=== PATIENT | male | born 1980 | race Caucasian/White ===

== ENCOUNTER 2024-10-17 01:13 | Emergency (ER) | payer BC, SELFPAY ==
--- NOTE | ~2024-10-17 | CT_ITS ---
EXAMINATION: CT abdomen pelvis w con DATE: 10/17/2024 10:04 INDICATION: Abdominal pain TECHNIQUE: Computed tomography (CT) of the abdomen and pelvis was performed with 100 CC Omnipaque 350 intravenous contrast. Automated exposure control and iterative reconstruction technique were employe d. Exam dose: 1036.88 mGy-cm total exam DLP. COMPARISON: 08/01/2024 CT abdomen pelvis FINDINGS: The lung bases are clear. Normal heart size. No pericardial or pleural effusion. The liver, gallbladder, bile ducts, spleen, pancreas, pancreatic duct, adrenal glands and right kidne y are unremarkable. Absent left kidney. Normal caliber of the abdominal aorta. No intraperitoneal or retroperitoneal or pelvic mass lesion or adenopathy or ascites. Mild prostate calcification. There is diffuse thickening of the urinary bladder wall which may be due to under distention versus c ystitis or mild bladder outlet obstruction. Normal appendix. No bowel obstruction or intraperitoneal free air. Small fat-containing umbilical hernia. Moderately prominent degenerative disc disease at L3-4. Mild degenerative spurring of the thoracic and lumbar spine is noted otherwise. No suspicious osteolytic or osteoblastic lesions. IMPRESSION: Normal appendix No bowel obstruction or free air Absent left kidney Diffuse bladder wall thickening; this may be due to under distention versus cystitis or mild bladder outlet obstruction. Correlation with urinalysis is recommended Reviewed, dictated and finalized at [facility] Reviewed, dictated and finalized at [facility] SPECIALIST IMPRESSION: Normal appendix No bowel obstruction or free air Absent left kidney Diffuse bladder wall thickening; this may be due to under distention versus cys titis or mild bladder outlet obstruction. Correlation with urinalysis is recomm ended
[2024-10-17 01:23] VITALS: BP 134/90; PULSE 86; RESP 15; TEMP 36.8; O2SAT 100
[2024-10-17 06:34] VITALS: BP 135/81; PULSE 87; RESP 14; TEMP 36.3; O2SAT 100
[2024-10-17 09:26] LABS: Basophils Percent Auto 0.2 % (0.2-1.2); Eosinophils Absolute Auto 0.1 K/mm3 (0-0.3); Eosinophils Percent Auto 1.2 % (0-4.4); Hematocrit 44.3 % (42.0-52.0); Immature Granulocyte Absolute 0.04 K/mm3 (0.00-0.031); Immature Granulocyte Percent A 0.3 % (0-0.5); Lymphocytes Absolute Auto 1.79 K/mm3 (0.9-3.2); Lymphocytes Percent Auto 14.7 % (18.3-44.2); Mean Corpuscular HGB Conc 33.9 g/dl (32-36); Mean Corpuscular Hemoglobin 31.4 pg (26-34); Mean Corpuscular Volume 92.9 fl (80-100); Monocytes Absolute Auto 0.9 K/mm3 (0.1-0.6); Monocytes Percent Auto 7.4 % (2.6-8.5); Neutrophils Absolute Auto 9.3 K/mm3 (1.3-6.7); Neutrophils Percent Auto 76.2 % (45.5-73.1); Platelet Count Result 298 k/mm3 (150-375); Red Blood Count 4.77 M/mm3 (4.6-6.20); Red Cell Distribution Width 13.2 % (11.5-14.5); White Blood Count 12.2 K/mm3 (4.5-10.0)
[2024-10-17 09:40] LABS: Alanine Aminotransferase 23 U/L (6-50); Albumin Level 4.3 g/dL (3.5-5.1); Alkaline Phosphatase 70 U/L (38-126); Anion Gap 3 mmol/L (4-12); Aspartate Amino Transferase 23 U/L (17-59); Bilirubin,Total 0.9 mg/dL (0.2-1.3); Blood Urea Nitrogen 19 mg/dL (9-20); Calcium 9.8 mg/dL (8.4-10.2); Carbon Dioxide 32 mmol/L (22-30); Chloride 104 mmol/L (98-107); Estimated CRCL calculation 65 ml/min; Estimated Glomerular Filt Rate 51; Glucose 104 mg/dL (65-110); Lipase 77 U/L (23-300); Potassium 3.8 mmol/L (3.4-5.0); Sodium 139 mmol/L (137-145)
--- NOTE | 2024-10-17 09:44 | ED_ITS ---
HPI - Abdominal Pain General Chief Complaint: Abdominal Pain Stated Complaint: nausea, vomiting, abd pain Time Seen by Provider: 10/17/24 09:39 Source: patient Mode of arrival: ambulatory Limitations: no limitations History of Present Illness HPI narrative: 44 years old white male drove himself to the emergency room complaining of left abdominal pain associated with nausea vomiting up to 6 time, diarrhea up to 12 time since yesterday noon. History of IBS/diarrhea. He denies any fever or chills or respiratory symptoms or sick contact. Related Data Home Medications ?Medication ?Instructions ?Recorded ?Confirmed ?Last Taken ?Type albuterol 90 mcg-budesonide 80 2 inh inhalation DAILY PRN 10/17/24 10/17/24 Unknown History mcg/actuation HFA aerosol inhaler shortness of breath bupropion HCl 300 mg 24 hr tablet, 300 mg PO DAILY 10/17/24 10/17/24 10/16/24 History extended release (Wellbutrin XL) cetirizine 10 mg tablet (24Hour 10 mg PO Q12H PRN allergy symptoms 10/17/24 10/17/24 10/16/24 History Allergy) duloxetine 60 mg capsule,delayed 60 mg PO DAILY 10/17/24 10/17/24 10/16/24 History release (Cymbalta) pantoprazole 20 mg tablet,delayed 20 mg PO QAM 10/17/24 10/17/24 10/16/24 History release tadalafil 20 mg tablet (Cialis) 20 mg PO DAILY PRN sexual activity 10/17/24 10/17/24 10/10/24 History valacyclovir 500 mg tablet 500 mg PO DAILY 10/17/24 10/17/24 10/16/24 History (Valtrex) Allergies Allergy/AdvReac Type Severity Reaction Status Date / Time No Known Allergies Allergy Verified 10/17/24 09:08 Review of Systems 2 Review of Systems: All systems reviewed & are unremarkable except as noted in HPI and below Exam 2 Narrative: General appearance: Well-developed, well-nourished Skin: Normal color Head: Normocephalic, nontraumatic Eyes: Clear conjunctiva Neck: Supple, nontender Chest and respiratory: Airway patent, no respiratory distress, no accessory muscle use Heart: Regular rate/rhythm Abdomen: Soft, diffuse tenderness, no organomegaly, hyperactive bowel sounds Musculoskeletal: Normal range of motion, nontender back Neurologic: Alert and oriented ?3, PATIENT ACCESS ASSOCIATE is normal as tested, no gross motor deficit Course Vital Signs Vital signs: Vital Signs Temperature 36.8 C 10/17/24 01:23 Pulse Rate 86 10/17/24 01:23 Respiratory Rate 15 10/17/24 01:23 Blood Pressure 134/90 10/17/24 01:23 Pulse Oximetry 100 10/17/24 01:23 Oxygen Delivery Room Air 10/17/24 01:23 Temperature 36.3 C L 10/17/24 06:34 Pulse Rate 76 10/17/24 11:00 Respiratory Rate 17 10/17/24 11:00 Blood Pressure 118/67 10/17/24 11:00 Pulse Oximetry 96 10/17/24 11:00 Oxygen Delivery Room Air 10/17/24 01:23 MDM - Abdominal Pain MDM Narrative Medical decision making narrative: Patient came with abdominal pain, nausea vomiting and diarrhea for the last 24 hours Vital signs are stable Physical examination consistent with diffuse abdominal tenderness and hyperactive bowel sounds Differential diagnosis includes viral gastroenteritis, IBS flare, dehydration, electrolyte imbalance Blood workup today includes CBC, CMP, lipase showed WBC of 12.2, creatinine of 1.5, Urinalysis showed CT abdomen and pelvis with IV contrast showed Differential Diagnosis Differential diagnosis: Likely abdominal pain, acute appendicitis, diverticulitis, gastroenteritis and pancreatitis Medical Records Attestation: I reviewed the patient's medical records. Lab Data Attestation: I reviewed the patient's lab results. 10/17/24 09:18 10/17/24 09:18 Labs: Lab Results 10/17/24 10/17/24 Range/Units 09:18 10:18 WBC 12.2 H (4.5-10.0) K/mm3 RBC 4.77 (4.6-6.20) M/mm3 Hgb 15.0 (14.0-18.0) g/dL Hct 44.3 (42.0-52.0) % MCV 92.9 (80-100) fl MCH 31.4 (26-34) pg MCHC 33.9 (32-36) g/dl RDW 13.2 (11.5-14.5) % Plt Count 298 (150-375) k/mm3 MPV 9.0 (7.4-10.4) fl Immature Gran % (Auto) 0.3 (0-0.5) % Neut % (Auto) 76.2 H (45.5-73.1) % Lymph % (Auto) 14.7 L (18.3-44.2) % [place] % (Auto) 7.4 (2.6-8.5) % Eos % (Auto) 1.2 (0-4.4) % Baso % (Auto) 0.2 (0.2-1.2) % Lymph # (Auto) 1.79 (0.9-3.2) K/mm3 [place] # (Auto) 0.9 H (0.1-0.6) K/mm3 Eos # (Auto) 0.1 (0-0.3) K/mm3 Baso # (Auto) 0.0 (0.0-0.1) K/mm3 Abs Immat Gran (auto) 0.04 H (0.00-0.031) K/mm3 Absolute Neuts (auto) 9.3 H (1.3-6.7) K/mm3 Absolute Nucleated RBC 0.000 (0.0-0.012) K/mm3 Nucleated RBC % 0.0 (0.0-0.2) % Sodium 139 (137-145) mmol/L Potassium 3.8 (3.4-5.0) mmol/L Chloride 104 (98-107) mmol/L Carbon Dioxide 32 H (22-30) mmol/L Anion Gap 3 L (4-12) mmol/L BUN 19 (9-20) mg/dL Creatinine 1.50 H (0.7-1.3) mg/dL Estim Creat Clear Calc 65 ml/min Estimated GFR 51 L (59 - ) Glucose 104 (65-110) mg/dL Calcium 9.8 (8.4-10.2) mg/dL Total Bilirubin 0.9 (0.2-1.3) mg/dL AST 23 (17-59) U/L ALT 23 (6-50) U/L Alkaline Phosphatase 70 (38-126) U/L Total Protein 7.0 (6.3-8.2) g/dL Albumin 4.3 (3.5-5.1) g/dL Lipase 77 (23-300) U/L Urine Color Yellow (Yellow) Urine Appearance Clear (Clear) Urine pH 6.5 (5.0-9.0) Ur Specific [place] > 1.045 H (1.001-1.035) Urine Protein Trace (Negative) mg/dL Urine Glucose (UA) 2+ H (Negative) mg/dL Urine Ketones Trace H (Negative) mg/dL Ur Blood (Man) Negative (Negative) Urine Nitrate Negative (Negative) Urine Bilirubin Negative (Negative) Urine Urobilinogen 1.0 (<2.0) mg/dL Leukocyte Esterase Rfl Negative (Negative) CHRISTINE/UL Urine RBC 0-2 (0-2) /hpf Urine WBC 0-5 (0-3) /hpf Ur Squamous Epith Cells None seen (Few) /hpf Urine Bacteria None seen /hpf Urine Casts 0-2 Imaging Data Radiologist's impression: ITS Impressions Abdomen/Pelvis CT 10/17/24 10:43 IMPRESSION: Normal appendix No bowel obstruction or free air Absent left kidney Diffuse bladder wall thickening; this may be due to under distention versus cystitis or mild bladder outlet obstruction. Correlation with urinalysis is recommended Critical Care Time Critical Care Time Critical Care Time: No Discharge Plan Discharge Clinical Impression: Gastroenteritis, Dehydration Patient Disposition: Home, Self-Care Condition: Stable Instructions: Dehydration (DC), Gastroenteritis (ED) Additional Instructions: Return if symptoms are worsening , call your family physician for appointment, take Tylenol as as needed for aches and pain, continue home medications. Check blood workup for kidney function in 5 days, encourage fluid intake Patient Language: Telugu Prescriptions: New ondansetron 4 mg tablet,disintegrating 4 mg PO Q4H 0 Days Qty: 10 0RF Rx Instructions: give 1st dose 30min before emetogenic chemo No Action valacyclovir [Valtrex] 500 mg tablet 500 mg PO DAILY bupropion HCl [Wellbutrin XL] 300 mg tablet extended release 24 hr 300 mg PO DAILY pantoprazole 20 mg tablet,delayed release (DR/EC) 20 mg PO QAM duloxetine [Cymbalta] 60 mg capsule,delayed release(DR/EC) 60 mg PO DAILY albuterol-budesonide 90-80 mcg/actuation HFA aerosol inhaler 2 inh inhalation DAILY PRN (Reason: shortness of breath) tadalafil [Cialis] 20 mg tablet 20 mg PO DAILY PRN (Reason: sexual activity) Rx Instructions: administer approximately 30min before sexual activity; do not use more than 1 dose per 24hrs cetirizine [24Hour Allergy] 10 mg tablet 10 mg PO Q12H PRN (Reason: allergy symptoms) Follow-up/Referrals: UNKNOWN,DOCTOR [Non-Staff] -
[2024-10-17] MEDS: ONDANSETRON INJ 4 MG/2 ML VIAL IV PUSH (10:15)
[2024-10-17] MEDS: SODIUM CHLORIDE 0.9% IV 1,000 ML 999 ML IV CONT ×2 (10:15→10:58)
[2024-10-17] MEDS: fentaNYL CITRATE INJ (*CRX) 100 MCG/2 ML VIAL 50 MCG IV PUSH (10:15)
[2024-10-17 10:34] LABS: Add Urine Microscopic? YES; Appearance Urine Clear (Clear); Bacteria Urine None Seen /hpf; Bilirubin Urine Negative (Negative); Blood Urine Negative (Negative); Color Urine Yellow (Yellow); Glucose Urine UA 2+ mg/dL (Negative); Ketones Urine Trace mg/dL (Negative); Leukocyte Esterase Ur Negative LEU/UL (Negative); Nitrate Urine Negative (Negative); Non Pathogenic Casts 0-2; Protein Urine Trace mg/dL (Negative); RBC Urine 0-2 /hpf (0-2); Specific Grav Ur > 1.045 (1.001-1.035); Squamous Epithelial Cell Urine None Seen /hpf (Few); WBC Urine 0-5 /hpf (0-3); pH Urine 6.5 (5.0-9.0)
[2024-10-17 11:00] VITALS: BP 118/67; PULSE 76; RESP 17; O2SAT 96
[2024-10-17 11:26] VITALS: BP 112/59; PULSE 85; RESP 18; TEMP 36.6; O2SAT 98
--- OUTSIDE RECORDS SUMMARY | 2024-10-24 12:28 | XMS_ITS | Continuity of Care Document ---
Author Organization [place] - [facility], [facility] [place] Address [address] [place] [address] Care Team Providers Care Coffee Maker Servicer Name Role Phone ALTON SEO Primary Care Provider [phone] Assessment Encounter Date Assessment Date Assessment LastModified by Organization Details LastModified Time 10/01/2024 10/01/2024 The patient gave verbal consent using TelePhonic services and the consent is documented in the medical record prior to using the service. The patient has been informed of what a TeleMedicine visit is. Patient is located at home. Provider is located at office. Names and roles of persons in addition to the patient and provider participating in telemedicine services include staff, . The patient had a 11 minute TeleMedicine consultation via phone call to discuss the following: D/w pt about his findings and further plan of care. Explained about different options for her. Pt declined to go to ED. Meds as directed. Good liquid and fiber intake explained. Educated pt about alarming symptoms to monitor at home and call us back or get checked in ED. Pt verbalized understanding it. F/u as directed. [email or web address] Not available 10/01/2024 14:30:33 Plan of Treatment Reminders Order Date Submit Date Provider Last Modified By Organization Details Last Modified Time Details Appointments Follow Up 2024 09:30A Braden Seo MD Not available Not available Not available Any 15 2024 07:30A Braden Cardona MD Not available Not available Not available Lab None recorded. Referral rheumatol ogist referral - Please call patient to schedule an appointme nt. Thank you. 2023 024 [facility], [address], [place], [address], 10/18/2024 23:19:32 Procedures None recorded. Surgeries None recorded. Imaging None recorded. Medication Orders ondansetr on 4 mg disintegr ating tablet 2023 024 [id number], [address] [facility], [place], [place], [id number], 10/01/2024 14:26:50 Patient TargetsNo targets recorded. Patient Instructions Encounter Date Encounter Id Patient Instructions Last Modified By Organization Details Last Modified Time 10/01/2024 [id number] Due to the COVID-19 (Novel Coronavirus) pandemic, it is within this context (and with the understanding that this method of patient encounter is in the patient? s best interest as well as the health and safety of other patients and the public) that ? telehealth? is being provided for this patient encounter rather than a [id number] visit. This patient encounter is appropriate at this time. This patient has been advised of the potential risks and limitations of this mode of treatment (including, but not limited to, the absence of in-person examination) and has agreed to be treated in a remote fashion despite these risks. Any and all of the patient? s/patient? s family? s questions on this issue have been answered, and I have made no promises or guarantees to the patient. The patient has also been advised to contact this office for worsening conditions or problems, and seek emergency medical treatment and/or call 911 if the patient deems either necessary. HPI and/or vitals, if listed, were provided by the patient. 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 Raynaud's, chronic nausea (Has seen GI and got all work up done) Please call patient to schedule an appointment. Thank you. Referring Physician: Alton Seo, Family Medicine, Encounter Date: 10/01/2024 Results Created Date Observation Date Name Description Value Unit Range Abnormal Flag Note LastModifiedBy Organization Detail LastModifiedTime 10/16/19 25 10/16/2024 XR, shoul pavithra, 2 or more view No observ ation record ed. [address] [facility] [address], [place], [address], 10/20/2024 10:48:08 10/16/19 25 10/16/2024 XR, hand, 3 or more view No observ ation record ed. [address] [facility] [address], [place], [address], 10/20/2024 10:49:45 10/16/19 25 10/16/2024 XR, cervi cuca spine , 4 or 5 view No observ ation record ed. [address] [facility] [address], [place], [address], 10/20/2024 10:50:27 10/17/19 25 10/16/2024 XR, shoul pavithra, 2 or more view No observ ation record ed. [address] [facility] [address], [place], [address], 10/20/2024 10:53:53 10/17/19 25 10/17/2024 CT, abdom en + pelvi s, w/ contr ast No observ ation record ed. [place] [address], [place], [address], 10/20/2024 10:54:31 Result Notes None recorded. Problems Name Problem SNOMED Code Status Onset Date Resolution Date Notes Provider Name and Address Organization Details Recorded Time Lateral epicondylitis 774303704 Active Not Available [facility] 3 17:44:47 Mixed anxiety and depressive disorder 363357320 Active 2017 Not Available [facility] 3 17:44:47 Gastroesophag eal reflux disease 211625319 Active Not Available [facility] 3 17:44:47 Raynaud's phenomenon 340725983 Active Not Available [facility] 3 17:44:47 Vitamin D deficiency 58716636 Active 2017 Not Available [facility] 3 17:44:47 Seasonal allergic rhinitis 714211877 Active Not Available [facility] 3 17:44:47 Recurrent herpes simplex 92973583 Active 2017 Not Available [facility] 3 17:44:47 Obesity 018140350 Active 2017 Not Available [facility] 3 17:44:48 Hyperlipidemi a 35547394 Active 2017 Not Available [facility] 3 17:44:48 Carpal tunnel syndrome 06368522 Active Not Available [facility] 3 17:44:48 Verruca plantaris 97299788 Active 2019 Not Available [facility] 3 17:44:48 Bilateral hearing loss 70955837 Active 2022 Not Available [facility] 3 17:44:48 Erectile dysfunction 675891835 Active 2022 Alton Seo MD [address], [place], [address] , [facility] 3 14:46:49 Chronic kidney disease stage 3 437279278 Active 2023 Alton Seo MD [address], [place], [address] , [facility] 4 10:45:44 Hypertensive disorder 52761239 Active 2023 Alton Seo MD [address], [place], [address] , [facility] 4 10:51:54 Irritable bowel syndrome 24705078 Active 2023 Alton Soe MD [address], [place], [address] , [facility] 4 10:53:57 Polyarthropat hy 70232060 Active 2023 Alton Seo MD [address], [place], [address] , [facility] 4 10:54:48 Obstructive sleep apnea syndrome 76111623 Active 2023 Jeronimo Cardona MD [address], [place], [address] , [facility] 4 10:33:02 Male hypogonadism 36289526 Active 2023 Alton Seo MD [address], [place], [address] , [facility] 4 11:44:51 Gastroenterit is 96516062 Active 2023 Alton Seo MD [address], [place], [address] , [facility] 4 14:28:45 Irritable bowel syndrome with diarrhea 574476709 Active 2023 Jeny Sharma MD [address], [place], [address] , [facility] 4 12:02:46 Nausea 842442994 Active 2023 Alton Seo MD [address], [place], [address] , [facility] 4 14:20:36 Fatigue 29000465 Active 2023 Alton Seo MD [address], [place], [address] , [facility] 4 14:28:58 Viral gastritis 757957396 Active 2023 Alton Seo MD [address], [place], [address] , [facility] 4 14:29:10 Notes:Medical History: Depre ssion/Anxiety Left hearing loss Left tinnitus Rhinitis with postnasal drip Bruxism Obesity with mild OSAHS, AHI = 8, 06/03/24, on CPAP c/o IVRC Treatment-emergent central apneas Hypertension Hyperlipidemia T2DM [place] Cholelithiasis CKD ED Recurrent HSV infection Vit D deficiency Right CTS Procedure History: EGD 2015 Colonoscopy with polypectomies 2020 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 Procedures Surgical History Date Name Laterality Status Provider Name and Address Organization Details Recorded Time colonoscopy completed Ami Michael MA [facility] [employer] [facility] 06/09/2024 09:49:41 Endoscopy completed Ami Michael MA [facility] [employer] [facility] 06/09/2024 09:49:53 Imaging Results None recorded. Procedure Notes None recorded. Medical Equipment None Reported. Allergies No known drug allergies Medications Name Sig Start Date Stop Date Status Note LastModified by Organization Details LastModified Time cyclobenzap rine 10 mg tablet TAKE 1 TABLET BY MOUTH THREE TIMES DAILY FOR 10 DAYS 05/11 completed Not Available Not Available Not Available buspirone 5 mg tablet TAKE 1 TABLET BY MOUTH TWICE DAILY 09/02 completed Not Available Not Available Not Available sildenafil 50 mg tablet TAKE 1 TABLET BY MOUTH DAILY 30 MINUTES BEFORE SEXUAL ACTIVITY NEEDED 04/27 completed Not Available Not Available Not Available triamcinolo ne acetonide 0.5 % topical cream APPLY A THIN LAYER TO THE AFFECTED AREA(S) BY TOPICAL ROUTE 2 TIMES PER DAY as needed active Not Available Not Available No t Available azithromyci n 250 mg tablet TAKE 2 TABLETS (500 MG) BY ORAL ROUTE ONCE DAILY FOR 1 DAY THEN 1 TABLET (250 MG) BY ORAL ROUTE ONCE DAILY FOR 4 DAYS 03/05 completed Not Available Not Available Not Available benzonatate 200 mg capsule Take 1 capsule 3 times a day by oral route as needed for 10 days. 03/13 completed Not Available Not Available Not Available prednisone 20 mg tablet TAKE 2 TABLETS BY MOUTH DAILY FOR 5 DAYS 03/05 completed Not Available Not Available Not Available sertraline 100 mg tablet TAKE 2 TABLETS BY MOUTH EVERY EVENING 04/24 completed Not Available Not Available Not Available metronidazo le 250 mg tablet TAKE 1 TABLET BY MOUTH THREE TIMES DAILY FOR 10 DAYS 04/24 completed Not Available Not Available Not Available metronidazo le 500 mg tablet Take 1 tablet twice a day by oral route as directed for 5 days. 09/02 completed Not Available Not Available Not Available valacyclovi r 500 mg tablet TAKE 1 TABLET BY MOUTH DAILY active Not Available Not Available No t Available ciprofloxac in 500 mg tablet Take 1 tablet twice a day by oral route as directed for 5 days. 07/01 completed Not Available Not Available Not Available sulfamethox azole 800 mg-trimetho prim 160 mg tablet TK ONE T PO Q 12 H TAT 03/13 completed Not Available Not Available Not Available pantoprazol e 20 mg tablet,wendy yed release TAKE 1 TABLET BY MOUTH EVERY MORNING BEFORE BREAKFAST active Not Available Not Available No t Available meloxicam 7.5 mg tablet 08/19 completed Not Available Not Available Not Available clindamycin 1 % topical gel APPLY TO THE AFFECTED AREAS OF SCALP TWICE DAILY NEEDED 03/05 completed Not Available Not Available Not Available benzonatate 100 mg capsule TAKE 1 CAPSULE BY MOUTH TWICE DAILY NEEDED FOR COUGH 03/05 completed Not Available Not Available Not Available pantoprazol e 40 mg tablet,wendy yed release TAKE 1 TABLET BY MOUTH DAILY 07/21 completed Not Available Not Available Not Available tacrolimus 0.1 % topical ointment MICHELLE TO GROIN AREA BID PRN 04/18 completed Not Available Not Available Not Available oseltamivir 75 mg capsule TK 1 C PO BID FOR 5 DAYS 04/18 completed Not Available Not Available Not Available triamcinolo ne acetonide 0.1 % topical ointment 03/05 completed Not Available Not Available Not Available ranitidine 150 mg tablet TAKE 1 TABLET BY MOUTH TWICE DAILY 04/18 completed Not Available Not Available Not Available clotrimazol e-betametha sone 1 %-0.05 % topical cream APPLY TO THE AFFECTED AND SURROUNDI NG AREAS OF SKIN BY TOPICAL ROUTE 2 TIMES PER DAY IN THE MORNING AND EVENING FOR 2 WEEKS active Not Available Not Available No t Available sertraline 25 mg tablet 04/18 completed Not Available Not Available Not Available diclofenac sodium 75 mg tablet,wendy yed release TAKE 1 TABLET BY MOUTH EVERY 12 HOURS WITH FOOD NEEDED 03/05 completed Not Available Not Available Not Available montelukast 10 mg tablet TAKE 1 TABLET BY MOUTH EVERY DAY AT BEDTIME 05/11 completed Not Available Not Available Not Available mupirocin 2 % topical ointment MICHELLE AA TOPICALLY TID FOR 7 DAYS 04/18 completed Not Available Not Available Not Available ergocalcife rol (vitamin D2) 1,250 mcg (50,000 unit) capsule TAKE 1 CAPSULE BY MOUTH ONCE WEEKLY 05/14 completed Not Available Not Available Not Available cefuroxime axetil 500 mg tablet active Not Available Not Available No t Available levofloxaci n 500 mg tablet active Not Available Not Available Not Available methylpredn isolone 4 mg tablets in a dose pack Take as directed; finish all medicatio n 04/18 completed Not Available Not Available Not Available albuterol sulfate HFA 90 mcg/actuati on aerosol inhaler INHALE 2 PUFFS BY MOUTH EVERY 4 TO 6 HOURS NEEDED FOR SHORTNESS OF BREATH OR WHEEZING active Not Available Not Available No t Available ondansetron 4 mg disintegrat ing tablet Place 1 tablet every 6-8 hours by transling ual route as needed for 7 days. active Not Available Not Available No t Available fluticasone propionate 50 mcg/actuati on nasal spray,suspe nsion SHAKE LIQUID AND USE 2 SPRAYS IN EACH NOSTRIL EVERY DAY active Not Available Not Available No t Available sertraline 50 mg tablet 04/18 completed Not Available Not Available Not Available dicyclomine 10 mg capsule active Not Available Not Available Not Available diazepam 5 mg tablet 04/18 completed Not Available Not Available Not Available amoxicillin 875 mg-potassiu m clavulanate 125 mg tablet TAKE 1 TABLET BY MOUTH EVERY 12 HOURS FOR 10 DAYS 03/05 completed Not Available Not Available Not Available clindamycin phosphate 1 % topical solution 08/19 completed Not Available Not Available Not Available rosuvastati n 10 mg tablet TAKE 1 TABLET BY MOUTH EVERY DAY AT BEDTIME active Not Available Not Available No t Available bupropion HCl XL 300 mg 24 hr tablet, extended release TAKE 1 TABLET BY MOUTH EVERY DAY active Not Available Not Available No t Available bupropion HCl XL 150 mg 24 hr tablet, extended release TAKE 1 TABLET BY MOUTH EVERY DAY 03/05 completed Not Available Not Available Not Available tadalafil 20 mg tablet TAKE 1 TABLET BY MOUTH EVERY DAY active Not Available Not Available No t Available Cialis 5 mg tablet TK 1 T PO QD OR 2 TO 4 TS PO 3 H PRIOR TO INTERCOUR SE PRN 08/19 completed Not Available Not Available Not Available duloxetine 60 mg capsule,del ayed release TAKE 1 CAPSULE BY MOUTH EVERY DAY active Not Available Not Available No t Available metronidazo le 500mg 04/27 completed Not Available Not Available Not Available mometasone 0.1 % topical solution APPLY TO SCALP IN 3 ROWS TWICE DAILY NEEDED. RUB IN. DO NOT RINSE. 03/05 completed Not Available Not Available Not Available Pylera 140 mg-125 mg-125 mg capsule TK 3 CS PO QID FOR 7 DAYS 06/20 completed Not Available Not Available Not Available Symbicort 160 mcg-4.5 mcg/actuati on HFA aerosol inhaler INHALE 2 PUFFS BY MOUTH TWICE DAILY 04/18 completed Not Available Not Available Not Available testosteron e 20.25 mg/1.25 gram per pump act.(1.62 %) transdermal gel Apply 2 pumps every day by transderm al route as directed for 30 days. 09/02 completed Not Available Not Available Not Available Farxiga 10 mg tablet TAKE 1 TABLET BY MOUTH EVERY DAY DIRECTED active Not Available Not Available No t Available Vitals None Recorded Social History Question Answer Notes LastModified by Organizat ion Details LastModified Time Tobacco Smoking Status Never Smoker Alton Seo MD [address], [address], [facility] [employer] 04/24/2023 14:52:09 Do You Have An Advance Directive? No [id number] Information not available 12/12/2022 What Is Your Level Of Alcohol Consumption? None [id number] Information not available 12/12/2022 Do You Wear A Helmet When Biking? No [email or web address] Information not available 04/24/2023 What Is Your Level Of Caffeine Consumption? Moderate [email or web address] Information not available 04/24/2023 In The 14 Days Before Symptom Onset, Have You Had Close Contact With A Laboratory-confi rmed COVID-19 While That Case Was Ill? No Information not available 04/24/2023 In The 14 Days Before Symptom Onset, Have You Had Close Contact With A Person Who Is Under Investigation For COVID-19 While That Person Was Ill? No Information not available 04/24/2023 What Type Of Diet Are You Following? GLUTENFREE [email or web address] Information not available 04/24/2023 What Is The Highest Grade Or Level Of School You Have Completed Or The Highest Degree You Have Received? [id number] Information not available 04/24/2023 Do You Have An Electrostatic Air Filter? 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 No [email or web address] Information not available 04/24/2023 What Is The Fluoride Status Of Your Home? Unknown [email or web address] Information not available 04/24/2023 Are There Any Guns Present In Your Home? No [email or web address] Information not available 04/24/2023 Do You Have A Humidifier? Yes Information not available 05/11/2024 Do You Use Insect Repellent Routinely? Yes [email or web address] Information not available 04/24/2023 Where Do You Live? SingleLevelHouse [email or web address] Information not available 04/24/2023 Do You Have A Medical Power Of Software Analyst? No [email or web address] Information not available 04/24/2023 Do You Have Moisture Problems In Your Home? No Information not available 05/11/2024 What Was The Date Of Your Most Recent Tobacco Screening? 06/09/2024 [email or web address] Information not available 06/09/2024 Do You Have Any Pets? No Information not available 04/24/2023 What Is Your Relationship Status? [id number] Information not available 12/12/2022 Do You Use Your Seat Belt Or Car Seat Routinely? Yes [email or web address] Information not available 04/24/2023 Do You Have Smoke And Carbon Monoxide Detectors In Your Home? Yes [email or web address] Information not available 04/24/2023 Are You Passively Exposed To Smoke? No [email or web address] Information not available 04/24/2023 Are There Any Smokers In Your House? No [email or web address] Information not available 04/24/2023 Do You Participate In Social Media? No [email or web address] Information not available 04/24/2023 Do You Feel Stressed (tense, Restless, Nervous, Or Anxious, Or Unable To Sleep At Night)? [id number] [email or web address] Information not available 04/24/2023 Do You Use Any Illicit Or Recreational Drugs? No Information not available 04/24/2023 Do You Use Sunscreen Routinely? Yes [email or web address] Information not available 04/24/2023 Has Tobacco Cessation Counseling Been Provided? No [email or web address] Information not available 04/24/2023 Have You Recently Traveled Abroad? No Information not available 04/24/2023 Are You Currently In School? No [email or web address] Information not available 04/24/2023 Do You Have Any Dietary Restrictions? No [email or web address] Information not available 04/24/2023 Do You Or Have You Ever Used Any Other Forms Of Tobacco Or Nicotine? No [email or web address] Information not available 04/24/2023 Sex: Male Functional Status Question Answer Note LastModified by Organizat ion Details LastModified Time What is your exercise level? Moderate [id number] Information not available 12/12/2022 Mental Status None recorded. Family History Relationship Description Onset Age of this Age Resolved Age Notes LastModified by Organization Details LastModified Time Brother Disorder of thyroid gland [email or web address] Not available 2023 18:25:40 Brother Malignant tumor of thyroid gland [email or web address] Not available 2023 11:35:35 Brother Hyperlipidem ia [email or web address] Not available 2023 11:35:36 Brother Myocardial infarction [email or web address] Not available 05/04 18:28:25 Mother Anxiety disorder [email or web address] Not available 2022 14:52:15 Mother Depressive disorder [email or web address] Not available 2022 14:52:15 Mother Alzheimer's disease [email or web address] Not available 2023 11:35:36 Maternal Grandmother Diabetes mellitus [email or web address] Not available 2022 14:52:15 Maternal Grandmother Malignant tumor of breast [email or web address] Not available 2023 11:35:36 Father Heart disease 43 Not available 2022 14:52:15 Father Substance abuse [email or web address] Not available 2022 14:52:15 Maternal Grandfather Cerebrovascu lar accident [email or web address] Not available 11:35:36 Sister Rheumatoid arthritis [email or web address] Not available 2023 11:35:36 Paternal Grandmother Rheumatoid arthritis [email or web address] Not available 2023 11:35:36 Paternal Grandmother Alzheimer's disease [email or web address] Not available 2023 11:35:36 Medical History Condition Response HEADACHES/MIGRAINES Y OTHER # 1 Y GI PROBLEMS Y ANXIETY DISORDER Y DEPRESSION (INCLUDING POST ) Y ERECTILE DYSFUNCTION Y HIGH CHOLESTEROL / HYPERLIPIDEMIA Y Immunizations Vaccine Type Date Status Note Provider Nam e and Address Organization Details Recorded Time Influenza, split virus, quadrivalent, PF 2 completed Not Available [facility] 12/12/2022 17:46:16 influenza, unspecified formulation 5 completed Not Available [facility] 12/12/2022 17:46:16 Tdap 2 completed Not Available [facility] 12/12/2022 17:46:16 Influenza, split virus, quadrivalent, PF 2 completed Not Available [facility] 12/12/2022 17:46:16 Past Encounters Encounter ID Performer Location Encounter Start Date Encounter Closed Date Diagnosis/Indication Diagnosis SNOMED-CT Code Diagnosis ICD10 Code Diagnosis Note [id number] Jeny Sharma MD [facility] General Surgery [address] [address] 09/02/2024 11:35:18 09/02/2024 12:43:01 Irritable bowel syndrome with diarrhea 960331908 K58.0 [id number] Alton Seo MD [address] [address] 09/21/2024 17:45:39 09/21/2024 18:02:28 Chronic kidney disease stage 3 409724373 N18.30 Gastroesop hageal reflux disease 958115162 K21.9 Hypertensive disorder 38 646442 I10 Hyperlipidemia 62009132 E78.5 Irritable bowel syndrome with diarrhea 384327461 K58.0 Recurrent herpes simplex 56397205 B00.9 [id number] Alton Seo MD [address] [address] 10/01/2024 12:30:33 10/01/2024 13:54:26 Nausea 560976794 R11.0 Polyarthropathy 32121228 M13.0 Fatigue 33374687 R53.83 Viral gastritis 98520062 7 K29.70 Health Concerns Section Related Observation LastModified by Organization Detai ls LastModified Time None Recorded Concern Status LastModified by Organization Details LastModified Time None Recorded Payers Encounter Date Sequence Insurance Name Policy Number Policy Gonzalez Covered Member ID Gonzalez Member ID Guarantor Name 10/01/2024 1 [facility] ([place] [id number] Zeke Sweet Zipfel [id number] Zeke Sweet Zipfel Notes Date Note Type Note Provider Name and Address Organization Details Recorded Time 10/01/2024 text/html Telephone visit.ACV. C/o nausea, feeling fatigued since he woke up today morning. No issues until yesterday night. Denies any unusual outside food intake/known sick contact. No fever/chills/cough /congestion/c/d/ur inary symptoms. Pt has chronic nausea and he is f/u with GI for it and they did lot of testing and it was all good. So his GI recommended him to see another specialist for any autoimmune conditions. Pt has chronic joints pain and ? Raynaud's. Never seen any specialist for it. Alton Seo MD [address] [place] [address], [place] [address], [place], [address], [place] [facility] 10/01/2024 14:30:51
--- OUTSIDE RECORDS SUMMARY | 2024-10-24 12:28 | XMS_ITS | Data Portability ---
Author Organization [place] - [facility], Main Office Address [address] [place] [address] Care Team Providers Care Svp Digital Sales Name Role Phone ALTON SEO Primary Care Provider Assessment Encounter Date Assessment Date Assessment LastModified by Organization Details LastModified Time 08/17/2024 08/17/2024 Assessment: Mild OSAHS, AHI = 8 Hypoventilation Plan: The following were reviewed and explained to the patient: [facility] home sleep study 04/30/24 AHI = 2, disproportionate O2 desaturation [facility] diagnostic sleep study 06/03/24 sleep onset = 20.5 minutes, REM onset = 121 minutes, AHI = 8, supine AHI = 9, REM AHI = 25, PLMI = 0.0 [facility] titration sleep study 06/17/24 sleep onset = 37 minutes, REM onset = 112.5 minutes, Alberto & Deena large Yanique nasal mask @ 9 cmH2O, PLMI = 0.0 PAP compliance downloaded and interpreted x 20 minutes. Data reviewed and explained to the patient. Average apnea/hypopnea index (AHI) is 0.3. Patient used PAP > 4 hours 80% of the time. PAP is set at 9 cmH2O. PAP will remain at 9 cmH2O. Ramp is set at 4 cmH2O x 15 minutes. Turn ramp off per patient request. Keep EPR +1 ramp only. Oxygen supplementation: none Keep humidifier level at 4. Keep tube temperature at 74 F. Patient is benefiting from PAP therapy. Encouraged patient to maintain PAP use more than 70% of the time. Statement of PAP use and benefits will be sent to the home care store. Educated the patient on problems and solutions associated with positive airway pressure (PAP) use. Difficulty tolerating pressure, mask leaks, intolerance of interface, nasal congestion, claustrophobic response, dry mouth, and unintentional mask removal during sleep were covered. Provided the patient with a list of local home care stores where positive airway pressure (PAP) units, accoutrement, and services are available. Home care store selection is based on patient's insurance carrier. Patient will setup an appointment with [facility] for supplies and pressure adjustments. A major predictor of success with use of PAP is follow-up with both the respiratory supplier and the treating physician. The respiratory supplier optimally will follow-up within two weeks after starting use while the treating physician optimally will follow-up within 90 days after starting therapy to assess adherence and effectiveness of treatment. The download results can show the treating physician information about adherence to treatment, residual AHI while on treatment and presence of large mask leakage. This information is especially helpful if the patient has residual sleepiness despite treatment. General information on sleep disordered breathing, evaluation of sleep disordered breathing, treatment with PAP therapy, and living with PAP therapy were covered. We discussed with the patient the impact of weight on: Sleep disordered breathing Hypertension Hyperlipidemia DM [place] We discussed with the patient the benefit of PAP therapy on: Sleep disordered breathing Depression/Anxiety Rhinitis Hypertension DM [place] ED Educated the patient on sleep hygiene measures. Relaxing rituals to rest easy, understanding foods with positive and negative impact on sleep, creating a peaceful sleep environment, timing of exercise, using herbal sleep aids, and practicing sleep-friendly meditation were covered. To determine how much sleep is needed, the patient will assess where he falls on the spectrum, examine what lifestyle factors such as work schedules and stress are affecting the quality and quantity of sleep. In general, adults need 7-9 hours of sleep. Educated the patient regarding foods that promote sleep. These include but are not limited to cherries, bananas, toast, oatmeal, and warm milk. Educated the patient regarding foods and drinks to avoid before bedtime. These include but are not limited to aged cheese, chocolate, spicy foods, tomato-based sauces, soy, ginseng tea and processed meat. Advocated influenza vaccination annually and pneumonia vaccination STAN. Advocated weight loss through diet and exercise. Patient's ideal body weight according to height and gender is up to 175 lbs. Encouraged patient to adjust caloric intake to maintain/achieve ideal body weight, emphasizing on fruits, vegetables, whole grains, and fat-free or low-fat products. These include lean meats, poultry, fish, beans, eggs, and nuts and foods that are low in saturated fats, trans-fats, cholesterol, salt (sodium), and glycemic index. Stressed the importance of regular exercise up to the patient's capacity limits. In this case, we recommend 20 min daily walking, 2 days a week of resistance training. Patient to monitor BP daily and bring records to PCP for further management. Follow-up: 1 year, August 2025 [email or web address] Not available 08/17/2024 09:13:43 09/21/2024 09/21/2024 D/w pt about his findings, recent labs and further plan of care. Answered all questions for pt. Pt doesn't have any DM in the past. Pt is on Farxiga for his CKD. Cont f/u with specialist as per schedule. F/u as directed. [email or web address] Not available 09/21/2024 18:04:22 10/01/2024 10/01/2024 The patient gave verbal consent [...] Pt verbalized understanding it. F/u as directed. [email or web address] Not available 10/01/2024 14:30:33 Plan of Treatment Reminders Order Date Submit Date Provider Last Modified By Organization Details Last Modified Time Details Appointments Follow Up 15 2024 09:30A Braden Seo MD Not available Not available Not available Any 15 2024 07:30A Braden Cardona MD Not available Not available Not available Lab H pylori Ag, stool 2023 024 [facility] (Lab), [address] [place], [address], 10/21/2024 13:35:03 Referral rheumatol ogist referral - Please call patient to schedule an appointme nt. Thank you. 2023 [facility], [address], [place], [address], 10/18/2024 23:19:32 Procedures None recorded. Surgeries None recorded. Imaging None recorded. Medication Orders dicyclomi ne 10 mg capsule [email or web address] [place] [address] [id number], [address] , [place], [place], [id number], 09/02/2024 11:40:40 valacyclo vir 500 mg tablet 2023 024 [id number], [address] [facility], [place], [place], [id number], 09/21/2024 18:00:11 pantopraz ole 20 mg tablet,de layed release 2023 024 [facility][id number], [address] [facility], [place], [place], [id number], 09/21/2024 18:00:09 rosuvasta tin 10 mg tablet 2023 024 [facility] #86553, [address] [facility], [place], [place], [id number], 09/21/2024 18:00:10 ondansetr on 4 mg disintegr ating tablet 2023 024 [facility] #39145, [address] [facility], [place], [place], [id number], 10/01/2024 14:26:50 Patient TargetsNo targets recorded. Patient Instructions Encounter Date Encounter Id Patient Instructions Last Modified By Organization Details Last Modified Time 07/08/2024 [id number] PT WITH IBS-D. T RY DICYCLOMINE 10 MG TID NEEDED . F/U IN 3 MTHS . [email or web address] Not available 07/08/2024 12:04:01 09/02/2024 [id number] PT WITH IBS-D . TRY DICYCLOMINE . WILL STOOL AG FOR H. PYLORI . F/U IN 2 WEEKS . [email or web address] Not available 09/02/2024 12:52:00 10/01/2024 [id number] Due to the COVID-19 (Novel Coronavirus) pandemic, it is within this context (and with the understanding that this method of patient encounter is in the patient? s best interest as well as the health and safety of other patients and the public) that ? telehealth? is being provided for this patient encounter rather than a cijr-vd-[id number] visit. This patient encounter is appropriate at [...] if listed, were provided by the patient. [email or web address] Not available 10/01/2024 12:55:43 Reason for Referral Engineering Specialist Referral for Polyarthropathy Chronic joints pain, ? Raynaud's, chronic nausea (Has seen GI and got all work up done) Please call patient to schedule an appointment. Thank you. Referring Physician: Alton Seo, Family Medicine, Encounter Date: 10/01/2024 Results Created Date Observation Date Name Description Value Unit Range Abnormal Flag Note LastModifiedBy Organization Detail LastModifiedTime 10/01/20 24 10/02/2024 CBC (INCL UDES DIFF/ PLT) white blood cell count 6.6 thous and/u L 3.8-10 .8 normal Not Available [employer] [facility] [address] [place], [address], 10/02/2024 03:31:54 10/01/20 24 10/02/2024 CBC (INCL UDES DIFF/ PLT) red blood cell count 4.64 erik on/uL 4.20-5 .80 normal Not Available [address], [address], 10/02/2024 03:31:54 10/01/20 24 10/02/2024 CBC (INCL UDES DIFF/ PLT) hemoglobin 14.4 g/dL 13.2-1 7.1 normal Not Available [address], [address], 10/02/2024 03:31:54 10/01/20 24 10/02/2024 CBC (INCL UDES DIFF/ PLT) hematocrit 44.5 % 38.5-5 0.0 normal Not Available [address], [address], 10/02/2024 03:31:54 10/01/20 24 10/02/2024 CBC (INCL UDES DIFF/ PLT) MCV 95.9 fL 80.0-1 00.0 normal Not Available [address], [address], 10/02/2024 03:31:54 10/01/20 24 10/02/2024 CBC (INCL UDES DIFF/ PLT) MCH 31.0 pg 27.0-3 3.0 normal Not Available [address], [address], 10/02/2024 03:31:54 10/01/20 24 10/02/2024 CBC (INCL UDES DIFF/ PLT) MCHC 32.4 g/dL 32.0-3 6.0 normal For adult s, a sligh t decre ase in the calcu lated MCHC value (in the range of 30 to 32 g/dL) is most likel y not clini gautam signi keon t; elsie er, it shoul d be inter prete d with cauti on in corre latio n with other red cell suki eters and the patie nt's clini cuca condi tion. Not Available [address], [address], 10/02/2024 03:31:54 10/01/20 24 10/02/2024 CBC (INCL UDES DIFF/ PLT) RDW 12.9 % 11.0-1 5.0 normal Not Available [address], [address], 10/02/2024 03:31:54 10/01/20 24 10/02/2024 CBC (INCL UDES DIFF/ PLT) platelet count 320 thous and/u L 140-40 0 normal Not Available [address], [address], 10/02/2024 03:31:54 10/01/20 24 10/02/2024 CBC (INCL UDES DIFF/ PLT) MPV 9.6 fL 7.5-12 .5 normal Not Available [address], [address], 10/02/2024 03:31:54 10/01/20 24 10/02/2024 CBC (INCL UDES DIFF/ PLT) absolute neutrophils 3333 cells /uL 1500-7 800 normal Not Available [address], [address], 10/02/2024 03:31:54 10/01/20 24 10/02/2024 CBC (INCL UDES DIFF/ PLT) absolute lymphocytes 2600 cells /uL 850-39 00 normal Not Available [facility] [address], [address], 10/02/2024 03:31:54 10/01/20 24 10/02/2024 CBC (INCL UDES DIFF/ PLT) absolute monocytes 475 cells /uL 200-95 0 normal Not Available [address], [address], 10/02/2024 03:31:54 10/01/20 24 10/02/2024 CBC (INCL UDES DIFF/ PLT) absolute eosinophils 158 cells /uL 15-500 normal Not Available [facility] [address], [address], 10/02/2024 03:31:54 10/01/20 24 10/02/2024 CBC (INCL UDES DIFF/ PLT) absolute basophils 33 cells /uL 0-200 normal Not Available [facility] [address], [address], 10/02/2024 03:31:54 10/01/20 24 10/02/2024 CBC (INCL UDES DIFF/ PLT) neutrophils 50.5 % normal Not Available [facility] [address], [address], 10/02/2024 03:31:54 10/01/20 24 10/02/2024 CBC (INCL UDES DIFF/ PLT) lymphocytes 39.4 % normal Not Available [facility] [address], [address], 10/02/2024 03:31:54 10/01/20 24 10/02/2024 CBC (INCL UDES DIFF/ PLT) monocytes 7.2 % normal Not Available [facility] [address], [address], 10/02/2024 03:31:54 10/01/20 24 10/02/2024 CBC (INCL UDES DIFF/ PLT) eosinophils 2.4 % normal Not Available [facility] [address], [address], 10/02/2024 03:31:54 10/01/20 24 10/02/2024 CBC (INCL UDES DIFF/ PLT) basophils 0.5 % normal Not Available [facility] [address], [address], 10/02/2024 03:31:54 10/01/20 24 10/02/2024 PSA, TOTAL PSA, total 0.25 NG/mL < or = 4.00 normal The total PSA value from this assay syste m is stand ardiz ed again st the WHO stand camille. The test resul t will be appro ximat dinesh 20% lower when damian red to the equim olar- stand ardiz ed total PSA ([place] man Coult er). Damian rison of seria l PSA resul ts shoul d be inter prete d with this fact in mind. This test was perfo rmed using the [employer] chemi lumin escen t metho d. Value s obtai simran from diffe rent assay metho ds canno t be used inter cedeno eably . PSA level s, regar dless of value , shoul d not be inter prete d as absol oscar evide nce of the prese nce or absen ce of disea se. Not Available [employer] [place] [address] [place], [address], 10/02/2024 03:31:55 10/13/20 24 10/16/2024 TESTO STERO NE, FREE, BIOAV AILAB LE AND TOTAL , MS albumin 4.2 g/dL 3.6-5. 1 Not Available [employer] [address] [place], [address], 10/16/2024 08:39:45 10/13/20 24 10/16/2024 TESTO STERO NE, FREE, BIOAV AILAB LE AND TOTAL , MS sex hormone binding globulin 16.3 nmol/ L 10-50 Not Available [employer] [address] [place], [address], 10/16/2024 08:39:45 10/13/20 24 10/16/2024 TESTO STERO NE, FREE, BIOAV AILAB LE AND TOTAL , MS testosterone , free 33.9 pg/mL 46.0-2 24.0 low Not Available [employer] [address] [place], [address], 10/16/2024 08:39:45 10/13/20 24 10/16/2024 TESTO STERO NE, FREE, BIOAV AILAB LE AND TOTAL , MS testosterone ,bioavailabl e 65.2 NG/dL 110.0- 575.0 low Not Available [facility] [address], [place], [address], 10/16/2024 08:39:45 10/13/20 24 10/16/2024 TESTO STERO NE, FREE, BIOAV AILAB LE AND TOTAL , MS testosterone , total, MS 164 NG/dL 250-11 00 low Men with clini gautam signi fican t hypog onada l sympt oms and testo stero ne value s repea tedly in the range of the 200-3 00 ng/dL or less, may benef it from testo stero ne treat ment after adequ ate risk and benef its couns eling . For addit ional infor sheila jacome e refer to https ://ed ucati on.qu estdi [employer]s. com/f aq/FA Q165 (This link is being provi ded for infor crow nal/e ducat ional purpo ses only. ) (Note ) This test was devel oped and its jesica tical perfo rmanc e issac cteri stics have been deter mined by [employer]. It has not been clear ed or appro joel by the FDA. This assay has been valid ated pursu ant to the CLIA regul ation s and is used for clini cuca purpo ses. MDF med fusio n [address] [facility] [address] [facility] [address] [phone] Pretty Perez MD, PhD Not Available [facility] [address], [place], [address], 10/16/2024 08:39:45 06/08/20 24 06/03/2024 polys omnog suraj, diagn ostic , 6 yrs or older No observ ation record ed. [email or web address] [facility] [place] [address] [place], [address], 06/22/2024 14:27:02 06/09/20 24 06/03/2024 home sleep study No observ ation record ed. [address] [place], [address], 06/22/2024 14:27:02 06/19/20 24 06/17/2024 home sleep study No observ ation record ed. [address] [place], [address], 06/22/2024 14:27:02 06/19/20 24 06/17/2024 polys omnog suraj, titra tion study No observ ation record ed. [address] [place], [address], 06/22/2024 14:27:01 07/29/20 24 07/29/2024 US, doppl er echoc ardio gram No observ ation record ed. [address], [place], [address], 09/21/2024 17:54:41 08/02/20 24 08/01/2024 CT, abdom en + pelvi s, w/ contr ast No observ ation record ed. [email or web address] [place] [address] [address], [place], [address], 09/21/2024 17:54:41 10/16/19 25 10/16/2024 XR, shoul pavithra, 2 or more view No observ ation record ed. [email or web address] [place] [address] Imaging [address], [place], [address], 10/20/2024 10:48:08 10/16/19 25 10/16/2024 XR, hand, 3 or more view No observ ation record ed. [email or web address] [place] [address] [address], [place], [address], 10/20/2024 10:49:45 10/16/19 25 10/16/2024 XR, cervi cuca spine , 4 or 5 view No observ ation record ed. [address] [facility] [address], [place], [address], 10/20/2024 10:50:27 10/17/19 25 10/16/2024 XR, shoul pavithra, 2 or more view No observ ation record ed. [address] [facility] [address], [place], [address], 10/20/2024 10:53:53 10/17/19 25 10/17/2024 CT, abdom en + pelvi s, w/ contr ast No observ ation record ed. [place] [address], [place], [address], 10/20/2024 10:54:31 Result Notes None recorded. Problems Name Problem SNOMED Code Status Onset Date Resolution Date Notes Provider Name and Address Organization Details Recorded Time Lateral epicondylitis 258404644 Active Not Available [facility] 3 17:44:47 Mixed anxiety and depressive disorder 571464628 Active 2017 Not Available [facility] 3 17:44:47 Gastroesophag eal reflux disease 811911618 Active Not Available [facility] 3 17:44:47 Raynaud's phenomenon 554017795 Active Not Available [facility] 3 17:44:47 Vitamin D deficiency 70454148 Active 2017 Not Available [facility] 3 17:44:47 Seasonal allergic rhinitis 618218041 Active Not Available [facility] 3 17:44:47 Recurrent herpes simplex 68229846 Active 2017 Not Available [facility] 3 17:44:47 Obesity 897910045 Active 2017 Not Available [facility] 3 17:44:48 Hyperlipidemi a 72503289 Active 2017 Not Available [facility] 3 17:44:48 Carpal tunnel syndrome 22880433 Active Not Available [facility] 3 17:44:48 Verruca plantaris 08246807 Active 2019 Not Available [facility] 3 17:44:48 Bilateral hearing loss 17590936 Active 2022 Not Available [facility] 3 17:44:48 Erectile dysfunction 340804792 Active 2022 Alton Seo MD [address], [place], [address] , [facility] 3 14:46:49 Chronic kidney disease stage 3 205972624 Active 2023 Alton Seo MD [address], [place], [address] , [facility] 4 10:45:44 Hypertensive disorder 72794403 Active 2023 Alton Seo MD [address], [place], [address] , [employer] [facility] 4 10:51:54 Irritable bowel syndrome 29157065 Active 2023 Alton Seo MD [address], [place], [address] , [facility] [facility] 4 10:53:57 Polyarthropat hy 01002496 Active 2023 Alton Seo MD [address], [place], [address] , [facility] [facility] 4 10:54:48 Obstructive sleep apnea syndrome 19289206 Active 2023 Jeronimo Cardona MD [address], [place], [address] , [facility] 4 10:33:02 Male hypogonadism 62166425 Active 2023 Alton Seo MD [address], [place], [address] , [facility] 4 11:44:51 Gastroenterit is 13421833 Active 2023 Alton Seo MD [address], [place], [address] , [facility] 4 14:28:45 Irritable bowel syndrome with diarrhea 214491525 Active 2023 Jeny Sharma MD [address], [place], [address] , [facility] - [facility] 4 12:02:46 Nausea 986780166 Active 2023 Alton Seo MD [address], [place], [address] , [facility] 4 14:20:36 Fatigue 18139709 Active 2023 Alton Seo MD [address], [place], [address] , [facility] - [facility] 4 14:28:58 Viral gastritis 542693323 Active 2023 Alton Seo MD [address], [place], [address] , [facility] 4 14:29:10 Notes:Medical History: Depre ssion/Anxiety Left hearing loss Left tinnitus Rhinitis with postnasal drip Bruxism Obesity with mild OSAHS, AHI = 8, 06/03/24, on CPAP c/o IVRC Treatment-emergent central apneas Hypertension Hyperlipidemia T2DM [place] Cholelithiasis CKD ED Recurrent HSV infection Vit D deficiency Right CTS Procedure History: EGD 2015 Colonoscopy with polypectomies 2020 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 Procedures Surgical History Date Name Laterality Status Provider Name and Address Organization Details Recorded Time colonoscopy completed Ami Michael MA [place] [facility] [facility] [employer] 06/09/2024 09:49:41 Endoscopy completed [facility] 06/09/2024 09:49:53 Imaging Results Imaging Date Name Status LastModified by Organization Details LastModified Time 06/03/2024 polysomnogram, diagnostic, 6 yrs or older completed [email or web address] [facility] [place] [address] [place], [address], 06/22/2024 14:27:02 06/03/2024 home sleep study completed [email or web address] [place], [address], 06/22/2024 14:27:02 06/17/2024 home sleep study completed [email or web address] [place], [address], 06/22/2024 14:27:02 06/17/2024 polysomnogram, titration study completed [email or web address] [place], [address], 06/22/2024 14:27:01 07/29/2024 US, doppler echocardiogram completed [address] [facility] [address], [place], [address], 09/21/2024 17:54:41 08/01/2024 CT, abdomen + pelvis, w/ contrast completed [email or web address], [place], [address], 09/21/2024 17:54:41 10/16/2024 XR, shoulder, 2 or more view completed [facility] [address], [place], [address], 10/20/2024 10:48:08 10/16/2024 XR, hand, 3 or more view completed [email or web address] [facility] [address], [place], [address], 10/20/2024 10:49:45 10/16/2024 XR, cervical spine, 4 or [address] view completed [address] [facility] [address], [place], [address], 10/20/2024 10:50:27 10/16/2024 XR, shoulder, 2 or more view completed [address] [facility] [address], [place], [address], 10/20/2024 10:53:53 10/17/2024 CT, abdomen + pelvis, w/ contrast completed [address], [place], [address], 10/20/2024 10:54:31 Procedure Notes None recorded. Medical Equipment None [...] Available Not Available No t Available Vitals Date Recorded Body height Body mass index (BMI) Body weight Heart rate Oxygen saturation Oxygen saturation in Arterial blood by Pulse oximetry Systolic blood pressure Diastolic blood pressure Provider Name and Address Organization Details Last Updated DateTime 4 175.26 cm 32.2 kg/m2 28379.1 4 g 80 /min 98 % 98 % 122 mm[Hg] 76 mm[Hg] WARD [facility] 4 11:05:37 Date Recorded Body height Body mass index (BMI) Body weight Body temperature Heart rate Oxygen saturation Oxygen saturation in Arterial blood by Pulse oximetry Systolic blood pressure Diastolic blood pressure Provider Name and Address Organization Details Last Updated DateTime 4 175.26 cm 33.2 kg/m2 805515. 28 g 98.4 [degF] 80 /min 95 % 95 % 120 mm[Hg] 74 mm[Hg] Colin Mccollum CMA [facility] 4 08:53:18 Date Recorded Heart rate Respiratory rate Provider N jaylan and Address Organization Details Last Updated DateTime 08/17/2024 80 /min 15 /min Jeronimo Cardona MD [address], [facility] [address], [place], [address], [facility] 08/17/2024 09:01:10 Date Recorded Body height Heart rate Oxygen saturation Oxygen saturation in Arterial blood by Pulse oximetry Body mass index (BMI) Body weight Systolic blood pressure Diastolic blood pressure Provider Name and Address Organization Details Last Updated DateTime 4 175.26 cm 63 /min 94 % 94 % 32 kg/m2 23380.5 4 g 110 mm[Hg] 74 mm[Hg] Beronica Strong Coretta [facility] 4 11:39:21 Date Recorded Body height Body mass index (BMI) Body weight Body temperature Oxygen saturation Oxygen saturation in Arterial blood by Pulse oximetry Heart rate Systolic blood pressure Diastolic blood pressure Provider Name and Address Organization Details Last Updated DateTime 175.26 cm 33.4 kg/m2 840614. 63 g 97.3 [degF] 95 % 95 % 89 /min 134 mm[Hg] 86 mm[Hg] Maira Garcia RN [facility] Ku 17:53:30 Social History Question Answer Notes LastModified by Organizat ion Details LastModified Time Tobacco Smoking Status Never Smoker Alton Seo MD [address] [address], [place], [address], [facility] 04/24/2023 14:52:09 Do You Have An Advance Directive? No [id number] Information not available 12/12/2022 What Is Your Level Of Alcohol Consumption? None [id number] Information not available 12/12/2022 Do You Wear A Helmet When Biking? No [email or web address] Information not available 04/24/2023 What Is Your Level Of Caffeine Consumption? Moderate [email or web address] Information not available 04/24/2023 In The 14 Days Before Symptom Onset, Have You Had Close Contact With A Laboratory-confi rmed COVID-19 While That Case Was Ill? No Information not available 04/24/2023 In The 14 Days Before Symptom Onset, Have You Had Close Contact With A Person Who Is Under Investigation For COVID-19 While That Person Was Ill? No [email or web address] Information not available 04/24/2023 What Type Of Diet Are You Following? GLUTENFREE [email or web address] Information not available 04/24/2023 What Is The Highest Grade Or Level Of School You Have Completed Or The Highest Degree You Have Received? [id number] Information not available 04/24/2023 Do You Have An Electrostatic Air Filter? 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 No [email or web address] Information not available 04/24/2023 What Is The Fluoride Status Of Your Home? Unknown [email or web address] Information not available 04/24/2023 Are There Any Guns Present In Your Home? No [email or web address] Information not available 04/24/2023 Do You Have A Humidifier? Yes Information not available 05/11/2024 Do You Use Insect Repellent Routinely? Yes [email or web address] Information not available 04/24/2023 Where Do You Live? 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 No Information not available 05/11/2024 What Was The Date Of Your Most Recent Tobacco Screening? 06/09/2024 [email or web address] Information not available 06/09/2024 Do You Have Any Pets? No [email or web address] Information not available 04/24/2023 What Is Your Relationship Status? [id number] Information not available 12/12/2022 Do You Use Your Seat Belt Or Car Seat Routinely? Yes [email or web address] Information not available 04/24/2023 Do You Have Smoke And Carbon Monoxide Detectors In Your Home? Yes Information not available 04/24/2023 Are You Passively Exposed To Smoke? No [email or web address] Information not available 04/24/2023 Are There Any Smokers In Your House? No [email or web address] Information not available 04/24/2023 Do You Participate In Social Media? No Information not available 04/24/2023 Do You Feel Stressed (tense, Restless, Nervous, Or Anxious, Or Unable To Sleep At Night)? [id number] [email or web address] Information not available 04/24/2023 Do You Use Any Illicit Or Recreational Drugs? No [email or web address] Information not available 04/24/2023 Do You Use Sunscreen Routinely? Yes [email or web address] Information not available 04/24/2023 Has Tobacco Cessation Counseling Been Provided? No [email or web address] Information not available 04/24/2023 Have You Recently Traveled Abroad? No [email or web address] Information not available 04/24/2023 Are You Currently In School? No [email or web address] Information not available 04/24/2023 Do You Have Any Dietary Restrictions? No [email or web address] Information not available 04/24/2023 Do You Or Have You Ever Used Any Other Forms Of Tobacco Or Nicotine? No [email or web address] Information not available 04/24/2023 Sex: Male Functional Status Question Answer Note LastModified by [email or web address] ion Details LastModified Time What is your exercise level? Moderate [id number] Information not available 12/12/2022 Mental Status [...] Not available 05/04 18:28:25 Mother Anxiety disorder [email or web address] Not available 2022 14:52:15 Mother Depressive disorder [email or web address] Not available 2022 14:52:15 Mother Alzheimer's disease [email or web address] Not available 2023 11:35:36 Maternal Grandmother Diabetes mellitus [email or web address] Not available 2022 14:52:15 Maternal Grandmother Malignant tumor of breast [email or web address] Not available 2023 11:35:36 Father Heart disease 43 [email or web address] Not available 2022 14:52:15 Father Substance abuse [email or web address] Not available 2022 14:52:15 Maternal Grandfather Cerebrovascu lar accident [email or web address] Not available 11:35:36 Sister Rheumatoid arthritis [email or web address] Not available 2023 11:35:36 Paternal Grandmother Rheumatoid arthritis [email or web address] Not available 2023 11:35:36 Paternal Grandmother Alzheimer's disease [email or web address] Not available 2023 11:35:36 Medical History Condition Response HEADACHES/MIGRAINES Y ANXIETY DISORDER Y GI PROBLEMS Y OTHER # 1 Y DEPRESSION (INCLUDING POST ) Y ERECTILE DYSFUNCTION Y HIGH CHOLESTEROL / HYPERLIPIDEMIA Y Immunizations Vaccine Type Date Status Note Provider Nam e and Address Organization Details Recorded Time Influenza, split virus, quadrivalent, PF 2 completed Not Available [facility] 12/12/2022 17:46:16 influenza, unspecified formulation 5 completed Not Available [facility] 12/12/2022 17:46:16 Tdap 2 completed Not Available [facility] 12/12/2022 17:46:16 Influenza, split virus, quadrivalent, PF 2 completed Not Available [facility] 12/12/2022 17:46:16 Past Encounters Encounter ID Performer Location Encounter Start Date Encounter Closed Date Diagnosis/Indication Diagnosis SNOMED-CT Code Diagnosis ICD10 Code Diagnosis Note [id number] [facility] [address] [place] [id number] 1 04/18/2022 00:00:00 04/18/2022 16:04:34 [id number] [facility] [address] [place] [address]220 1 05/09/2022 00:00:00 05/09/2022 12:31:30 [id number] [facility] [address] [place] [address] 1 09/20/2022 00:00:00 09/20/2022 17:37:[id number] [address] 1 11/22/2022 00:00:00 11/22/2022 17:10:24 [id number] Alton Seo MD [address] [address] 04/24/2023 14:27:25 04/24/2023 14:56:09 Adult health examination 576132104 Z00.00 Bilateral wrist pain 512 4208923 4326955 M25.531 Vitamin D deficiency 347 62761 E55.9 Obesity 854921755 E66.9 Pain of left wrist 34481 75852 23555 M25.532 Seasonal a llergic rhinitis 310904934 J30.2 Erectile dysfunction 860 506716 F52.21 [id number] Alton Seo MD [address] [address] 1 05/14/2023 12:30:35 05/14/2023 12:48:45 Vitamin D deficiency 47606268 E55.9 Improved Obesity 450337307 E66.9 Pain of left wrist 57039 90854 30155 M25.532 Improved Seasonal a llergic rhinitis 673265184 J30.2 Erectile dysfunction 860 656969 F52.21 Serum crea tinine above reference range 211871614 R79.89 Hyperlipidemia 67227557 E78.5 [id number] MARKELL Barreto [address] [address] 1 03/05/2024 16:28:34 03/05/2024 17:09:46 Serum creatinine above reference range 650234481 R79.89 Will consider Farxiga if microalbum in is elevated. 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.0 [id number] Jeronimo Cardona MD [address] [address] 05/11/2024 10:03:41 05/13/2024 16:41:39 Obstructive sleep apnea syndrome 21902856 G47.33 G47.36 G47.61 [id number] Alton Seo MD [address] [address] 1 05/18/2024 11:35:47 05/18/2024 12:13:16 Vitamin D deficiency 04965601 E55.9 Improved Obesity 990799288 E66.9 Seasonal a llergic rhinitis 390911520 J30.2 Erectile dysfunction 860 589674 F52.21 Hyperlipidemia 50868024 E78.5 Chronic ki dney disease stage 3 435060356 N18.30 Fatigue 12012564 R53.83 Sleep apnea 88680516 G47 .30 Hypertensive disorder 38 188755 I10 Irritable bowel syndrome 55891752 K58.9 Polyarthropathy 37419245 M13.0 Male hypogonadism 258631 06 E29.1 [id number] Jeronimo Cardona MD [address] [address] 06/09/2024 09:34:00 06/09/2024 16:10:59 Obstructive sleep apnea syndrome 23342756 G47.33 G47.36 G47.30 [id number] Alton Seo MD [address] [address] 1 06/22/2024 14:00:09 06/22/2024 14:42:05 Diarrhea 54255675 R19.7 Nausea 709136912 R11.0 Gastroenteritis 02687261 K52.9 [id number] Jeronimo Cardona MD [address] [address] 0 07/01/2024 08:48:44 07/01/2024 10:41:47 Obstructive sleep apnea syndrome 00402467 G47.33 [id number] Jeny Sharma MD [facility] [address] [place] [address] 1 07/08/2024 11:01:35 07/08/2024 11:42:45 Irritable bowel syndrome with diarrhea 333827857 K58.0 [id number] Jeronimo Cardona MD [address] [address] 0 08/17/2024 08:44:34 10/06/2024 14:12:03 Obstructive sleep apnea syndrome 25025883 G47.33 [id number] Jeny Sharma MD [address] [address] 1 09/02/2024 11:35:18 09/02/2024 12:43:01 Irritable bowel syndrome with diarrhea 492249867 K58.0 [id number] Alton Seo MD [address] [address] 1 09/21/2024 17:45:39 09/21/2024 18:02:28 Chronic kidney disease stage 3 144813127 N18.30 Gastroesop hageal reflux disease 187172820 K21.9 Hypertensive disorder 38 274758 I10 Hyperlipidemia 21638436 E78.5 Irritable bowel syndrome with diarrhea 460567028 K58.0 Recurrent herpes simplex 91169011 B00.9 [id number] Alton Seo MD [address] [address] 1 10/01/2024 12:30:33 10/01/2024 13:54:26 Nausea 213206577 R11.0 Polyarthropathy 79773834 M13.0 Fatigue 88121695 R53.83 Viral gastritis 81651180 7 K29.70 Health Concerns Section Related Observation LastModified by Organization Detai ls LastModified Time None Recorded Concern Status LastModified by Organization Details LastModified Time None Recorded Advance Directives Directive N: Payers Encounter Date Sequence Insurance Name Policy Number Policy Gonzalez Covered Member ID Gonzalez Member ID Guarantor Name 07/08/2024 1 [place] [id number] Lizzeth D Zipfel [id number] Lizzeth D Zipfel 08/17/2024 1 [place] [id number] Lizzeth D Zipfel [id number] Lizzeth D Zipfel 09/02/2024 1 [place] [id number] Lizzeth D Zipfel [id number] Lizzeth D Zipfel 09/21/2024 1 [place] [id number] Lizzeth D Zipfel [id number] Lizzeth D Zipfel 10/01/2024 1 [place] [id number] Lizzeth D Zipfel [id number] Lizzeth D Zipfel Notes Date Note Type Note Provider Name and Address Organization Details Recorded Time 07/08/2024 text/html LIZZETH WAS SEEN I N THE OFFICE TODAY FOR EVALUATION . PT HAS IBS-D . PT REPORTS SPORADIC DIARRHEA GRADE 6/7 ON TE BSS. HE REPORTS CRAMPING . PT HAS DEPRESSION /ANXIETY FOR WHICH HE TAKES WELLBUTRIN /CELEXA . Jeny Sharma MD [address] [place] [address], [phone], [facility] [employer] 07/08/2024 12:04:29 08/17/2024 text/html Primary care/Ref erring provider: Alton Seo MD During the [facility] home sleep study on 04/30/24, AHI = 2. Oxygen however desaturated to <90% for 203.3 minutes. During the [facility] diagnostic sleep study on 06/03/24, sleep onset = 20.5 minutes, REM onset = 121 minutes, AHI = 8, supine AHI = 9, REM AHI = 25, PLMI = 0.0. During the [facility] titration sleep study on 06/17/24, sleep onset = 37 minutes, REM onset = 112.5 minutes, PLMI = 0.0. At home since 07/15/24, the patient uses a [employer] AirSense 11 autoset unit with heated humidification. The patient does not need the ramp to start low and go up slowly on the pressure. There is no xerostomia in a.m. There is no hose/mask condensation with water. The patient wears a [employer] large Yanique nasal mask without chin strap. There is no claustrophobia, no nostril/nose bridge irritation, no facial rash, no facial numbness, no nosebleeding. The patient feels more refreshed upon waking and daytime alertness is improved. Energy levels are sustained for the remainder of the day. At home, the patient sleeps from 12 am to 7 am and wakes up with an alarm. Snoring: heavy, since .Snorting: noChoking: yesCoughing: yesGasping: yesGagging: noSighing: yesWitnessed apnea: yesTwitching or jerking of leg(s), arm(s), body, head: yesTeeth grinding: yesTeeth clenching: yesSleeptalking: yesSleepwalking: noSleep crying: yesBedwetting: yesTongue/lip/gum/marianela k biting: yesSleeping with open mouth: yesSleep paralysis: noHypnagogic hallucinations: noHypnopompic hallucinations: noVivid dreams: yesDifficulty with sleep onset: noDifficulty with sleep maintenance: yesSleep interruptions: nocturia 5 nights per weekPatient wakes up with: fatigue, xerostomia, sore throat, hoarse voice, cognitive impairment, mobility impairment, dexterity impairmentDaytime cataplexy: noMorning hypersomnolence: yesAfternoon hypersomnolence: yesCaffeine sources in diet: coffee 1/2 cup per day, soda 36 oz per day, chocolate 1/3 candy bar per day Associated medical and psychiatric conditions:Congestive heart failure: noCoronary artery disease: noMyocardial infarction: noHypertension: yesStroke: noBronchial asthma: noChronic obstructive pulmonary disease: noDepression: yesBipolar disorder: noAnxiety: yesPanic disorder: noPosttraumatic stress disorder: noAttention deficit and hyperactivity disorder: noObsessive Compulsive disorder: noSchizophrenia: noSchizoaffective disorder: noPersonality disorder: noChronic analgesic use: noChronic sedative/hypnotic use: no EPWORTH SLEEPINESS SCALE (ESS) CHANCE OF DOZING SCORE0 = would never doze1 = slight chance of dozing2 = moderate chance of dozing3 = high chance of dozing SITUATION AND CHANCE OF DOZINGSitting and reading - 1Watching television - 1Sitting inactive in a public place (e.g. a theater or meeting) - 1As a passenger in a car for an hour without a break - 0Lying down to rest in the afternoon when circumstances permit - 3Sitting and talking to someone - 0Sitting quietly after lunch without alcohol - 1In a car, while stopped for a few minutes in the traffic - 0TOTAL SCORE 7Subjectively, patient has a slight chance of dozing. Jeronimo Cardona MD [address] [facility], [facility] [address], [place], [address], [facility] 08/17/2024 09:15:03 09/02/2024 text/html LIZZETH WAS SEEN I N THE OFFICE TODAY FOR A F/U. PT HAS IBS-D . DICYCLOMINE WAS RXED . PT HAS NOT TAKEN IT . PT REPORTS N/V/D IN AND RECENTLY. HE THINKS HE HAS THE STOMACH FLU. PT REQUESTED AN EGD /COLON FOR W/U. HE DENIES DM-2 EVEN THOUGH HIS CHART SAYS OTHERWISE . HE HAS OTHER ENDOCRINE ISSUES IN ADDITION TO CKD-3. Jeny Sharma MD [address] [facility], [address], [place], [address], [facility] Wanted 09/02/2024 12:52:25 09/21/2024 text/html ACV: Pt has some questions about his last labs. Pt has been f/u with GI and got more testing with her. He will be seeing another specialist at [facility] for more testing. Denies any problem with meds. Denies any other concern. Pt is f/u with Psych for his mood and is on meds by them. Doing well with it. Alton Seo MD [address], [facility] [address], [place], [address], [facility] 09/21/2024 18:04:41 10/01/2024 text/html Telephone visit. ACV. C/o nausea, feeling fatigued since he woke up today morning. No issues until yesterday night. Denies any unusual outside food intake/known sick contact. No fever/chills/cough/con gestion/c/d/urinary symptoms. Pt has chronic nausea and he is f/u with GI for it and they did lot of testing and it was all good. So his GI recommended him to see another specialist for any autoimmune conditions. Pt has chronic joints pain and ? Raynaud's. Never seen any specialist for it. Alton Seo MD [address], [place], [address], [facility] [employer] 10/01/2024 14:30:51
--- OUTSIDE RECORDS SUMMARY | 2024-10-24 12:28 | XMS_ITS | Continuity of Care Document ---
Author Organization ID - [facility], [facility] General Surgery Address [address] [facility] [place] [address] Care Team Providers Care Specimen Technician Name Role Phone ALTON SEO Primary Care Provider Assessment No assessment recorded. Plan of Treatment Reminders Order Date Submit Date Provider Last Modified By Organization Details Last Modified Time Details Appointments Follow Up 15 2024 09:30A M Alton Seo MD Not available Not available Not available Any 15 2024 07:30A M Jeronimo Cardona MD Not available Not available Not available Lab H pylori Ag, stool 2023 024 [facility] (Lab), [address] [place], [address], 10/21/2024 13:35:03 Referral None recorded . Procedures None recorded . Surgeries None recorded . Imaging None recorded . Medication Orders None recorded . Patient TargetsNo targets recorded. Patient Instructions Encounter Date Encounter Id Patient Instructions Last Modified By Organization Details Last Modified Time 09/02/2024 [id number] PT WITH IBS-D . TRY DICYCLOMINE . WILL STOOL AG FOR H. PYLORI . F/U IN 2 WEEKS . [email or web address] Not available 09/02/2024 12:52:00 Reason for Referral None Reported. Results Created Date Observation Date Name Description Value Unit Range Abnormal Flag Note LastModifiedBy Organization Detail LastModifiedTime 08/02/20 24 08/01/2024 CT, abdom en + pelvi s, w/ contr ast No observ ation record ed. [email or web address] [facility] [address], [place], [address], 09/21/2024 17:54:41 10/16/19 25 10/16/2024 XR, shoul pavithra, 2 or more view No observ ation record ed. [address], [place], [address], 10/20/2024 10:48:08 10/16/19 25 10/16/2024 XR, hand, 3 or more view No observ ation record ed. [address] [facility] [address], [place], [address], 10/20/2024 10:49:45 10/16/19 25 10/16/2024 XR, cervi cuca spine , 4 or 5 view No observ ation record ed. [address], [place], [address], 10/20/2024 10:50:27 10/17/19 25 10/16/2024 XR, shoul pavithra, 2 or more view No observ ation record ed. [address], [place], [address], 10/20/2024 10:53:53 10/17/19 25 10/17/2024 CT, abdom en + pelvi s, w/ contr ast No observ ation record ed. [address], [place], [address], 10/20/2024 10:54:31 Result Notes None recorded. Problems Name Problem SNOMED Code Status Onset Date Resolution Date Notes Provider Name and Address Organization Details Recorded Time Lateral epicondylitis 679214484 Active Not Available [facility] 3 17:44:47 Mixed anxiety and depressive disorder 475878440 Active 2017 Not Available [facility] 3 17:44:47 Gastroesophag eal reflux disease 013729720 Active Not Available [facility] 3 17:44:47 Raynaud's phenomenon 582132315 Active Not Available [facility] 3 17:44:47 Vitamin D deficiency 30385675 Active 2017 Not Available [facility] 3 17:44:47 Seasonal allergic rhinitis 620465115 Active Not Available [facility] 3 17:44:47 Recurrent herpes simplex 03765257 Active 2017 Not Available [facility] 3 17:44:47 Obesity 026908473 Active 2017 Not Available [facility] 3 17:44:48 Hyperlipidemi a 23972139 Active 2017 Not Available [facility] 3 17:44:48 Carpal tunnel syndrome 92062437 Active Not Available [facility] 3 17:44:48 Verruca plantaris 31571337 Active 2019 Not Available [facility] 3 17:44:48 Bilateral hearing loss 20245531 Active 2022 Not Available [facility] 3 17:44:48 Erectile dysfunction 165530044 Active 2022 Alton Seo MD [address] [facility], [place], [address] , [employer] [facility] [employer] 3 14:46:49 Chronic kidney disease stage 3 865723997 Active 2023 Alton Seo MD [address], [place], [address] , [employer] [facility] [employer] 4 10:45:44 Hypertensive disorder 31153677 Active 2023 Alton Seo MD [address], [place], [address] , [employer] [facility] [employer] 4 10:51:54 Irritable bowel syndrome 71762453 Active 2023 Alton Seo MD [address], [place], [address] , [employer] [facility] [employer] 4 10:53:57 Polyarthropat hy 83188177 Active 2023 Alton Seo MD [address], [place], [address] , [employer] [facility] 4 10:54:48 Obstructive sleep apnea syndrome 23503578 Active 2023 Jeronimo Cardona MD [address], [place], [address] , [employer] [facility] 4 10:33:02 Male hypogonadism 06475555 Active 2023 Alton Seo MD [address], [place], [address] , [employer] [facility] 4 11:44:51 Gastroenterit is 70349436 Active 2023 Alton Seo MD [address], [place], [address] , [employer] [facility] 4 14:28:45 Irritable bowel syndrome with diarrhea 581947094 Active 2023 Jeny Sharma MD [address], [place], [address] , [employer] [facility] 4 12:02:46 Nausea 943917131 Active 2023 Alton Seo MD [address], [place], [address] , [employer] [facility] 4 14:20:36 Fatigue 33300753 Active 2023 Alton Seo MD [address], [place], [address] , [employer] [facility] 4 14:28:58 Viral gastritis 076619015 Active 2023 Alton Seo MD [address], [place], [address] , [employer] [facility] 4 14:29:10 Notes:Medical History: Depre ssion/Anxiety Left hearing loss Left tinnitus Rhinitis with postnasal drip Bruxism Obesity with mild OSAHS, AHI = 8, 06/03/24, on CPAP c/o IVRC Treatment-emergent central apneas Hypertension Hyperlipidemia T2DM [place] Cholelithiasis CKD ED Recurrent HSV infection Vit D deficiency Right CTS Procedure History: EGD 2015 Colonoscopy with polypectomies 2020 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 Procedures Surgical History Date Name Laterality Status Provider Name and Address Organization Details Recorded Time colonoscopy completed Ami Michael MA [facility] 06/09/2024 09:49:41 Endoscopy completed Ami Michael MA [facility] [employer] [facility] 06/09/2024 09:49:53 Imaging Results None recorded. Procedure [...] t Available Vitals Date Recorded Body height Heart rate Oxygen saturation Oxygen saturation in Arterial blood by Pulse oximetry Body mass index (BMI) Body weight Systolic blood pressure Diastolic blood pressure Provider Name and Address Organization Details Last Updated DateTime 4 175.26 cm 63 /min 94 % 94 % 32 kg/m2 19138.5 4 g 110 mm[Hg] 74 mm[Hg] WARD [facility] [employer] 4 11:39:21 Social History Question Answer Notes LastModified by Organizat ion Details LastModified Time Tobacco Smoking Status Never Smoker Alton Seo MD [address] [address], [place], [address], [employer] 04/24/2023 14:52:09 Do You Have An Advance Directive? No [id number] Information not available 12/12/2022 What Is Your Level Of Alcohol Consumption? None [id number] Information not available 12/12/2022 Do You Wear A Helmet When Biking? No [email or web address] Information not available 04/24/2023 What Is Your Level Of Caffeine Consumption? Moderate [email or web address] Information not available 04/24/2023 In The 14 Days Before Symptom Onset, Have You Had Close Contact With A Laboratory-confi rmed COVID-19 While That Case Was Ill? No [email or web address] Information not available 04/24/2023 In The 14 Days Before Symptom Onset, Have You Had Close Contact With A Person Who Is Under Investigation For COVID-19 While That Person Was Ill? No [email or web address] Information not available 04/24/2023 What Type Of Diet Are You Following? GLUTENFREE [email or web address] Information not available 04/24/2023 What Is The Highest Grade Or Level Of School You Have Completed Or The Highest Degree You Have Received? OS16056-5 [email or web address] Information not available 04/24/2023 Do You Have An Electrostatic Air Filter? 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 No [email or web address] Information not available 04/24/2023 What Is The Fluoride Status Of Your Home? Unknown [email or web address] Information not available 04/24/2023 Are There Any Guns Present In Your Home? No [email or web address] Information not available 04/24/2023 Do You Have A Humidifier? Yes Information not available 05/11/2024 Do You Use Insect Repellent Routinely? Yes [email or web address] Information not available 04/24/2023 Where Do You Live? SingleLevelHouse Information not available 04/24/2023 Do You Have A Medical Power Of Customs Broker? No [email or web address] Information not available 04/24/2023 Do You Have Moisture Problems In Your Home? No Information not available 05/11/2024 What Was The Date Of Your Most Recent Tobacco Screening? 06/09/2024 [email or web address] Information not available 06/09/2024 Do You Have Any Pets? No [email or web address] Information not available 04/24/2023 What Is Your Relationship Status? [id number] Information not available 12/12/2022 Do You Use Your Seat Belt Or Car Seat Routinely? Yes Information not available 04/24/2023 Do You Have Smoke And Carbon Monoxide Detectors In Your Home? Yes [email or web address] Information not available 04/24/2023 Are You Passively Exposed To Smoke? No [email or web address] Information not available 04/24/2023 Are There Any Smokers In Your House? No [email or web address] Information not available 04/24/2023 Do You Participate In Social Media? No [email or web address] Information not available 04/24/2023 Do You Feel Stressed (tense, Restless, Nervous, Or Anxious, Or Unable To Sleep At Night)? [id number] Information not available 04/24/2023 Do You Use Any Illicit Or Recreational Drugs? No Information not available 04/24/2023 Do You Use Sunscreen Routinely? Yes [email or web address] Information not available 04/24/2023 Has Tobacco Cessation Counseling Been Provided? No [email or web address] Information not available 04/24/2023 Have You Recently Traveled Abroad? No [email or web address] Information not available 04/24/2023 Are You Currently In School? No [email or web address] Information not available 04/24/2023 Do You Have Any Dietary Restrictions? No [email or web address] Information not available 04/24/2023 Do You Or Have You Ever Used Any Other Forms Of Tobacco Or Nicotine? No Information not available 04/24/2023 Sex: Male Functional Status Question Answer Note LastModified by Organizat ion Details LastModified Time What is your exercise level? Moderate [id number] Information not available 12/12/2022 Mental Status [...] Not available 05/04 18:28:25 Mother Anxiety disorder [email or web address] Not available 2022 14:52:15 Mother Depressive disorder Not available 2022 14:52:15 Mother Alzheimer's disease [email or web address] Not available 2023 11:35:36 Maternal Grandmother Diabetes mellitus [email or web address] Not available 2022 14:52:15 Maternal Grandmother Malignant tumor of breast [email or web address] Not available 2023 11:35:36 Father Heart disease 43 [email or web address] Not available 2022 14:52:15 Father Substance abuse [email or web address] Not available 2022 14:52:15 Maternal Grandfather Cerebrovascu [...] virus, quadrivalent, PF 2 completed Not Available [facility] 12/12/2022 17:46:16 influenza, unspecified formulation 5 completed Not Available [facility] 12/12/2022 17:46:16 Tdap 2 completed Not Available [facility] 12/12/2022 17:46:16 Influenza, split virus, quadrivalent, PF 2 completed Not Available [facility] 12/12/2022 17:46:16 Past Encounters Encounter ID Performer Location Encounter Start Date Encounter Closed Date Diagnosis/Indication Diagnosis SNOMED-CT Code Diagnosis ICD10 Code Diagnosis Note [id number] Jeronimo Cardona MD [facility] [facility] [place] [address] [place] [address] 0 08/17/2024 08:44:34 10/06/2024 14:12:03 Obstructive sleep apnea syndrome 38272981 G47.33 [id number] Jeny Sharma MD [facility] [address] [place] [address] 1 09/02/2024 11:35:18 09/02/2024 12:43:01 Irritable bowel syndrome with diarrhea 851118995 K58.0 Health Concerns Section Related Observation LastModified by Organization Detai ls LastModified Time None Recorded Concern Status LastModified by Organization Details LastModified Time None Recorded Payers Encounter Date Sequence Insurance Name Policy Number Policy Gonzalez Covered Member ID Gonzalez Member ID Guarantor Name 09/02/2024 1 [facility]-ID: (PPO) [id number] Zeke Sweet Zipfel [id number] Zeke Sweet Zipfel Notes Date Note Type Note Provider Name and Address Organization Details Recorded Time 09/02/2024 text/html ZEKE WAS SEEN I N THE OFFICE TODAY [...] ADDITION TO CKD-3. Jeny Sharma MD [address] [facility] [facility] [address], [place], [address], [place] [facility] [employer] [facility] 09/02/2024 12:52:25
--- OUTSIDE RECORDS SUMMARY | 2024-10-24 12:28 | XMS_ITS | Continuity of Care Document ---
Author Organization ID - [facility], [facility] Marcelo Address [address] [place] [address] Care Team Providers Care Tire Adjuster Name Role Phone ALTON SEO Primary Care Provider [phone] Assessment Encounter Date Assessment Date Assessment LastModified by Organization Details LastModified Time 09/21/2024 09/21/2024 D/w pt about his findings, recent labs and further plan of care. Answered all questions for pt. Pt doesn't have any DM in the past. Pt is on Farxiga for his CKD. Cont f/u with specialist as per schedule. F/u as directed. [email or web address] Not available 09/21/2024 18:04:22 Plan of Treatment Reminders Order Date Submit Date Provider Last Modified By Organization Details Last Modified Time Details Appointments Follow Up 15 2024 09:30A Braden Seo MD Not available Not available Not available Any 15 2024 07:30A M Jeronimo Cardona MD Not available Not available Not available Lab None recorded. Referral None recorded. Procedures None recorded. Surgeries None recorded. Imaging None recorded. Medication Orders valacyclo vir 500 mg tablet 2023 024 [id number], [address] [facility], [place], [place], [id number], 09/21/2024 18:00:11 pantopraz ole 20 mg tablet,de layed release 2023 024 [id number], [address] , [place], [place], [id number], 09/21/2024 18:00:09 rosuvasta tin 10 mg tablet 2023 024 [facility], [address], [place], [place], [id number], 09/21/2024 18:00:10 Patient TargetsNo targets recorded. Patient InstructionsNo instructions recorded. Reason for Referral None Reported. Results Created Date Observation Date Name Description Value Unit Range Abnormal Flag Note LastModifiedBy Organization Detail LastModifiedTime 10/16/19 25 10/16/2024 XR, shoul pavithra, 2 or more view No observ ation record ed. [address], [place], [address], 10/20/2024 10:48:08 10/16/19 25 10/16/2024 XR, hand, 3 or more view No observ ation record ed. [address], [place], [address], 10/20/2024 10:49:45 10/16/19 25 10/16/2024 XR, cervi cuca spine , 4 or 5 view No observ ation record ed. [address] [facility] [address], [place], [address], 10/20/2024 10:50:27 10/17/19 25 10/16/2024 XR, shoul pavithra, 2 or more view No observ ation record ed. [address] [facility] [address], [place], [address], 10/20/2024 10:53:53 10/17/19 25 10/17/2024 CT, abdom en + pelvi s, w/ contr ast No observ ation record ed. [place] [id number], [place], [address], 10/20/2024 10:54:31 Result Notes None recorded. Problems Name Problem SNOMED Code Status Onset Date Resolution Date Notes Provider Name and Address Organization Details Recorded Time Lateral epicondylitis 482402224 Active Not Available [facility] 3 17:44:47 Mixed anxiety and depressive disorder 687083428 Active 2017 Not Available [facility] 3 17:44:47 Gastroesophag eal reflux disease 032760246 Active Not Available [facility] 3 17:44:47 Raynaud's phenomenon 519960027 Active Not Available [facility] 3 17:44:47 Vitamin D deficiency 25015508 Active 2017 Not Available [facility] 3 17:44:47 Seasonal allergic rhinitis 682220316 Active Not Available [facility] 3 17:44:47 Recurrent herpes simplex 74743609 Active 2017 Not Available [facility] 3 17:44:47 Obesity 486722552 Active 2017 Not Available [facility] 3 17:44:48 Hyperlipidemi a 68839868 Active 2017 Not Available [facility] 3 17:44:48 Carpal tunnel syndrome 99198737 Active Not Available [facility] 3 17:44:48 Verruca plantaris 66736518 Active 2019 Not Available [facility] 3 17:44:48 Bilateral hearing loss 93691481 Active 2022 Not Available [facility] 3 17:44:48 Erectile dysfunction 302060402 Active 2022 Alton Seo MD [address], [place], [address] , [employer] 3 14:46:49 Chronic kidney disease stage 3 870941020 Active 2023 Alton Seo MD [address], [place], [address] , [employer] [facility] 4 10:45:44 Hypertensive disorder 43548995 Active 2023 Alton Seo MD [address], [place], [address] , [place] [facility] 4 10:51:54 Irritable bowel syndrome 37168065 Active 2023 Alton Seo MD [address], [place], [address] , [place] [facility] 4 10:53:57 Polyarthropat hy 43970852 Active 2023 Alton Seo MD [address], [place], [address] , [place] [facility] 4 10:54:48 Obstructive sleep apnea syndrome 34037380 Active 2023 Jeornimo Cardona MD [address], [place], [address] , [place] [facility] 4 10:33:02 Male hypogonadism 15637283 Active 2023 Alton Seo MD [address], [place], [address] , [place] [facility] 4 11:44:51 Gastroenterit is 20910534 Active 2023 Alton Seo MD [address], [place], [address] , [place] [facility] 4 14:28:45 Irritable bowel syndrome with diarrhea 655696307 Active 2023 Jeny Sharma MD [address], [place], [address] , [place] [facility] 4 12:02:46 Nausea 930117549 Active 2023 Alton Seo MD [address], [place], [address] , [place] [facility] 4 14:20:36 Fatigue 57966710 Active 2023 Alton Seo MD [address], [place], [address] , [facility] [employer] [facility] 14:28:58 Viral gastritis 664408813 Active 2023 Alton Seo MD [address], [place], [address] , 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 Procedures Surgical History Date Name Laterality Status Provider Name and Address Organization Details Recorded Time colonoscopy completed Ami Michael MA [facility] [employer] [facility] 06/09/2024 09:49:41 Endoscopy completed Ami Michael MA [facility] [employer] [facility] 06/09/2024 09:49:53 Imaging Results None recorded. Procedure [...] Details Last Updated DateTime 4 175.26 cm 33.4 kg/m2 415528. 63 g 97.3 [degF] 95 % 95 % 89 /min 134 mm[Hg] 86 mm[Hg] Maira GarciaRN [place] [facility] 4 17:53:30 Social History Question Answer Notes LastModified by Organizat ion Details LastModified Time Tobacco Smoking Status Never Smoker Alton Seo MD [address], [place], [address], [facility] [email or web address] [facility] 04/24/2023 14:52:09 Do You Have An Advance Directive? No [id number] Information not available 12/12/2022 What Is Your Level Of Alcohol Consumption? None [id number] Information not available 12/12/2022 Do You Wear A Helmet When Biking? No [email or web address] Information not available 04/24/2023 What Is Your Level Of Caffeine Consumption? Moderate [email or web address] Information not available 04/24/2023 In The 14 Days Before Symptom Onset, Have You Had Close Contact With A Laboratory-confi rmed COVID-19 While That Case Was Ill? No [email or web address] Information not available 04/24/2023 In The 14 Days Before Symptom Onset, Have You Had Close Contact With A Person Who Is Under Investigation For COVID-19 While That Person Was Ill? No Information not available 04/24/2023 What Type Of Diet Are You Following? GLUTENFREE [email or web address] Information not available 04/24/2023 What Is The Highest Grade Or Level Of School You Have Completed Or The Highest Degree You Have Received? [id number] Information not available 04/24/2023 Do You Have An Electrostatic Air Filter? 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 No [email or web address] Information not available 04/24/2023 What Is The Fluoride Status Of Your Home? Unknown Information not available 04/24/2023 Are There Any Guns Present In Your Home? No [email or web address] Information not available 04/24/2023 Do You Have A Humidifier? Yes Information not available 05/11/2024 Do You Use Insect Repellent Routinely? Yes [email or web address] Information not available 04/24/2023 Where Do You Live? SingleLevelHouse [email or web address] Information not available 04/24/2023 Do You Have A Medical Power Of Interior Horticulturist? No [email or web address] Information not available 04/24/2023 Do You Have Moisture Problems In Your Home? No Information not available 05/11/2024 What Was The Date Of Your Most Recent Tobacco Screening? 06/09/2024 [email or web address] Information not available 06/09/2024 Do You Have Any Pets? No [email or web address] Information not available 04/24/2023 What Is Your Relationship Status? [id number] Information not available 12/12/2022 Do You Use Your Seat Belt Or Car Seat Routinely? Yes [email or web address] Information not available 04/24/2023 Do You Have Smoke And Carbon Monoxide Detectors In Your Home? Yes Information not available 04/24/2023 Are You Passively Exposed To Smoke? No [email or web address] Information not available 04/24/2023 Are There Any Smokers In Your House? No [email or web address] Information not available 04/24/2023 Do You Participate In Social [employer]? No [email or web address] Information not available 04/24/2023 Do You Feel Stressed (tense, Restless, Nervous, Or Anxious, Or Unable To Sleep At Night)? [id number] [email or web address] Information not available 04/24/2023 Do You Use Any Illicit Or Recreational Drugs? No [email or web address] Information not available 04/24/2023 Do You Use Sunscreen Routinely? Yes [email or web address] Information not available 04/24/2023 Has Tobacco Cessation Counseling Been Provided? No [email or web address] Information not available 04/24/2023 Have You Recently Traveled Abroad? No Information not available 04/24/2023 Are You Currently In School? No [email or web address] Information not available 04/24/2023 Do You Have Any Dietary Restrictions? No Information not available 04/24/2023 Do You Or Have You Ever Used Any Other Forms Of Tobacco Or Nicotine? No Information not available 04/24/2023 Sex: Male Functional Status Question Answer Note LastModified by Organizat ion Details LastModified Time What is your exercise level? Moderate [id number] Information not available 12/12/2022 Mental Status [...] Not available 05/04 18:28:25 Mother Anxiety disorder [email or web address] Not available 2022 14:52:15 Mother Depressive disorder Not available 2022 14:52:15 Mother Alzheimer's disease [email or web address] Not available 2023 11:35:36 Maternal Grandmother Diabetes mellitus [email or web address] Not available 2022 14:52:15 Maternal Grandmother Malignant tumor of breast [email or web address] Not available 2023 11:35:36 Father Heart disease 43 [email or web address] Not available 2022 14:52:15 Father Substance abuse Not available 2022 14:52:15 Maternal Grandfather Cerebrovascu [...] virus, quadrivalent, PF 2 completed Not Available Replaced by [facility] 12/12/2022 17:46:16 influenza, unspecified formulation 5 completed Not Available [facility] 12/12/2022 17:46:16 Tdap 2 completed Not Available Replaced by [facility] 12/12/2022 17:46:16 Influenza, split virus, quadrivalent, PF 2 completed Not Available Replaced by [facility] 12/12/2022 17:46:16 Past Encounters Encounter ID Performer Location Encounter Start Date Encounter Closed Date Diagnosis/Indication Diagnosis SNOMED-CT Code Diagnosis ICD10 Code Diagnosis Note [id number] Jeny Sharma MD [facility] General Surgery [address] [place] [address] 09/02/2024 11:35:18 09/02/2024 12:43:01 Irritable bowel syndrome with diarrhea 641351459 K58.0 [id number] Alton Seo MD [facility] [address] [place] [address] 09/21/2024 17:45:39 09/21/2024 18:02:28 Chronic kidney disease stage 3 836837164 N18.30 Gastroesop hageal reflux disease 994705431 K21.9 Hypertensive disorder 38 268683 I10 Hyperlipidemia 27969376 E78.5 Irritable bowel syndrome with diarrhea 643664676 K58.0 Recurrent herpes simplex 58304596 B00.9 Health Concerns Section Related Observation LastModified by Organization Detai ls LastModified Time None Recorded Concern Status LastModified by Organization Details LastModified Time None Recorded Payers Encounter Date Sequence Insurance Name Policy Number Policy Gonzalez Covered Member ID Gonzalez Member ID Guarantor Name 09/21/2024 1 [facility]: (PPO) [id number] Zeke Sandoval [id number] Zeke Sandoval Notes Date Note Type Note Provider Name and Address Organization Details Recorded Time 09/21/2024 text/html ACV: Pt has some questions about his last labs. Pt has been f/u with GI and got more testing with her. He will be seeing another specialist at [facility] for more testing. Denies any problem with meds. Denies any other concern. Pt is f/u with Psych for his mood and is on meds by them. Doing well with it. Alton Seo MD [address] [facility], [place], [address], [facility] [employer] 09/21/2024 18:04:41
--- OUTSIDE RECORDS SUMMARY | 2024-10-24 12:29 | XMS_ITS | Encounter Summary ---
Author Organization [facility] Address [address] [facility] [place] [address] Care Team Providers Care Financial Services Education Consultant Name Role Phone Alton Seo MD Primary Care Provider [phone] Reason for Visit * Reason Comments Establish Care Pt in to establish c are Encounter Details Date Type Department Care Team (Late st Contact Info) Description 10/15/2024 10:00 AM BACK END DEVELOPER Office Visit [facility] - Rheumatology [address] [facility] [address], [address] [place] [address] Johnson Jhaveri MD [address] [facility] [address] [place] [address] Polyarthralgia (Primary Dx); Raynaud's syndrome without gangrene; Cervicalgia; Encounter for long-term (current) use of high-risk medication; Renal insufficiency Social History Tobacco Use Types Packs/Day Years Used Date Smoking Tobacco: Never Smokeless Tobacco: Never Tobacco Cessation:Counseling Given: Not Answered Sex and Gender Information Value Date Recorded Sex Assigned at Not on file Gender Identity Not on file Sexual Orientation Not on file documented as of this encounter Last Filed Vital Signs Vital Sign Reading Time Taken Comments Blood Pressure 128/78 10/15/2024 10:12 AM BACK END DEVELOPER Pulse 75 10/15/2024 10:12 AM BACK END DEVELOPER Temperature 36.5 ??C (97.7 ??F) 10/15/2024 1 0:12 AM BACK END DEVELOPER Respiratory Rate 16 10/15/2024 10:1 2 AM BACK END DEVELOPER Oxygen Saturation 93% 10/15/2024 10: 12 AM BACK END DEVELOPER Inhaled Oxygen Concentration - - Weight 101.1 kg (222 lb 12.8 oz) 2024 10:12 AM BACK END DEVELOPER Height - - Body Mass Index - - documented in this encounter Patient Instructions * Patient Instructions* Johnson Jhaveri MD - 10/15/2024 10:58 AM BACK END DEVELOPER X-rays today Labs at [facility] Please read information on osteoarthritis, rheumatoid arthritis, lupus, hydroxychloroquine, azathioprine, leflunomide Please do daily stretching and try to keep ideal body weight. END DEVELOPER documented in this encounter Progress Notes * Johnson Jhaveri MD - 10/15/2024 10:32 AM CST Follow-up Rheumatology Office Note Date of Visit: October 15, 2024 Patient's Primary Care Physician: Alton Seo MD Referring physician: PCP Chief Complaint/History of Present Illness Subjective Zeke Sandoval is a 44 year old male here sent by PCP regarding joint pains. He has joint pains for 20 years. Mainly in the knees shoulders neck feet, history of plantar fasciitis. He takes Tylenol as needed. He has to take nonsteroidals for a long time bed few years ago he was diagnosed as chronic renal insufficiency and has not taken any nonsteroidals. He has some swelling of the lower extremity, discoloration the left ankle for 5 years. He was recently told he has only 1 kidney. Denies any redness or warmth of any joints, morning stiffness for 30 minutes Family history is positive for a great aunt with lupus and sister with some kind of autoimmune disease. 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 No cigarettes or alcohol No history of DVT pulmonary embolism or stroke History of bilateral tennis elbow worse with activity for which he has had physical therapy stretching. He takes Tylenol for it He has had steroid injection in the left knee and left shoulder in the past for pain. Previous Report(s) Reviewed: I reviewed patient's past medical history, past surgical history,family history,allergies, social history, OBGYN history in females in [facility]. They are noted as follows. Past Medical History: Diagnosis Date Acid reflux Anxiety disorder Arthritis in the joints Depression IBS (irritable bowel syndrome) Past Surgical History: Procedure Laterality Date COLONOSCOPY 10/2019 over 4-5 years ago ENDOSCOPY, UPPER over 10 years ago Family History Problem Relation Name Age of Onset Arthritis - Osteo Mother Arthritis - Rheumatoid Maternal Grandmother Arthritis - Rheumatoid half-sister Lupus Maternal Aunt No Known Allergies Social History Socioeconomic History Marital status: Spouse name: Not on file Number of children: Not on file Years of education: Not on file Highest education level: Not on file Occupational History Not on file Tobacco Use Smoking status: Never Smokeless tobacco: Never Vaping Use Vaping status: Never Used Substance and Sexual Activity Alcohol use: Not on file Drug use: Not Currently Sexual activity: Yes Partners: Female Other Topics Concern Not on file Social History Narrative Not on file Social Determinants of Health Financial Resource Strain: Not on file Food Insecurity: Not on file Transportation Needs: Not on file Stress: Not on file Housing Stability: Not on file Review of Systems Positive for joint pain swelling Raynaud's phenomena. Negative for fever over 101 loss of vision deafness fatigue dry eyes dry mouth multiple mucosal ulcers, malar rash seizures stroke anxiety depression, blood in the urine blood in the stool dysphagia,diabetes thyroid parathyroid problems shortness of breath hemoptysis, neck pain low back pain muscle weakness Objective Objective: BP 128/78 Pulse 75 Temp 97.7 ??F (36.5 ??C) Resp 16 Wt 101.1 kg (222 lb 12.8 oz) SpO2 93% GENERAL: no distress, overweight HEENT: No obvious abnormality or lesion SKIN: No rash or vasculitic lesion visible NEURO: nonfocal examination PSYCH: alert and oriented into 3 EXTREMITIES: no edema clubbing or cyanosis MUSCULOSKELETAL: Mild tenderness of the small joints of the hands and ankles and the feet without any synovitis. Slight tenderness of the spine without point tenderness Lab Review No results for input(s): WBC , HEMOGLOBIN , HEMATOCRIT , PLATELET , NEUTROPHILS , BANDS , LYMPH , MYELOCYTES , EOSINOPHILS in the last 15725 hours. No results for input(s): WBC , HEMOGLOBIN , HGB , HEMATOCRIT , HCT , PLATELET , PLTCOUNT inthe last 04307 hours. No results found for: NEUTROPHILAB No results for input(s): SODIUM , POTASSIUM , CHLORIDE , CO2 , BUN , CREATININE , CALCIUM , ALBUMIN , PROTEIN , [id number] , IKE4ZAOP , ALT , AST , GFR , GLUCOSE , [id number] in the last 76344 hours. No results for input(s): SODIUM , POTASSIUM , CHLORIDE , CO2 , BUN , CREATININE , EGFR , EGFRAFRIC , GLUCOSE , CALCIUM in the last 99834 hours. Previous workup: Creatinine mildly elevated CBC rheumatoid factor RONALD were negative/normal Assessment Assessment: Polyarthralgia - Plan: ANGIOTENSIN CONVERTING ENZYME BLOOD, CK BLOOD, C-REACTIVE PROTEIN, CYCLIC CITRULLINATED PEPTIDE(CCP) AB IGG, ERYTHROCYTE SEDIMENTATION RATE, HLA TYPING B27, SS-A (SJOGREN'S) ANTIBODY, SS-B (SJOGREN'S) ANTIBODY, URIC ACID BLOOD, FERRITIN, THIOPURINE METHYLTRANSFERASE, ANCA SCREEN W MPO+PR3 W REFEX ANCA TITER, XR Cervical Spine 2 or 3Vw, XR Hand Bilat 2Vw, XR Shoulder Bilat 2Vw or More, CANCELED: XR Cervical Spine 2 or 3Vw, CANCELED: XR Hand Bilat 2Vw, CANCELED: XR ShoulderBilat 2Vw or More Raynaud's syndrome without gangrene - Plan: ANGIOTENSIN CONVERTING ENZYME BLOOD, CK BLOOD, C-REACTIVE PROTEIN, CYCLIC CITRULLINATED PEPTIDE(CCP) AB IGG, ERYTHROCYTE SEDIMENTATION RATE, HLA TYPING B27, SS-A (SJOGREN'S) ANTIBODY, SS-B (SJOGREN'S) ANTIBODY, URIC ACID BLOOD, FERRITIN, THIOPURINE METHYLTRANSFERASE, ANCA SCREEN W MPO+PR3 W REFEX ANCA TITER, CANCELED: XR Cervical Spine 2 or 3Vw, CANCELED: XR Hand Bilat 2Vw, CANCELED: XR Shoulder Bilat 2Vw or More Cervicalgia - Plan: ANGIOTENSIN CONVERTING ENZYME BLOOD, CK BLOOD, C-REACTIVE PROTEIN, CYCLIC CITRULLINATED PEPTIDE(CCP) AB IGG, ERYTHROCYTE SEDIMENTATION RATE, HLA TYPING B27, SS-A (SJOGREN'S) ANTIBODY, SS-B (SJOGREN'S) ANTIBODY, URIC ACID BLOOD, FERRITIN, THIOPURINE METHYLTRANSFERASE, ANCA SCREENW MPO+PR3 W REFEX ANCA TITER, CANCELED: XR Cervical Spine 2 or 3Vw, CANCELED: XR Hand Bilat 2Vw, CANCELED: XR Shoulder Bilat 2Vw or More Encounter for long-term (current) use of high-risk medication - Plan: ANGIOTENSIN CONVERTING ENZYMEBLOOD, CK BLOOD, C-REACTIVE PROTEIN, CYCLIC CITRULLINATED PEPTIDE(CCP) AB IGG, ERYTHROCYTE SEDIMENTATION RATE, HLA TYPING B27, SS-A (SJOGREN'S) ANTIBODY, SS-B (SJOGREN'S) ANTIBODY, URIC ACID BLOOD, FE RRITIN, THIOPURINE METHYLTRANSFERASE, ANCA SCREEN W MPO+PR3 W REFEX ANCA TITER, CANCELED: XR Cervical Spine 2 or 3Vw, CANCELED: XR Hand Bilat 2Vw, CANCELED: XR Shoulder Bilat 2Vw or More Renal insufficiency Patient with chronic aches and pains, mild chronic renal insufficiency, 1 kidney. Differential diagnoses include noninflammatory pain like osteoarthritis versus inflammatory arthritis and connective tissue disease like lupus rheumatoid arthritis vasculitis, crystal arthritic ease and paraneoplastic syndrome. I have advised routine medical care and cancer screening appropriate for age and risk factors through PCP. We discussed doing work-up to rule out autoimmune diseases the patient agrees. Most of the pain seems noninflammatory. He can not take nonsteroidals due to chronic renal insufficiency Patient agrees to do workup to rule out autoimmune diseases and inflammatory arthritis. I will make further plan at next visit after going over the workup ordered today. Thank you for referral, I hope that I will be off benefit in care for this pleasant patient. Pleasefeel free to call for any questions. Plan Plan: There are no discontinued medications. Current Outpatient Medications Medication Sig Dispense Refill albuterol HFA (Proventil; Ventolin; Proair) 108 (90 Base) MCG/ACT inhaler Inhale 1 (one) puff by mouth as directed buPROPion XL 24hr (Wellbutrin-XL) 300 MG tablet Take 1 (one) tablet by mouth every morning dapagliflozin propanediol (Farxiga) 10 MG tablet Take 1 (one) tablet by mouth every morning DULoxetine (Cymbalta) 60 MG capsule Take 1 (one) capsule by mouth once daily pantoprazole EC (Protonix) 20 MG tablet Take 1 (one) tablet by mouth once daily rosuvastatin (Crestor) 10 MG tablet Take 1 (one) tablet by mouth once daily valACYclovir (Valtrex) 500 MG tablet Take by mouth 2 times daily No current facility-administered medications for this visit. Orders Placed This Encounter XR Cervical Spine 2 or 3Vw Standing Status: Future Standing Expiration Date: 10/15/2025 Order Specific Question: Release to patient Answer: Immediate Order Specific Question: Which views are required? Answer: Radiologist Protocol Views XR Hand Bilat 2Vw Standing Status: Future Standing Expiration Date: 10/15/2025 Order Specific Question: Release to patient Answer: Immediate XR Shoulder Bilat 2Vw or More Standing Status: Future Standing Expiration Date: 10/15/2025 Order Specific Question: Release to patient Answer: Immediate Order Specific Question: Which views are required? Answer: Radiologist Protocol Views ANGIOTENSIN CONVERTING ENZYME BLOOD Order Specific Question: Release to patient Answer: Immediate CK BLOOD Order Specific Question: Release to patient Answer: Immediate C-REACTIVE PROTEIN Order Specific Question: Release to patient Answer: Immediate CYCLIC CITRULLINATED PEPTIDE(CCP) AB IGG Order Specific Question: Release to patient Answer: Immediate ERYTHROCYTE SEDIMENTATION RATE Order Specific Question: Release to patient Answer: Immediate HLA TYPING B27 Order Specific Question: Release to patient Answer: Immediate SS-A (SJOGREN'S) ANTIBODY Order Specific Question: Release to patient Answer: Immediate SS-B (SJOGREN'S) ANTIBODY Order Specific Question: Release to patient Answer: Immediate URIC ACID BLOOD Order Specific Question: Release to patient Answer: Immediate FERRITIN Order Specific Question: Release to patient Answer: Immediate THIOPURINE METHYLTRANSFERASE Order Specific Question: Release to patient Answer: Immediate ANCA SCREEN W MPO+PR3 W REFEX ANCA TITER Order Specific Question: Release to patient Answer: Immediate We will discuss results of workup ordered today at next visit,unless they need to be taken care of urgently. Call sooner for any problems. Return in about 4 weeks (around 11/12/2024). Cc: PCP This note was generated using the [employer] speech recognition system. Grammatical errors, random word insertions, substitutions, deletions, pronoun errors, and incomplete sentences are an occasional consequence of this technology due to software limitations. Prior to signing the note, I reviewed it for misspellings or errors related to dictation to a reasonable extent, although it is possible that not all errors were caught or corrected. If there are questions or concerns about the content of this note or information contained within the body of this dictation, they should be addresseddirectly with the author for clarification. Thank you. END DEVELOPER documented in this encounter Plan of Treatment Upcoming Encounters Date Type Department Care Team (Late st Contact Info) Description 11/17/2024 9:00 AM BACK END DEVELOPER Office Visit [facility] - Rheumatology [address] [place] [address], [address] [place] [address] Johnson Jhaveri MD [address] [place] [address] documented as of this encounter Procedures Procedure Name Priority Date/Time Associated Diagnosis Comments C-REACTIVE PROTEIN Routine 10/16/2024 2: 20 PM BACK END DEVELOPER Polyarthralgia Raynaud's syndrome without gangrene Cervicalgia Encounter for long-term (current) use of high-risk medication ANGIOTENSIN CONVERTING ENZYME BLOOD Routine 10/16/2024 2:20 PM BACK END DEVELOPER Polyarthralgia Raynaud's syndrome without gangrene Cervicalgia Encounter for long-term (current) use of high-risk medication CYCLIC CITRULLINATED PEPTIDE(CCP) AB IGG Routine 10/16/2024 2:20 PM BACK END DEVELOPER Polyarthralgia Raynaud's syndrome without gangrene Cervicalgia Encounter for long-term (current) use of high-risk medication ERYTHROCYTE SEDIMENTATION RATE Routine 10/16/2024 2:20 PM BACK END DEVELOPER Polyarthralgia Raynaud's syndrome without gangrene Cervicalgia Encounter for long-term (current) use of high-risk medication CK BLOOD Routine 10/16/2024 2:20 PM BACK END DEVELOPER Polyarthralgia Raynaud's syndrome without gangrene Cervicalgia Encounter for long-term (current) use of high-risk medication SS-A (SJOGREN'S) ANTIBODY Routine 2024 2:17 PM BACK END DEVELOPER Polyarthralgia Raynaud's syndrome without gangrene Cervicalgia Encounter for long-term (current) use of high-risk medication FERRITIN Routine 10/16/2024 2:17 PM BACK END DEVELOPER Polyarthralgia Raynaud's syndrome without gangrene Cervicalgia Encounter for long-term (current) use of high-risk medication ANCA SCREEN W MPO+PR3 W REFEX ANCA TITER Routine 10/16/2024 2:16 PM BACK END DEVELOPER Polyarthralgia Raynaud's syndrome without gangrene Cervicalgia Encounter for long-term (current) use of high-risk medication URIC ACID BLOOD Routine 10/16/2024 2:16 PM BACK END DEVELOPER Polyarthralgia Raynaud's syndrome without gangrene Cervicalgia Encounter for long-term (current) use of high-risk medication HLA TYPING B27 Routine 10/16/2024 2:16 PM BACK END DEVELOPER Polyarthralgia Raynaud's syndrome without gangrene Cervicalgia Encounter for long-term (current) use of high-risk medication SS-B (SJOGREN'S) ANTIBODY Routine 2024 2:16 PM BACK END DEVELOPER Polyarthralgia Raynaud's syndrome without gangrene Cervicalgia Encounter for long-term (current) use of high-risk medication THIOPURINE METHYLTRANSFERASE Routine 10/16/2024 2:16 PM BACK END DEVELOPER Polyarthralgia Raynaud's syndrome without gangrene Cervicalgia Encounter for long-term (current) use of high-risk medication documented in this encounter Results * (ABNORMAL) ERYTHROCYTE SEDIMENTATION RATE (10/16/2024 2:20 PM BACK END DEVELOPER) Erythrocyte Sedimentation Rate Westergren 17(H) < OR = 15 mm/h [facility] Comment: Test Performed at: [facility] [address] ??[id number] FRANKLIN MCGEE MD Blood BLOOD SPECIMEN / Unknown 10/16/2024 2:20 PM BACK END DEVELOPER 10/16/2024 2:20 PM BACK END DEVELOPER Johnson Jhaveri MD LAB - HEMATOLOGY ORD ERABLES [facility] [address] [place] [address] * CYCLIC CITRULLINATED PEPTIDE(CCP) AB IGG (10/16/2024 2:20 PM BACK END DEVELOPER) Cyclic Citrullinated Peptide Antibody IgG <16 UNITS [facility] Comment: Reference Range Negative: ?<20 Weak Positive: ? 20-39 Moderate Positive: ?? 40-59 Strong Positive: ? >59 Test Performed at: [facility] [address] ??[phone] FRANKLIN MCGEE MD Blood BLOOD SPECIMEN / Unknown 10/16/2024 2:20 PM BACK END DEVELOPER 10/16/2024 2:20 PM BACK END DEVELOPER Johnson Jhaveri MD LAB - CHEMISTRY MANPREET FOSTER Performing Organization Address [facility] de Phone Number [facility] [phone] [place] [address] * C-REACTIVE PROTEIN (10/16/2024 2:20 PM BACK END DEVELOPER) C-Reactive Protein 7.7 <8.0 mg/L [facility] Comment: Test Performed at: [facility] [address] ??[phone] FRANKLIN MCGEE MD Blood BLOOD SPECIMEN / Unknown 10/16/2024 2:20 PM BACK END DEVELOPER 10/16/2024 2:20 PM BACK END DEVELOPER Johnson Jhaveri MD LAB - CHEMISTRY MANPREET FOSTER Performing Organization Address [facility] de Phone Number [facility] [id number] [place] [phone] * CK BLOOD (10/16/2024 2:20 PM BACK END DEVELOPER) CK 80 44 - 196 U/L [facility] Comment: Test Performed at: [facility] [address] ??[phone] FRANKLIN MCGEE MD Blood BLOOD SPECIMEN / Unknown 10/16/2024 2:20 PM BACK END DEVELOPER 10/16/2024 2:20 PM BACK END DEVELOPER Johnson Jhaveri MD LAB - CHEMISTRY MANPREET FOSTER Performing Organization Address [facility]/ZIP Co de Phone Number [address] [address] * ANGIOTENSIN CONVERTING ENZYME BLOOD (10/16/2024 2:20 PM BACK END DEVELOPER) Angiotensin-Conv erting Enzyme 40 9 - 67 U/L [facility] Comment: Test Performed at: [facility] [address] [place] [address] ??[phone] FRANKLIN MCGEE MD Blood BLOOD SPECIMEN / Unknown 10/16/2024 2:20 PM BACK END DEVELOPER 10/16/2024 2:20 PM BACK END DEVELOPER Johnson Jhaveri MD LAB - CHEMISTRY MANPREET FOSTER Performing Organization Address [facility] [place] [address] * (ABNORMAL) FERRITIN (10/16/2024 2:17 PM BACK END DEVELOPER) Ferritin 23(L) 38 - 380 ng/mL [facility] Comment: Test Performed at: [facility] [address] [place] [address] ??[phone] FRANKLIN MCGEE MD Blood BLOOD SPECIMEN / Unknown 10/16/2024 2:17 PM BACK END DEVELOPER 10/16/2024 2:19 PM BACK END DEVELOPER Johnson Jhaveri MD LAB - CHEMISTRY MANPREET FOSTER Performing Organization Address [facility] Co de Phone Number [address] [address] * SS-A (SJOGREN'S) ANTIBODY (10/16/2024 2:17 PM BACK END DEVELOPER) Sjogren's Antibodies (SSA) <1.0 NEG <1.0 NEG AI [facility] Comment: Test Performed at: [facility] [place] ??[phone] FRANKLIN MCGEE MD Blood BLOOD SPECIMEN / Unknown 10/16/2024 2:17 PM BACK END DEVELOPER 10/16/2024 2:19 PM BACK END DEVELOPER Johnson Jhaveri MD LAB - CHEMISTRY MANPREET FOSTER [facility] [address] [place] [address] * ANCA SCREEN W MPO+PR3 W REFEX ANCA TITER (10/16/2024 2:16 PM BACK END DEVELOPER) ANCA Screen Negative Negative [facility] Comment: ANCA screen uses indirect immunofluorescence to detect antibodies to neutrophil cytoplasmic antigens. A positive screen reflexes to titer and pattern. Patterns include cytoplasmic (c-ANCA) and perinuclear (p-ANCA) both of which are associated with vasculitis, and atypical p-ANCA which is associated with inflammatory bowel disease and other disorders. ? Myeloperoxidase Antibody <1.0 <1.0 AI [facility] Comment: ? Value ?? Interpretation ?<1.0 AI: No Antibody Detected ? >or=1.0 AI: Antibody Detected Autoantibodies to myeloperoxidase (MPO) are commonly associated with the following small-vessel vasculitides: microscopic polyangiitis, polyarteritis nodosa, Churg-Juan Carlos syndrome, necrotizing and crescentic glomerulonephritis and occasionally granulomatosis with polyangiitis (GPA, Quan's). The perinuclear IFA pattern, (p-ANCA) is based largely on autoantibody to myeloperoxidase which serves as the primary antigen. These autoantibodies are present in active disease. Proteinase 3 Antibody <1.0 <1.0 AI [facility] Comment: ?Value ?Interpretation ?<1.0 AI: No Antibody Detected ? >or=1.0 AI: Antibody Detected Autoantibodies to proteinase-3 (AR-3) are accepted as characteristic for granulomatosis with polyangiitis (GPA, Quan's), and are detectable in 95% of the histologically proven cases. The cytoplasmic IFA pattern, (c-ANCA), is based largely on autoantibody to AR-3 which serves as the primary antigen. These autoantibodies are present in active disease. Test Performed at: [facility] [address] [place], [place] ?? ELIEZER DELGADO MD,PHD Blood BLOOD SPECIMEN / Unknown 10/16/2024 2:16 PM BACK END DEVELOPER 10/16/2024 2:16 PM BACK END DEVELOPER Johnson Jhaveri MD LAB - CHEMISTRY MANPREET FOSTER Performing Organization Address [facility] Co de Phone Number [facility] [address] [place] [address] * THIOPURINE METHYLTRANSFERASE (10/16/2024 2:16 PM BACK END DEVELOPER) TPMT Activity 17 nmol/hr/mL RBC [facility] Comment: Reference Range for TPMT Activity: ?? >12 ? Normal ??4-12 ? Heterozygote or low metabolizer ?<4 ? Homozygote Deficient Range This test was developed and its analytical performance characteristics have been determined by [employer]. It has not been cleared or approved by FDA. This assay has been validated pursuant to the CLIA regulations and is used for clinical purposes. Test Performed at: [facility] [address] [place], [place] ??[phone] JOSHUA WILLAMS MD,PHD,BOB Blood BLOOD SPECIMEN / Unknown 10/16/2024 2:16 PM BACK END DEVELOPER 10/16/2024 2:16 PM BACK END DEVELOPER Johnson Jhaveri MD LAB - CHEMISTRY MANPREET FOSTER Performing Organization Address [facility] Co de Phone Number [facility] [address] [place] [address] * URIC ACID BLOOD (10/16/2024 2:16 PM BACK END DEVELOPER) Pathologist [facility] Uric Acid 6.0 4.0 - 8.0 mg/dL [facility] Comment: Therapeutic target for gout patients: <6.0 mg/dL ?? Test Performed at: [facility] [place] [address] [place] ??[phone] FRANKLIN MCGEE MD Blood BLOOD SPECIMEN / Unknown 10/16/2024 2:16 PM BACK END DEVELOPER 10/16/2024 2:16 PM BACK END DEVELOPER Johnson Jhaveri MD LAB - CHEMISTRY MANPREET FOSTER Performing Organization Address [facility]/ZIP Co de Phone Number [facility] [address] [place] [address] * SS-B (SJOGREN'S) ANTIBODY (10/16/2024 2:16 PM BACK END DEVELOPER) Sjogren's Antibodies (SSB) <1.0 NEG <1.0 NEG AI [facility] Comment: Test Performed at: [facility] [address] ??[phone] FRANKLIN MCGEE MD Blood BLOOD SPECIMEN / Unknown 10/16/2024 2:16 PM BACK END DEVELOPER 10/16/2024 2:16 PM BACK END DEVELOPER Johnson Jhaveri MD LAB - CHEMISTRY MANPREET FOSTER Performing Organization Address [facility] Co de Phone Number [facility] [address] [place] [address] * HLA TYPING B27 (10/16/2024 2:16 PM BACK END DEVELOPER) HLA-B27 Antigen NEGATIVE NEGATIVE [facility] Comment: Test Performed at: [facility] [address] ??[phone] DYLLAN HURLEY Blood BLOOD SPECIMEN / Unknown 10/16/2024 2:16 PM BACK END DEVELOPER 10/16/2024 2:16 PM BACK END DEVELOPER Johnson Jhaveri MD LAB - CHEMISTRY MANPREET FOSTER Performing Organization Address [facility]/ZIP Co de Phone Number [facility] [address] [place] [address] * XR Shoulder Bilat 2Vw or More (10/16/2024) Anatomical Region Laterality Modality Upper Extremity Other Johnson Jhaveri MD DIAGNOSTIC IMAGING O RDERABLES * XR Hand Bilat 2Vw (10/16/2024) Anatomical Region Laterality Modality Wrist / Hand, Upper Extremity Ot her Johnson Jhaveri MD DIAGNOSTIC IMAGING O RDERABLES * XR Cervical Spine 2 or 3Vw (10/16/2024) Anatomical Region Laterality Modality Spine Other Johnson Jhaveri MD DIAGNOSTIC IMAGING O RDERABLES documented in this encounter Visit Diagnoses Diagnosis Polyarthralgia- Primary Pain in joint, multiple sites Raynaud's syndrome without gangrene Raynaud's syndrome Cervicalgia Encounter for long-term (current) use of high-risk medication Encounter for long-term (current) use of other medications Renal insufficiency Unspecified disorder of kidney and ureter documented in this encounter Care Teams Financial Services Education Consultant Relationship Specialty Start Date End Date Alton Seo MD [address] [place] [phone] PCP - General Family Medicine 10/02/24 documented as of this encounter
--- OUTSIDE RECORDS SUMMARY | 2024-10-24 12:29 | XMS_ITS ---
Author Organization [facility] Address [address] [place] [address] Care Team Providers Care Press Machine Operator Name Role Phone Alton Seo Primary Care Provider Unavailabl Madison Henson Unavailable [phone] ZZ-Migration, Provider Unavailable Unavailab le REASON FOR VISIT [facility] To [facility] Conversion Encounter Medications Medication SIG (Take, Route, Frequency, Duration) Notes Start Date End Date Status ZyrTEC Allergy 10 MG 1 tab(s) orally once a day Active Protonix 20 MG 1 tab(s) orally once a day Active PROAIR HFA 90 MCG/INH 2 PUFF(S) INHALED EVERY 6 HOURS *Please review for potential replacement for e-prescription and drug interaction check* Active Sildenafil Citrate 50 MG 1 tab(s) orally Qday, PRN Active Valtrex 500 MG 1 tab(s) orally once a day Active Zoloft 100 MG 1 tab(s) orally once a day Active Wellbutrin XL 300 MG 1.5 tab(s) orally every 24 hours Active Encounters Encounter Location Date Provider Diagnosis [address] [phone] 03/28/2024 Provider ZZ-Migration Allergic rhinitis due to pollen J30.1 and Gastro-esophageal reflux disease without esophagitis K21.9 Assessments Encounter Date Diagnosis (ICD Code) Assessment Notes Treatment Notes Treatment Clinical Notes Section Notes 03/28/2024 Allergic rhinitis due to pollen (ICD-10 - J30.1) 03/28/2024 Gastro-esophagea l reflux disease without esophagitis (ICD-10 - K21.9) Plan Of Treatment Medication Medication Name Sig Start Date Stop Date Notes ZyrTEC Allergy 10 MG 1 tab(s) orally once a day Protonix 20 MG 1 tab(s) orally once a day PROAIR HFA 90 MCG/INH 2 PUFF(S) INHALED EVERY 6 HOURS *Please review for potential replacement for e-prescription and drug interaction check* Sildenafil Citrate 50 MG 1 tab(s) orally Qday, PRN Valtrex 500 MG 1 tab(s) orally once a day Zoloft 100 MG 1 tab(s) orally once a day Wellbutrin XL 300 MG 1.5 tab(s) orally every 24 hours Progress Notes * Zeke BUSHDOB:1980 (44 yo M)Acc No.[id number]:03/28/2024 Patient:?Zeke BUSH Provider:?Provider Migration :1980???Age:43 Y???Sex:Male Owen e:03/28/2024 Address:[address] [place], [place] [phone] Pcp:Alton Seo Subjective: * Chief Complaints: * ???1. [facility] To [facility] Con version Encounter. * Medical History:? Objective: * Vitals:? Assessment: * Assessment: 1.?Allergic rhinitis due to pollen - J30.1 (Primary)???2.?Gastro-esophageal reflux disease without esophagitis - K21.9??? Plan: * Treatment: 2.?Gastro-esophageal reflux disease without esophagitis? Continue Protonix Tablet Delayed Release, 20 MG, 1 tab(s), orally, once a day.?? 3.?Others? Continue PROAIR HFA AEROSOL, 90 MCG/INH, 2 PUFF(S), INHALED, EVERY 6 HOURS, Notes to Pharmacist: *Please review for potential replacement for e-prescription and drug interaction check*;?Continue Sildenafil Citrate Tablet, 50 MG, 1 tab(s), orally, Qday, PRN;?Continue Valtrex Tablet, 500 MG, 1 tab(s), orally, once a day;?Continue Zoloft Tablet, 100 MG, 1 tab(s), orally, once a day; Continue Wellbutrin XL Tablet Extended Release 24 Hour, 300 MG, 1.5 tab(s), orally, every 24 hours.?? * Billing Information: * Visit Code:? * Procedure Codes:? * Electronic signature of Yoandy GANT-Migration on 10/24/2024 at 12:29 PM BEAD PICKER Sign off status: Pending * Provider:?Provider Migration Date:?03/28 Generated for Zoraida manuel/Jeronimo/Reynaldoitting on:?10/24/2024 12:29 PM BEAD PICKER
--- OUTSIDE RECORDS SUMMARY | 2024-10-24 12:29 | XMS_ITS | Encounter Summary ---
Author Organization [facility] Address [address] [place] [address] Care Team Providers Care Park Warden Name Role Phone Alton Seo MD Primary Care Provider [phone] Reason for Visit * Reason Onset Date Comments Referral 10/02/2024 Encounter Details Date Type Department Care Team (Late st Contact Info) Description 10/02/2024 Telephone [facility] - Rheumatology [address] [place] [phone] Group, [facility] Medical Referral Social History Tobacco Use Types Packs/Day Years Used Date Smoking Tobacco: Never Assessed Sex and Gender Information Value Date Recorded Sex Assigned at Not on file Gender Identity Not on file Sexual Orientation Not on file documented as of this encounter Miscellaneous Notes * Telephone Encounter - Que Bryan RN - 10/05/2024 2:31 PM CST Patient called and scheduled for ACOUSTICAL CARPENTER appointment with Dr. Jhaveri on 10/15/2024. HOUSE CONSULTANT * Telephone Encounter - Que Bryan RN - 10/02/2024 1:57 PM CST Received a referral from Dr. Seo requesting patient be evaluated by rheumatology for polyarthropathy. Patient called, no answer, LMOR for patient to contact the office back in order to schedule a ACOUSTICAL CARPENTER appointment with either Dr. Ferraro, Dr. Jhaveri or Dr. Keller. Called referral x1. HOUSE CONSULTANT documented in this encounter Plan of Treatment Upcoming Encounters Date Type Department Care Team (Late st Contact Info) Description 11/17/2024 9:00 AM WAREHOUSE CONSULTANT Office Visit [facility] - Rheumatology [address], [address] [place] [address] Johnson Jhaveri MD [address] [place] [address] documented as of this encounter Visit Diagnoses Not on filedocumented in this encounter Care Teams Park Warden Relationship Specialty Start Date End Date Alton Seo MD [address] [place] [phone] PCP - General Family Medicine 10/02/24 documented as of this encounter
--- OUTSIDE RECORDS SUMMARY | 2024-10-24 12:29 | XMS_ITS | Clinical Summary ---
Author Organization [facility] Address [address] [place] [address]. [place], [place] [address] [place] [address] Care Team Providers Care Desk Officer Name Role Phone Alton Seo MD Primary Care Provider [phone] Social History Tobacco Use Types Packs/Day Years Used Date Smoking Tobacco: Never Assessed Sex and Gender Information Value Date Recorded Sex Assigned at Not on file Legal Sex Male 8:35 PM CDT Gender Identity Not on file Sexual Orientation Not on file Plan of Treatment Health Maintenance Due Date Last Done Comments Colorectal Cancer Screening Colonoscopy (10 Years) 1979 Annual Physical 1982 DTaP, Tdap and Td Vaccines ( 2 - Tdap) 03/23/1994 03/22/1994 Hepatitis C 1997 Hepatitis B Vaccines (1 of 3 - 19+ 3-dose series) 1998 COVID-19 Vaccine (2023-2 5 season) 2024 09/04/2021, 11/18/2020, 10/28/2020 Influenza Adult (#1) 2024 10/18/2021 HPV Vaccines Aged Out No longer eligi ble based on patient's age to complete this topic Meningococcal Vaccine Aged Out No aliya armando eligible based on patient's age to complete this topic Pneumococcal Vaccine: Pediatrics (0 to 5 Years) and At-Risk Patients (6 to 64 Years) Aged Out No longer eligible b ased on patient's age to complete this topic RSV Immunizations Under 20 Months Aged Out No longer eligible b ased on patient's age to complete this topic Insurance [facility] Care Teams Desk Officer Relationship Specialty Start Date End Date Alton Seo MD PCP - General HOSPITALIST 06/04/22
--- OUTSIDE RECORDS SUMMARY | 2024-10-24 12:29 | XMS_ITS | Referral Summary ---
Author Organization [facility] Address [address] [place] [address] Care Team Providers Care Travel Clerk Name Role Phone Alton Seo MD Primary Care Provider [phone] Source Comments [facility],non-Community Health and Associated Physician Practices is amultiple site organization consisting of ambulatory clinics and hospital sitesin [place], [place], [place] and [place]. This disclosure is being madepursuant to the Care Everywhere program and may not contain all information available regarding this patient. Last updated 18.[facility] Encounters Date Type Department Care Team Description 10/19/2024 Orders Only [facility] - Rheumatology [address] [place] [address], [address] [place] [phone] Johnson Jhaveri MD Polyarthralgia 10/15/2024 10:00 AM TECHNOLOGY TRAINING ASSOCIATE Office Visit [facility] Rheumatology [address] [place] [address], [address] [place] [address] Johnson Jhaveri MD Polyarthralgia (Primary Dx); Raynaud's syndrome without gangrene; Cervicalgia; Encounter for long-term (current) use of high-risk medication; Renal insufficiency 10/02/2024 Telephone [facility] - Rheumatology [address] [place] [address], [address] [place] [phone] [facility] Allergies No known active allergies Medications * Be aware that medications may not be up to date on this document. Alwaysverify current medications with the patient. Medication Sig Dispensed Refills Start Date End Date Status buPROPion XL 24hr (Wellbutrin-XL) 300 MG tablet Take 1 (one) tablet by mouth every morning Active DULoxetine (Cymbalta) 60 MG capsule Take 1 (one) capsule by mouth once daily Active valACYclovir (Valtrex) 500 MG tablet Take by mouth 2 times daily Active pantoprazole EC (Protonix) 20 MG tablet Take 1 (one) tablet by mouth once daily Active rosuvastatin (Crestor) 10 MG tablet Take 1 (one) tablet by mouth once daily Active dapagliflozin propanediol (Farxiga) 10 MG tablet Take 1 (one) tablet by mouth every morning Active albuterol HFA (Proventil; Ventolin; Proair) 108 (90 Base) MCG/ACT inhaler Inhale 1 (one) puff by mouth as directed 10/24/2023 Active Active Problems No known active problems Social History Tobacco Use Types Packs/Day Years Used Date Smoking Tobacco: Never Smokeless Tobacco: Never Tobacco Cessation:Counseling Given: Not Answered Sex and Gender Information Value Date Recorded Sex Assigned at Not on file Gender Identity Not on file Sexual Orientation Not on file Last Filed Vital Signs Vital Sign Reading Time Taken Comments Blood Pressure 128/78 10/15/2024 10:12 AM TECHNOLOGY TRAINING ASSOCIATE Pulse 75 10/15/2024 10:12 AM TECHNOLOGY TRAINING ASSOCIATE Temperature 36.5 ??C (97.7 ??F) 10/15/2024 1 0:12 AM TECHNOLOGY TRAINING ASSOCIATE Respiratory Rate 16 10/15/2024 10:1 2 AM TECHNOLOGY TRAINING ASSOCIATE Oxygen Saturation 93% 10/15/2024 10: 12 AM TECHNOLOGY TRAINING ASSOCIATE Inhaled Oxygen Concentration - - Weight 101.1 kg (222 lb 12.8 oz) 2024 10:12 AM TECHNOLOGY TRAINING ASSOCIATE Height - - Body Mass Index - - Plan of Treatment Upcoming Encounters Date Type Department Care Team (Late st Contact Info) Description 11/17/2024 9:00 AM TECHNOLOGY TRAINING ASSOCIATE Office Visit [facility] - Rheumatology [address] [facility] [address] [facility], [address] [place] [address] Johnson Jhaveri MD [address] [place] [address] Procedures Procedure Name Priority Date/Time Associated Diagnosis Comments ERYTHROCYTE SEDIMENTATION RATE Routine 10/16/2024 2:20 PM TECHNOLOGY TRAINING ASSOCIATE Polyarthralgia Raynaud's syndrome without gangrene Cervicalgia Encounter for long-term (current) use of high-risk medication CYCLIC CITRULLINATED PEPTIDE(CCP) AB IGG Routine 10/16/2024 2:20 PM TECHNOLOGY TRAINING ASSOCIATE Polyarthralgia Raynaud's syndrome without gangrene Cervicalgia Encounter for long-term (current) use of high-risk medication C-REACTIVE PROTEIN Routine 10/16/2024 2: 20 PM TECHNOLOGY TRAINING ASSOCIATE Polyarthralgia Raynaud's syndrome without gangrene Cervicalgia Encounter for long-term (current) use of high-risk medication CK BLOOD Routine 10/16/2024 2:20 PM TECHNOLOGY TRAINING ASSOCIATE Polyarthralgia Raynaud's syndrome without gangrene Cervicalgia Encounter for long-term (current) use of high-risk medication ANGIOTENSIN CONVERTING ENZYME BLOOD Routine 10/16/2024 2:20 PM TECHNOLOGY TRAINING ASSOCIATE Polyarthralgia Raynaud's syndrome without gangrene Cervicalgia Encounter for long-term (current) use of high-risk medication FERRITIN Routine 10/16/2024 2:17 PM TECHNOLOGY TRAINING ASSOCIATE Polyarthralgia Raynaud's syndrome without gangrene Cervicalgia Encounter for long-term (current) use of high-risk medication SS-A (SJOGREN'S) ANTIBODY Routine 2024 2:17 PM TECHNOLOGY TRAINING ASSOCIATE Polyarthralgia Raynaud's syndrome without gangrene Cervicalgia Encounter for long-term (current) use of high-risk medication ANCA SCREEN W MPO+PR3 W REFEX ANCA TITER Routine 10/16/2024 2:16 PM TECHNOLOGY TRAINING ASSOCIATE Polyarthralgia Raynaud's syndrome without gangrene Cervicalgia Encounter for long-term (current) use of high-risk medication THIOPURINE METHYLTRANSFERASE Routine 10/16/2024 2:16 PM TECHNOLOGY TRAINING ASSOCIATE Polyarthralgia Raynaud's syndrome without gangrene Cervicalgia Encounter for long-term (current) use of high-risk medication URIC ACID BLOOD Routine 10/16/2024 2:16 PM TECHNOLOGY TRAINING ASSOCIATE Polyarthralgia Raynaud's syndrome without gangrene Cervicalgia Encounter for long-term (current) use of high-risk medication SS-B (SJOGREN'S) ANTIBODY Routine 2024 2:16 PM TECHNOLOGY TRAINING ASSOCIATE Polyarthralgia Raynaud's syndrome without gangrene Cervicalgia Encounter for long-term (current) use of high-risk medication HLA TYPING B27 Routine 10/16/2024 2:16 PM TECHNOLOGY TRAINING ASSOCIATE Polyarthralgia Raynaud's syndrome without gangrene Cervicalgia Encounter for long-term (current) use of high-risk medication XR CERVICAL SPINE 2 OR 3VW Routine 10/16/2024 Polyarthralgia XR HAND BILAT 2VW Routine 10/16/2024 Polyarthralgia XR SHOULDER BILAT 2VW OR MORE Routine 10/16/2024 Polyarthralgia from Last 3 Months Results * C-REACTIVE PROTEIN (10/16/2024 2:20 PM TECHNOLOGY TRAINING ASSOCIATE) Pathologist [facility] C-Reactive Protein 7.7 <8.0 mg/L [facility] Comment: Test Performed at: [facility] [place], [place] ??[phone] FRANKLIN MCGEE MD Blood BLOOD SPECIMEN / Unknown 10/16/2024 2:20 PM TECHNOLOGY TRAINING ASSOCIATE 10/16/2024 2:20 PM TECHNOLOGY TRAINING ASSOCIATE Johnson Jhaveri MD LAB - CHEMISTRY MANPREET FOSTER [facility] Organization Address City/State/ZIP Co de Phone Number [facility] [address] [place] [address] * ANGIOTENSIN CONVERTING ENZYME BLOOD (10/16/2024 2:20 PM TECHNOLOGY TRAINING ASSOCIATE) Angiotensin-Conv erting Enzyme 40 9 - 67 U/L [facility] Comment: Test Performed at: [facility] [place], [place] ??[address] FRANKLIN MCGEE MD Blood BLOOD SPECIMEN / Unknown 10/16/2024 2:20 PM TECHNOLOGY TRAINING ASSOCIATE 10/16/2024 2:20 PM TECHNOLOGY TRAINING ASSOCIATE Johnson Jhaveri MD LAB - CHEMISTRY MANPREET FOSTER Performing Organization Address [facility] Co de Phone Number [facility] [phone] [place] [address] * CYCLIC CITRULLINATED PEPTIDE(CCP) AB IGG (10/16/2024 2:20 PM TECHNOLOGY TRAINING ASSOCIATE) Cyclic Citrullinated Peptide Antibody IgG <16 UNITS [facility] Comment: Reference Range Negative: ?<20 Weak Positive: ? 20-39 Moderate Positive: ?? 40-59 Strong Positive: ? >59 Test Performed at: [facility] [address] [place], [place] ??[phone] FRANKLIN MCGEE MD Blood BLOOD SPECIMEN / Unknown 10/16/2024 2:20 PM TECHNOLOGY TRAINING ASSOCIATE 10/16/2024 2:20 PM TECHNOLOGY TRAINING ASSOCIATE Johnson Jhaveri MD LAB - CHEMISTRY MANPREET FOSTER Performing Organization Address [facility] Co de Phone Number [facility] [phone] [place] [phone] * (ABNORMAL) ERYTHROCYTE SEDIMENTATION RATE (10/16/2024 2:20 PM TECHNOLOGY TRAINING ASSOCIATE) Pathologist [facility] Erythrocyte Sedimentation Rate Westergren 17(H) < OR = 15 mm/h [facility] Comment: Test Performed at: [facility] [place], [place] ??[phone] FRANKLIN MCGEE MD Blood BLOOD SPECIMEN / Unknown 10/16/2024 2:20 PM TECHNOLOGY TRAINING ASSOCIATE 10/16/2024 2:20 PM TECHNOLOGY TRAINING ASSOCIATE Johnson Jhaveri MD LAB - HEMATOLOGY ORD ERAJAY Performing Organization Address [facility] Co de Phone Number [facility] [phone] [place] [address] * CK BLOOD (10/16/2024 2:20 PM TECHNOLOGY TRAINING ASSOCIATE) Pathologist [facility] CK 80 44 - 196 U/L [facility] Comment: Test Performed at: [facility] [address] [place] [address] ??[phone] FRANKLIN MCGEE MD Blood BLOOD SPECIMEN / Unknown 10/16/2024 2:20 PM TECHNOLOGY TRAINING ASSOCIATE 10/16/2024 2:20 PM TECHNOLOGY TRAINING ASSOCIATE Johnson Jhaveri MD LAB - CHEMISTRY MANPREET FOSTER [facility] [address] [place] [address] * SS-A (SJOGREN'S) ANTIBODY (10/16/2024 2:17 PM TECHNOLOGY TRAINING ASSOCIATE) [facility] Sjogren's Antibodies (SSA) <1.0 NEG <1.0 NEG AI [facility] Comment: Test Performed at: [facility] ??[phone] FRANKLIN MCGEE MD Blood BLOOD SPECIMEN / Unknown 10/16/2024 2:17 PM TECHNOLOGY TRAINING ASSOCIATE 10/16/2024 2:19 PM TECHNOLOGY TRAINING ASSOCIATE Johnson Jhaveri MD LAB - CHEMISTRY MANPREET FOSTER Performing Organization Address [facility] Co de Phone Number [facility] [phone] [place] [address] * (ABNORMAL) FERRITIN (10/16/2024 2:17 PM TECHNOLOGY TRAINING ASSOCIATE) [facility] Ferritin 23(L) 38 - 380 ng/mL [facility] Comment: Test Performed at: [facility] [address] [place] [address] ??[phone] FRANKLIN MCGEE MD Blood BLOOD SPECIMEN / Unknown 10/16/2024 2:17 PM TECHNOLOGY TRAINING ASSOCIATE 10/16/2024 2:19 PM TECHNOLOGY TRAINING ASSOCIATE Johnson Jhaveri MD LAB - CHEMISTRY MANPREET FOSTER Performing Organization Address [facility]/ZIP Co de Phone Number [facility] [phone] [place] [address] * ANCA SCREEN W MPO+PR3 W REFEX ANCA TITER (10/16/2024 2:16 PM TECHNOLOGY TRAINING ASSOCIATE) ANCA Screen Negative Negative [facility] Comment: ANCA [...] >or=1.0 AI: Antibody Detected Autoantibodies to proteinase-3 (SC-3) are accepted as characteristic for granulomatosis with polyangiitis (GPA, Quan's), and are detectable in 95% of the histologically proven cases. The cytoplasmic IFA pattern, (c-ANCA), is based largely on autoantibody to SC-3 which serves as the primary antigen. These autoantibodies are present in active disease. Test Performed at: [facility] [address] [place], [place] ??[phone] ELIEZER DELGADO MD,PHD Blood BLOOD SPECIMEN / Unknown 10/16/2024 2:16 PM TECHNOLOGY TRAINING ASSOCIATE 10/16/2024 2:16 PM TECHNOLOGY TRAINING ASSOCIATE Johnson Jhaveri MD LAB - CHEMISTRY MANPREET FOSTER Performing Organization Address City/[facility]/ZIP Co de Phone Number [facility] [phone] [place] [address] * URIC ACID BLOOD (10/16/2024 2:16 PM TECHNOLOGY TRAINING ASSOCIATE) Pathologist [facility] Uric Acid 6.0 4.0 - 8.0 mg/dL [facility] Comment: Therapeutic target for gout patients: <6.0 mg/dL ?? Test Performed at: [facility] [address] [place] [address] ??[phone] FRANKLIN MCGEE MD Blood BLOOD SPECIMEN / Unknown 10/16/2024 2:16 PM TECHNOLOGY TRAINING ASSOCIATE 10/16/2024 2:16 PM TECHNOLOGY TRAINING ASSOCIATE Johnson Jhaveri MD LAB - CHEMISTRY MANPREET FOSTER Performing Organization Address City/[facility]/ZIP Co de Phone Number [facility] [phone] [place] [address] * HLA TYPING B27 (10/16/2024 2:16 PM TECHNOLOGY TRAINING ASSOCIATE) Pathologist [facility] HLA-B27 Antigen NEGATIVE NEGATIVE [facility] Comment: Test Performed at: [facility] [address] ??[phone] DYLLAN HURLEY Blood BLOOD SPECIMEN / Unknown 10/16/2024 2:16 PM TECHNOLOGY TRAINING ASSOCIATE 10/16/2024 2:16 PM TECHNOLOGY TRAINING ASSOCIATE Johnson Jhaveri MD LAB - CHEMISTRY MANPREET FOSTER Performing Organization Address City/[facility]/ZIP Co de Phone Number [facility] [address] [place] [address] * SS-B (SJOGREN'S) ANTIBODY (10/16/2024 2:16 PM TECHNOLOGY TRAINING ASSOCIATE) Pathologist [facility] Sjogren's Antibodies (SSB) <1.0 NEG <1.0 NEG AI [facility] Comment: Test Performed at: [facility] [address] [place], [place] ??[phone] FRANKLIN MCGEE MD Blood BLOOD SPECIMEN / Unknown 10/16/2024 2:16 PM TECHNOLOGY TRAINING ASSOCIATE 10/16/2024 2:16 PM TECHNOLOGY TRAINING ASSOCIATE Johnson Jhaveri MD LAB - CHEMISTRY MANPREET FOSTER Performing Organization Address [facility] Co de Phone Number [facility] [phone] [place] [address] * THIOPURINE METHYLTRANSFERASE (10/16/2024 2:16 PM TECHNOLOGY TRAINING ASSOCIATE) Pathologist [facility] TPMT Activity 17 nmol/hr/mL RBC [facility] Comment: Reference Range for TPMT Activity: ?? >12 ? Normal ??4-12 ? Heterozygote or low metabolizer ?<4 ? Homozygote Deficient Range This test was developed and its analytical performance characteristics have been determined by [employer]. It has not been cleared or approved by FDA. This assay has been validated pursuant to the CLIA regulations and is used for clinical purposes. Test Performed at: [facility] [address] [place], [place] ??[phone] JOSHUA WILLAMS MD,PHD,BOB Blood BLOOD SPECIMEN / Unknown 10/16/2024 2:16 PM TECHNOLOGY TRAINING ASSOCIATE 10/16/2024 2:16 PM TECHNOLOGY TRAINING ASSOCIATE Johnson Jhaveri MD LAB - CHEMISTRY MANPREET FOSTER Performing Organization Address [facility]/ZIP Co de Phone Number [facility] [phone] [place] [address] * XR Hand Bilat 2Vw (10/16/2024) Anatomical Region Laterality Modality Wrist / Hand, Upper Extremity Ot her Johnson Jhaveri MD DIAGNOSTIC IMAGING O RDERABLES * XR Shoulder Bilat 2Vw or More (10/16/2024) Anatomical Region Laterality Modality Upper Extremity Other Johnson Jhaveri MD DIAGNOSTIC IMAGING O RDERABLES * XR Cervical Spine 2 or 3Vw (10/16/2024) Anatomical Region Laterality Modality Spine Other Johnson Jhaveri MD DIAGNOSTIC IMAGING O RDERAJAY from Last 3 Months Care Teams Travel Clerk Relationship Specialty Start Date End Date Alton Seo MD [address] [place] [phone] PCP - General Family Medicine 10/02/24
--- OUTSIDE RECORDS SUMMARY | 2024-10-24 12:29 | XMS_ITS | Clinical Summary ---
Author Organization [facility] Address [address] [place] [address] Care Team Providers Care Marking Stitcher Name Role Phone Alton Seo MD Primary Care Provider [phone] Source Comments [facility],non-owned Affiliates and Associated Physician Practices is amultiple site organization consisting of ambulatory clinics and hospital sitesin [place], [place], [place] and [place]. This disclosure is being madepursuant to the Care Everywhere program and may not contain all information available regarding this patient. Last updated 18.[facility] Allergies No known active allergies Medications * [...] Active Active Problems No known active problems Encounters Date Type Department Care Team Description 10/19/2024 Orders Only [facility] - Rheumatology [address], [address] [place] [address] Johnson Jhaveri MD Polyarthralgia 10/15/2024 10:00 AM ARMATURE TESTER Office Visit [facility] - Rheumatology [address], [address] [place] [address] Johnson Jhaveri MD Polyarthralgia (Primary Dx); Raynaud's syndrome without gangrene; Cervicalgia; Encounter for long-term (current) use of high-risk medication; Renal insufficiency 10/02/2024 Telephone [facility] Rheumatology [address] [place] [address], [address] [place] [address] [facility] Referral from Last 3 Months Family History Medical History Relation Name Comments Lupus Maternal Aunt Arthritis - Rheumatoid Maternal Grandmother Arthritis - Osteo Mother Arthritis - Rheumatoid half-sister Relation Name Status Comments Maternal Aunt Alive Maternal Grandmother Mother half-sister Alive Social History Tobacco Use Types Packs/Day Years Used Date Smoking Tobacco: Never Smokeless Tobacco: Never Tobacco Cessation:Counseling Given: Not Answered Sex and Gender Information Value Date Recorded Sex Assigned at Not on file Gender Identity Not on file Sexual Orientation Not on file Last Filed Vital Signs Vital Sign Reading Time Taken Comments Blood Pressure 128/78 10/15/2024 10:12 AM ARMATURE TESTER Pulse 75 10/15/2024 10:12 AM ARMATURE TESTER Temperature 36.5 ??C (97.7 ??F) 10/15/2024 1 0:12 AM ARMATURE TESTER Respiratory Rate 16 10/15/2024 10:1 2 AM ARMATURE TESTER Oxygen Saturation 93% 10/15/2024 10: 12 AM ARMATURE TESTER Inhaled Oxygen Concentration - - Weight 101.1 kg (222 lb 12.8 oz) 2024 10:12 AM ARMATURE TESTER Height - - Body Mass Index - - Plan of Treatment Upcoming Encounters Date Type Department Care Team (Late st Contact Info) Description 11/17/2024 9:00 AM ARMATURE TESTER Office Visit [facility] - Rheumatology [address] [place] [address], [address] [place] [address] Johnson Jhaveri MD [address] [place] [address] [address] [place] [address] Health Maintenance Due Date Last Done Comments COLOGUARD (AGES 45-75) - COL ON CA SCREENING 1979 COLON MONITORING 1979 COLONOSCOPY - COLON CA SCREENING 1979 CT COLONOGRAPHY - COLON CA SCREENING 1979 Colorectal Cancer Screening 1979 FIT - COLON CA SCREENING 1979 FLEX SIG - COLON CA SCREENING 1979 HIV SCREENING 1994 HEPATITIS C SCREENING 08/14/1997 DTAP/TDAP/TD VACCINES (1 - Tdap) 1998 HEPATITIS B VACCINE (1 of 3 - 19+ 3-dose series) 1998 COVID-19 VACCINE (1 - 2023-2 5 season) 2024 INFLUENZA VACCINE (#1) 2024 2, 10/18/2021, 10/14/2014 DEPRESSION SCREENING 10/14/2024 ZOSTER VACCINE (1 of 2) 2029 HIB VACCINE Aged Out No longer eligi ble based on patient's age to complete this topic HPV VACCINE Aged Out No longer eligi ble based on patient's age to complete this topic MENINGOCOCCAL (Group B) VACCINE Aged Out No longer eligible b ased on patient's age to complete this topic MENINGOCOCCAL VACCINE Aged Out No aliya armando eligible based on patient's age to complete this topic PNEUMOCOCCAL VACCINE Aged Out No long er eligible based on patient's age to complete this topic Procedures Procedure Name Priority Date/Time Associated Diagnosis Comments ERYTHROCYTE SEDIMENTATION RATE Routine 10/16/2024 2:20 PM ARMATURE TESTER Polyarthralgia Raynaud's syndrome without gangrene Cervicalgia Encounter for long-term (current) use of high-risk medication CYCLIC CITRULLINATED PEPTIDE(CCP) AB IGG Routine 10/16/2024 2:20 PM ARMATURE TESTER Polyarthralgia Raynaud's syndrome without gangrene Cervicalgia Encounter for long-term (current) use of high-risk medication C-REACTIVE PROTEIN Routine 10/16/2024 2: 20 PM ARMATURE TESTER Polyarthralgia Raynaud's syndrome without gangrene Cervicalgia Encounter for long-term (current) use of high-risk medication CK BLOOD Routine 10/16/2024 2:20 PM ARMATURE TESTER Polyarthralgia Raynaud's syndrome without gangrene Cervicalgia Encounter for long-term (current) use of high-risk medication ANGIOTENSIN CONVERTING ENZYME BLOOD Routine 10/16/2024 2:20 PM ARMATURE TESTER Polyarthralgia Raynaud's syndrome without gangrene Cervicalgia Encounter for long-term (current) use of high-risk medication FERRITIN Routine 10/16/2024 2:17 PM ARMATURE TESTER Polyarthralgia Raynaud's syndrome without gangrene Cervicalgia Encounter for long-term (current) use of high-risk medication SS-A (SJOGREN'S) ANTIBODY Routine 2024 2:17 PM ARMATURE TESTER Polyarthralgia Raynaud's syndrome without gangrene Cervicalgia Encounter for long-term (current) use of high-risk medication ANCA SCREEN W MPO+PR3 W REFEX ANCA TITER Routine 10/16/2024 2:16 PM ARMATURE TESTER Polyarthralgia Raynaud's syndrome without gangrene Cervicalgia Encounter for long-term (current) use of high-risk medication THIOPURINE METHYLTRANSFERASE Routine 10/16/2024 2:16 PM ARMATURE TESTER Polyarthralgia Raynaud's syndrome without gangrene Cervicalgia Encounter for long-term (current) use of high-risk medication URIC ACID BLOOD Routine 10/16/2024 2:16 PM ARMATURE TESTER Polyarthralgia Raynaud's syndrome without gangrene Cervicalgia Encounter for long-term (current) use of high-risk medication SS-B (SJOGREN'S) ANTIBODY Routine 2024 2:16 PM ARMATURE TESTER Polyarthralgia Raynaud's syndrome without gangrene Cervicalgia Encounter for long-term (current) use of high-risk medication HLA TYPING B27 Routine 10/16/2024 2:16 PM ARMATURE TESTER Polyarthralgia Raynaud's syndrome without gangrene Cervicalgia Encounter for long-term (current) use of high-risk medication XR CERVICAL SPINE 2 OR 3VW Routine 10/16/2024 Polyarthralgia XR HAND BILAT 2VW Routine 10/16/2024 Polyarthralgia XR SHOULDER BILAT 2VW OR MORE Routine 10/16/2024 Polyarthralgia from Last 3 Months Results * C-REACTIVE PROTEIN (10/16/2024 2:20 PM ARMATURE TESTER) Pathologist [facility] C-Reactive Protein 7.7 <8.0 mg/L [facility] Comment: Test Performed at: [facility] [place], [place] ??[phone] FRANKLIN MCGEE MD Blood BLOOD SPECIMEN / Unknown 10/16/2024 2:20 PM ARMATURE TESTER 10/16/2024 2:20 PM ARMATURE TESTER Johnson Jhaveri MD LAB - CHEMISTRY MANPREET FOSTER Performing Organization Address [facility] Co de Phone Number [facility] [phone] [place] [address] * ANGIOTENSIN CONVERTING ENZYME BLOOD (10/16/2024 2:20 PM ARMATURE TESTER) Pathologist [facility] Angiotensin-Conv erting Enzyme 40 9 - 67 U/L [facility] Comment: Test Performed at: [facility] [place], [place] ??[phone] FRANKLIN MCGEE MD Blood BLOOD SPECIMEN / Unknown 10/16/2024 2:20 PM ARMATURE TESTER 10/16/2024 2:20 PM ARMATURE TESTER Johnson Jhaveri MD LAB - CHEMISTRY MANPREET FOSTER Performing Organization Address City/[facility]/ZIP Co de Phone Number [facility] [address] [place] [address] * CYCLIC CITRULLINATED PEPTIDE(CCP) AB IGG (10/16/2024 2:20 PM ARMATURE TESTER) Pathologist [facility] Cyclic Citrullinated Peptide Antibody IgG <16 UNITS [facility] Comment: Reference Range Negative: ?<20 Weak Positive: ? 20-39 Moderate Positive: ?? 40-59 Strong Positive: ? >59 Test Performed at: [facility] [address] [place], [place] ??[phone] FRANKLIN MCGEE MD Blood BLOOD SPECIMEN / Unknown 10/16/2024 2:20 PM ARMATURE TESTER 10/16/2024 2:20 PM ARMATURE TESTER Johnson Jhaveri MD LAB - CHEMISTRY ORDE CRISTIAN Performing Organization Address [facility] Co de Phone Number [facility] [phone] [place] [address] * (ABNORMAL) ERYTHROCYTE SEDIMENTATION RATE (10/16/2024 2:20 PM ARMATURE TESTER) Erythrocyte Sedimentation Rate Westergren 17(H) < OR = 15 mm/h [facility] Comment: Test Performed at: [facility] [place] [address] [place] [address] ??[phone] FRANKLIN MCGEE MD Blood BLOOD SPECIMEN / Unknown 10/16/2024 2:20 PM ARMATURE TESTER 10/16/2024 2:20 PM ARMATURE TESTER Johnson Jhaveri MD LAB - HEMATOLOGY ORD ERABLES Performing Organization Address [facility] Co de Phone Number [facility] [address] [place] [address] * CK BLOOD (10/16/2024 2:20 PM ARMATURE TESTER) CK 80 44 - 196 U/L [facility] Comment: Test Performed at: [facility] [address] [place], [place] ??[phone] FRANKLIN MCGEE MD Blood BLOOD SPECIMEN / Unknown 10/16/2024 2:20 PM ARMATURE TESTER 10/16/2024 2:20 PM ARMATURE TESTER Johnson Jhaveri MD LAB - CHEMISTRY ORDTim FOSTER Performing Organization Address [facility] Co de Phone Number [facility] [address] [place] [address] * SS-A (SJOGREN'S) ANTIBODY (10/16/2024 2:17 PM ARMATURE TESTER) [facility] Sjogren's Antibodies (SSA) <1.0 NEG <1.0 NEG AI [facility] Comment: Test Performed at: [facility] [address] [place], [place] ??[phone] FRANKLIN MCGEE MD Blood BLOOD SPECIMEN / Unknown 10/16/2024 2:17 PM ARMATURE TESTER 10/16/2024 2:19 PM ARMATURE TESTER Johnson Jhaveri MD LAB - CHEMISTRY MANPREET FOSTER Performing Organization Address [facility]/ZIP Co de Phone Number [facility] [address] [place] [address] * (ABNORMAL) FERRITIN (10/16/2024 2:17 PM ARMATURE TESTER) [facility] Ferritin 23(L) 38 - 380 ng/mL [facility] Comment: Test Performed at: [facility] [address] [place], [place] ??[phone] FRANKLIN MCGEE MD Blood BLOOD SPECIMEN / Unknown 10/16/2024 2:17 PM ARMATURE TESTER 10/16/2024 2:19 PM ARMATURE TESTER Johnson Jhaveri MD LAB - CHEMISTRY MANPREET FOSTER Performing Organization Address [facility]/ZIP Co de Phone Number [facility] [address] [place] [address] * ANCA SCREEN W MPO+PR3 W REFEX ANCA TITER (10/16/2024 2:16 PM ARMATURE TESTER) [facility] ANCA Screen Negative Negative [facility] Comment: ANCA [...] >or=1.0 AI: Antibody Detected Autoantibodies to proteinase-3 (VT-3) are accepted as characteristic for granulomatosis with polyangiitis (GPA, Quan's), and are detectable in 95% of the histologically proven cases. The cytoplasmic IFA pattern, (c-ANCA), is based largely on autoantibody to VT-3 which serves as the primary antigen. These autoantibodies are present in active disease. Test Performed at: [facility] [id number] [place] [address] ??[phone] ELIEZER DELGADO MD,PHD Blood BLOOD SPECIMEN / Unknown 10/16/2024 2:16 PM ARMATURE TESTER 10/16/2024 2:16 PM ARMATURE TESTER Johnson Jhaveri MD LAB - CHEMISTRY MANPREET FOSTER [facility] [address] [place] [address] * URIC ACID BLOOD (10/16/2024 2:16 PM ARMATURE TESTER) Uric Acid 6.0 4.0 - 8.0 mg/dL [facility] Comment: Therapeutic target for gout patients: <6.0 mg/dL ?? Test Performed at: [facility] [address] [place], [place] ??[phone] FRANKLIN MCGEE MD Blood BLOOD SPECIMEN / Unknown 10/16/2024 2:16 PM ARMATURE TESTER 10/16/2024 2:16 PM ARMATURE TESTER Johnson Jhaveri MD LAB - CHEMISTRY MANPREET FOSTER Performing Organization Address [facility]/ZIP Co de Phone Number [facility] [address] [place] [address] * HLA TYPING B27 (10/16/2024 2:16 PM ARMATURE TESTER) HLA-B27 Antigen NEGATIVE NEGATIVE [facility] Comment: Test Performed at: [facility] [address] ??[phone] DYLLAN HURLEY Blood BLOOD SPECIMEN / Unknown 10/16/2024 2:16 PM ARMATURE TESTER 10/16/2024 2:16 PM ARMATURE TESTER Johnson Jhaveri MD LAB - CHEMISTRY MANPREET FOSTER Performing Organization Address [facility] Co de Phone Number [facility] [address] [place] [address] * SS-B (SJOGREN'S) ANTIBODY (10/16/2024 2:16 PM ARMATURE TESTER) Sjogren's Antibodies (SSB) <1.0 NEG <1.0 NEG AI [facility] Comment: Test Performed at: [facility] [address] [place], [place] ??[phone] FRANKLIN MCGEE MD Blood BLOOD SPECIMEN / Unknown 10/16/2024 2:16 PM ARMATURE TESTER 10/16/2024 2:16 PM ARMATURE TESTER Johnson Jhaveri MD LAB - CHEMISTRY MANPREET FOSTER Performing Organization Address [facility]/ZIP Co de Phone Number [facility] [address] [place] [address] * THIOPURINE METHYLTRANSFERASE (10/16/2024 2:16 PM ARMATURE TESTER) TPMT Activity 17 nmol/hr/mL RBC [facility] Comment: Reference Range for TPMT Activity: ?? >12 ? Normal ??4-12 ? Heterozygote or low metabolizer ?<4 ? Homozygote Deficient Range This test was developed and its analytical performance characteristics have been determined by [employer]. It has not been cleared or approved by FDA. This assay has been validated pursuant to the CLIA regulations and is used for clinical purposes. Test Performed at: [facility] [address] [place], [place] ??[phone] JSOHUA WILLAMS MD,PHD,BOB Blood BLOOD SPECIMEN / Unknown 10/16/2024 2:16 PM ARMATURE TESTER 10/16/2024 2:16 PM ARMATURE TESTER Johnson Jhaveri MD LAB - CHEMISTRY MANPREET FOSTER [facility] Organization Address City/State/[facility] de Phone Number [facility] [address] [place] [address] * XR Hand Bilat 2Vw (10/16/2024) Anatomical [...] Johnson Jhaveri MD DIAGNOSTIC IMAGING O RDERABLES from Last 3 Months Care Teams Marking Stitcher Relationship Specialty Start Date End Date Alton Seo MD [address] [place] [phone] PCP - General Family Medicine 10/02/24
--- OUTSIDE RECORDS SUMMARY | 2024-10-24 12:29 | XMS_ITS | Encounter Summary ---
Author Organization [facility] Address [address] [place] [address]. [place], [place] [address] [place] [address] Care Team Providers Care Vice President For Philanthropy Name Role Phone Alton Seo MD Primary Care Provider [phone] Reason for Referral * Imaging (Routine) - Closed Specialty Diagnoses / Procedures Referred By Contac t Referred To Contact RADIOLOGY Diagnoses Screening for heart disease Procedures CT HEART DIAG CALCIUM SCORE Jairo Carpenter MD [address] [place] [address] Phone: tel: fax: Referral ID Status Reason Start Date Expiration Date Visits Re quested Visits Authorized [id number] Closed 06/04/2022 07/05/2023 1 1 Reason for Visit * Imaging (Routine) - Closed Specialty Diagnoses / Procedures Referred By Clive caballero Referred To Contact RADIOLOGY Diagnoses Screening for heart disease Procedures CT HEART DIAG CALCIUM SCORE Jairo Carpenter MD [address] [place] [address] Phone: tel: fax: Referral ID Status Reason Start Date Expiration Date Visits Re quested Visits Authorized [id number] Closed 06/04/2022 07/05/2023 1 1 Encounter Details Date Type Department Care Team (Late st Contact Info) Description 06/26/2022 4:00 PM CDT - 06/26/2022 11:59 PM CDT Hospital Encounter [facility] [place] [address] [place] [address] Jairo Carpenter MD [address] [place], [place] [id number] Discharge Disposition: Home or Self Care (Routine Discharge) Social History Tobacco Use Types Packs/Day Years Used Date Smoking Tobacco: Never Assessed Sex and Gender Information Value Date Recorded Sex Assigned at Not on file Legal Sex Male 8:35 PM CDT Gender Identity Not on file Sexual Orientation Not on file COVID-19 Exposure Response Date Recorded In the last 10 days, have yo u been in contact with someone who was confirmed or suspected to have Coronavirus/COVID-19? No / Unsure 06/26/2022 3:39 PM CDT documented as of this encounter Plan of Treatment Not on file documented as of this encounter Procedures Procedure Name Priority Date/Time Associated Diagnosis Comments CT HEART DIAG CALCIUM SCORE Routine 06/26/2022 5:10 PM CDT Screening for heart disease documented in this encounter Results * CT HEART DIAG CALCIUM SCORE (06/26/2022 5:10 PM CDT) Anatomical Region Laterality Modality Computed Tomogra phy 06/27/2022 12:4 1 AM CDT Impressions 06/27/2022 12:43 AM CDT IMPRESSION:===== 1. Total Score: 0 No plaque, very low risk, very unlikely for probability of significant CAD 2. ??Prominent main pulmonary arterial trunk and arteries compared to adjacent aorta raising suspicion for pulmonary artery hypertension. ??Clinical correlation recommended. 3. No abnormal pulmonary nodules in the visualized lungs. ??No acute thoracic abnormalities in the visualized chest. Referred By: JAIRO CARPENTER Interpreted By: Wild Ortiz MD, 06/27/2022 12:41 AM Narrative 06/27/2022 12:43 AM CDT EXAMINATION: Multislice Helical CT Coronary Calcium Scoring EXAM DATE/TIME: 06/26/2022 4:49 PM REASON FOR EXAM: Screening for ischemic heart disease COMPARISON: None TECHNIQUE: ??Multislice helical CT images of the proximal coronary arteries with a computer generated calcification score. Automated exposure control was utilized for dose reduction. Results: Left main: 0 ?LAD: 0 Circumflex: 0 ? Right coronary: 0 ?? Total Score: 0 ? Comments: No abnormal pulmonary nodules or masses in the visualized lung davis. ??Central airways are patent. ??Left aortic arch. ??Visualized thoracic aorta normal in caliber. ??Prominent main pulmonary arterial trunk raises suspicion for pulmonary hypertension. ??Mediastinal lymph nodes in [id number] and have normal appearance. ??No acute abnormalities in the visualized upper abdomen. ??No destructive osseous lesions in [id number]. Calcium score guidelines: Total Score* Calcium Plaque [place] ??*Risk ?*Probability of significant CAD 0 ?No Plaque ?Very Low ? Very unlikely 1-10 ?Minimal Plaque ? Low ?Unlikely 11-100 ?Mild Plaque ?Moderate ? Low likelihood of significant ? stenosis <50% ? 101-400 ? Moderate Plaque ?Moderately High ?Moderate likelihood of ? significant stenosis (>50%) Over 400 ?Extensive Plaque ? High ?High likelihood of ?significant stenosis (>50%) The amount of coronary artery calcification correlates with the severity of coronary atherosclerosis and the probability of future significant event. Calcification is not site specific for stenosis and does not identify non-calcified atherosclerotic plaque, but rather indicates the extent of atherosclerosis in the coronary arteries overall. The score may be used as an indicator for risk factor modification or additional cardiac testing. Significant change in calcium score over time may be indicative of subsequent disease development or useful as a benchmark to assess preventative programs. ===== Procedure Note Wild Ortiz MD - 06/27/2022 EXAMINATION: Multislice Helical CT Coronary Calcium Scoring EXAM DATE/TIME: 06/26/2022 4:49 PM REASON FOR EXAM: Screening for ischemic heart disease COMPARISON: None TECHNIQUE: Multislice helical CT images of the proximal coronary arterieswith a computer generated calcification score. Automated exposure controlwas utilized for dose reduction. Results: Left main: 0 LAD: 0 Circumflex: 0 Right coronary: 0 Total Score: 0 Comments: No abnormal pulmonary nodules or masses in the visualized lungfields. Central airways are patent. Left aortic arch. Visualizedthoracic aorta normal in caliber. Prominent main pulmonary arterial trunkraises suspicion for pulmonary hypertension. Mediastinal lymph nodes [id number] and have normal appearance. No acute abnormalities in thevisualized upper abdomen. No destructive osseous lesions [id number]. Calcium score guidelines: Total Score* Calcium Plaque [place] *Risk *Probability ofsignificant CAD 0 No Plaque Very LowVery unlikely 1-10 Minimal Plaque LowUnlikely 11-100 Mild Plaque ModerateLow likelihood of significant stenosis <50% 101-400 Moderate Plaque Moderately HighModerate likelihood of significant stenosis (>50%) Over 400 Extensive Plaque HighHigh likelihood of significant stenosis (>50%) The amount of coronary artery calcification correlates with the severityof coronary atherosclerosis and the probability of future significantevent. Calcification is not site specific for stenosis and does not identify non- calcifiedatherosclerotic plaque, but rather indicates the extent of atherosclerosisin the coronary arteries overall. The score may be used as an indicator for risk factor modification oradditional cardiac testing. Significant change in calcium score over timemay be indicative of subsequent disease development or useful as a benchmark to assess preventativeprograms. ===== IMPRESSION:===== 1. Total Score: 0 No plaque, very low risk, very unlikely for probabilityof significant CAD 2. Prominent main pulmonary arterial trunk and arteries compared toadjacent aorta raising suspicion for pulmonary artery hypertension.Clinical correlation recommended. 3. No abnormal pulmonary nodules in the visualized lungs. No acutethoracic abnormalities in the visualized chest. Referred By: JAIRO CAPRENTER Interpreted By: Wild Ortiz MD, 06/27/2022 12:41 AM us Jairo Carpenter MD CT Final Res ult documented in this encounter Visit Diagnoses Diagnosis Screening for heart disease Screening for other and unspecified cardiovascular conditions documented in this encounter Care Teams Vice President For Philanthropy Relationship Specialty Start Date End Date Alton Seo MD PCP - General HOSPITALIST 06/04/22 documented as of this encounter
--- OUTSIDE RECORDS SUMMARY | 2024-10-24 12:29 | XMS_ITS | Encounter Summary ---
Author Organization [facility] Address [address] [place] [address]. [place], [place] [address] [place] [address] Care Team Providers Care Paperboard Machine Operator Name Role Phone Unavailable Primary Care Provider Unavailabl e Encounter Details Date Type Department Care Team (Late st Contact Info) Description 02/26/[address] [facility] [place] [address] , Milagro Uribe MD Social History Tobacco Use Types Packs/Day Years Used Date Smoking Tobacco: Never Assessed Sex and Gender Information Value Date Recorded Sex Assigned at Not on file Legal Sex Male 8:35 PM CDT Gender Identity Not on file Sexual Orientation Not on file documented as of this encounter Plan of Treatment Not on file documented as of this encounter Visit Diagnoses Not on filedocumented in this encounter
--- OUTSIDE RECORDS SUMMARY | 2024-10-24 12:29 | XMS_ITS | Continuity of Care Document ---
Author Organization [place] - [facility] Pulmonology [place] Address [facility] [address] Care Team Providers Care Railroad Accountant Name Role Phone ALTON SEO Primary Care Provider Assessment Encounter Date Assessment Date Assessment LastModified by Organization Details LastModified Time 08/17/2024 08/17/2024 Assessment: Mild OSAHS, AHI = 8 Hypoventilation Plan: The following were reviewed and explained to the patient: [facility] home sleep study 04/30/24 AHI = 2, disproportionate O2 desaturation [facility] diagnostic sleep study 06/03/24 sleep onset = 20.5 minutes, REM onset = 121 minutes, AHI = 8, supine AHI = 9, REM AHI = 25, PLMI = 0.0 [facility] titration sleep study 06/17/24 sleep onset = 37 minutes, REM onset = 112.5 minutes, [employer] large Yanique nasal mask @ 9 cmH2O, [...] carrier. Patient will setup an appointment with [facility] for supplies and pressure adjustments. A major [...] August 2025 [email or web address] Not available 08/17/2024 09:13:43 Plan of Treatment Reminders Order Date Submit Date Provider Last Modified By Organization Details Last Modified Time Details Appointments Follow Up 2024 09:30A M Alton Seo MD Not available Not available Not available Any 15 2024 07:30A M Jeronimo Cardona MD Not available Not available Not available Lab None recorded . Referral None recorded . Procedures None recorded . Surgeries None recorded . Imaging None recorded . Medication Orders None recorded . Patient TargetsNo targets recorded. Patient InstructionsNo instructions recorded. Reason for Referral None Reported. Results Created Date Observation Date Name Description Value Unit Range Abnormal Flag Note LastModifiedBy Organization Detail LastModifiedTime 07/29/20 24 07/29/2024 US, doppl er echoc ardio gram No observ ation record ed. [address], [place], [address], 09/21/2024 17:54:41 08/02/20 24 08/01/2024 CT, abdom en + pelvi s, w/ contr ast No observ ation record ed. [email or web address] [facility] [address], [place], [address], 09/21/2024 17:54:41 10/16/19 25 10/16/2024 XR, shoul pavithra, 2 or more view No observ ation record ed. [email or web address] [facility] [address], [place], [address], 10/20/2024 10:48:08 10/16/19 25 10/16/2024 XR, hand, 3 or more view No observ ation record ed. [address] [facility] [address], [place], [address], 10/20/2024 10:49:45 10/16/19 25 10/16/2024 XR, cervi cuca spine , 4 or 5 view No observ ation record ed. [address] [facility] [address], [place], [address], 10/20/2024 10:50:27 10/17/19 25 10/16/2024 XR, shoul pavithra, 2 or more view No observ ation record ed. [address] [facility] [address], [place], [address], 10/20/2024 10:53:53 10/17/19 25 10/17/2024 CT, abdom en + pelvi s, w/ contr ast No observ ation record ed. [address], [place], [address], 10/20/2024 10:54:31 Result Notes None recorded. Problems Name Problem SNOMED Code Status Onset Date Resolution Date Notes Provider Name and Address Organization Details Recorded Time Lateral epicondylitis 118806535 Active Not Available [facility] 3 17:44:47 Mixed anxiety and depressive disorder 768707807 Active 2017 Not Available [employer] 3 17:44:47 Gastroesophag eal reflux disease 694992030 Active Not Available [facility] 3 17:44:47 Raynaud's phenomenon 477673577 Active Not Available [facility] 3 17:44:47 Vitamin D deficiency 12895012 Active 2017 Not Available [facility] 3 17:44:47 Seasonal allergic rhinitis 199177726 Active Not Available [facility] 3 17:44:47 Recurrent herpes simplex 17664255 Active 2017 Not Available [facility] 3 17:44:47 Obesity 703757595 Active 2017 Not Available [facility] 3 17:44:48 Hyperlipidemi a 43061478 Active 2017 Not Available [facility] 3 17:44:48 Carpal tunnel syndrome 41918220 Active Not Available [facility] 3 17:44:48 Verruca plantaris 57164926 Active 2019 Not Available [facility] 3 17:44:48 Bilateral hearing loss 24742438 Active 2022 Not Available [facility] 3 17:44:48 Erectile dysfunction 795365617 Active 2022 Alton Seo MD [address], [place], [address] , [employer] [facility] [employer] [facility] 3 14:46:49 Chronic kidney disease stage 3 292417404 Active 2023 Alton Seo MD [address], [place], [address] , [employer] [facility] [employer] [facility] 4 10:45:44 Hypertensive disorder 00013022 Active 2023 Alton Seo MD [address], [place], [address] , [employer] [facility] [employer] [facility] 4 10:51:54 Irritable bowel syndrome 22395157 Active 2023 Alton Seo MD [address], [place], [address] , [employer] [facility] 4 10:53:57 Polyarthropat hy 75076691 Active 2023 Alton Seo MD [address], [place], [address] , [employer] [facility] [employer] [facility] 4 10:54:48 Obstructive sleep apnea syndrome 73279519 Active 2023 Jeronimo Cardona MD [address], [place], [address] , [employer] 4 10:33:02 Male hypogonadism 56576559 Active 2023 Alton Seo MD [address], [address], [address] , [employer] 4 11:44:51 Gastroenterit is 28502275 Active 2023 Alton Seo MD [address] [address], [place], [address] , [employer] 4 14:28:45 Irritable bowel syndrome with diarrhea 627422477 Active 2023 Jeny Sharma MD [address], [address] [address], [place], [address] , [employer] 4 12:02:46 Nausea 957301076 Active 2023 Alton Seo MD [address], [address], [address] , [employer] 4 14:20:36 Fatigue 45124364 Active 2023 Alton Seo MD [address], [address] , [employer] 4 14:28:58 Viral gastritis 245429743 Active 2023 Alton Seo MD [address], [address] , [employer] 4 14:29:10 Notes:Medical History: Depre ssion/Anxiety Left hearing loss Left tinnitus Rhinitis with postnasal drip Bruxism Obesity with mild OSAHS, AHI = 8, 06/03/24, on CPAP c/o IVRC Treatment-emergent central apneas Hypertension Hyperlipidemia T2DM [place] Cholelithiasis CKD ED Recurrent HSV infection Vit D deficiency Right CTS Procedure History: EGD 2015 Colonoscopy with polypectomies 2020 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 Procedures Surgical History Date Name Laterality Status Provider Name and Address Organization Details Recorded Time colonoscopy completed Ami Michael MA [employer] [facility] 06/09/2024 09:49:41 Endoscopy completed Ami Michael MA [place] [facility] 06/09/2024 09:49:53 Imaging Results None recorded. Procedure [...] DAILY NEEDED. RUB IN. DO NOT RINSE. 05/23 /2024 completed Not Available Not Available Not Available [...] Organization Details Last Updated DateTime 175.26 cm 33.2 kg/m2 607589. 28 g 98.4 [degF] 80 /min 95 % 95 % 120 mm[Hg] 74 mm[Hg] Colin Mccollum [facility] [employer] 08:53:18 Date Recorded Heart rate Respiratory rate Provider Alethea jaylan and Address Organization Details Last Updated DateTime 08/17/2024 80 /min 15 /min Jeronimo Cardona MD [address], [address], [place], [address], [employer] 08/17/2024 09:01:10 Social History Question Answer Notes LastModified by Organizat ion Details LastModified Time Tobacco Smoking Status Never Smoker Alton Seo MD [address] [facility], [place], [address], [employer] 04/24/2023 14:52:09 Do You Have An Advance Directive? No [id number] Information not available 12/12/2022 What Is Your Level Of Alcohol Consumption? None [id number] Information not available 12/12/2022 Do You Wear A Helmet When Biking? No [email or web address] Information not available 04/24/2023 What Is Your Level Of Caffeine Consumption? Moderate [email or web address] Information not available 04/24/2023 In The 14 Days Before Symptom Onset, Have You Had Close Contact With A Laboratory-confi rmed COVID-19 While That Case Was Ill? No [email or web address] Information not available 04/24/2023 In The 14 Days Before Symptom Onset, Have You Had Close Contact With A Person Who Is Under Investigation For COVID-19 While That Person Was Ill? No [email or web address] Information not available 04/24/2023 What Type Of Diet Are You Following? GLUTENFREE Information not available 04/24/2023 What Is The Highest Grade Or Level Of School You Have Completed Or The Highest Degree You Have Received? [id number] [email or web address] Information not available 04/24/2023 Do You Have An Electrostatic Air Filter? 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 No Information not available 04/24/2023 What Is The Fluoride Status Of Your Home? Unknown [email or web address] Information not available 04/24/2023 Are There Any Guns Present In Your Home? No [email or web address] Information not available 04/24/2023 Do You Have A Humidifier? Yes Information not available 05/11/2024 Do You Use Insect Repellent Routinely? Yes [email or web address] Information not available 04/24/2023 Where Do You Live? SingleLevelHouse [email or web address] Information not available 04/24/2023 Do You Have A Medical Power Of Hop Weigher? No [email or web address] Information not available 04/24/2023 Do You Have Moisture Problems In Your Home? No Information not available 05/11/2024 What Was The Date Of Your Most Recent Tobacco Screening? 06/09/2024 [email or web address] Information not available 06/09/2024 Do You Have Any Pets? No [email or web address] Information not available 04/24/2023 What Is Your Relationship Status? [id number] Information not available 12/12/2022 Do You Use Your Seat Belt Or Car Seat Routinely? Yes [email or web address] Information not available 04/24/2023 Do You Have Smoke And Carbon Monoxide Detectors In Your Home? Yes [email or web address] Information not available 04/24/2023 Are You Passively Exposed To Smoke? No [email or web address] Information not available 04/24/2023 Are There Any Smokers In Your House? No [email or web address] Information not available 04/24/2023 Do You Participate In Social Media? No [email or web address] Information not available 04/24/2023 Do You Feel Stressed (tense, Restless, Nervous, Or Anxious, Or Unable To Sleep At Night)? [id number] Information not available 04/24/2023 Do You Use Any Illicit Or Recreational Drugs? No [email or web address] Information not available 04/24/2023 Do You Use Sunscreen Routinely? Yes [email or web address] Information not available 04/24/2023 Has Tobacco Cessation Counseling Been Provided? No [email or web address] Information not available 04/24/2023 Have You Recently Traveled Abroad? No [email or web address] Information not available 04/24/2023 Are You Currently In School? No Information not available 04/24/2023 Do You Have Any Dietary Restrictions? No Information not available 04/24/2023 Do You Or Have You Ever Used Any Other Forms Of Tobacco Or Nicotine? No Information not available 04/24/2023 Sex: Male Functional Status Question Answer Note LastModified by Organizat ion Details LastModified Time What is your exercise level? Moderate [id number] Information not available 12/12/2022 Mental Status [...] Not available 05/04 18:28:25 Mother Anxiety disorder [email or web address] Not available 2022 14:52:15 Mother Depressive disorder Not available 2022 14:52:15 Mother Alzheimer's disease [email or web address] Not available 2023 11:35:36 Maternal Grandmother Diabetes mellitus [email or web address] Not available 2022 14:52:15 Maternal Grandmother Malignant [...] virus, quadrivalent, PF 2 completed Not Available [facility] 12/12/2022 17:46:16 influenza, unspecified formulation 5 completed Not Available [facility] 12/12/2022 17:46:16 Tdap 2 completed Not Available [facility] 12/12/2022 17:46:16 Influenza, split virus, quadrivalent, PF 2 completed Not Available [facility] 12/12/2022 17:46:16 Past Encounters Encounter ID Performer Location Encounter Start Date Encounter Closed Date Diagnosis/Indication Diagnosis SNOMED-CT Code Diagnosis ICD10 Code Diagnosis Note [id number] Jeronimo Cardona MD [facility] [address] [address] 08/17/2024 08:44:34 10/06/2024 14:12:03 Obstructive sleep apnea syndrome 80370107 G47.33 Health Concerns Section Related Observation LastModified by Organization Detai ls LastModified Time None Recorded Concern Status LastModified by Organization Details LastModified Time None Recorded Payers Encounter Date Sequence Insurance Name Policy Number Policy Gonzalez Covered Member ID Gonzalez Member ID Guarantor Name 08/17/2024 1 [facility] (XRY) [id number] Zeke Sandoval [id number] Zeke Sweet Solderrelldeion Notes Date Note Type Note Provider Name and Address Organization Details Recorded Time 08/17/2024 text/html Primary care/Ref erring provider: Alton Seo MD During the [facility] home sleep study on 04/30/24, AHI = 2. Oxygen however desaturated to <90% for 203.3 minutes. During the [facility] diagnostic sleep study on 06/03/24, sleep onset = 20.5 minutes, REM onset = 121 minutes, AHI = 8, supine AHI = 9, REM AHI = 25, PLMI = 0.0. During the [facility] titration sleep study on 06/17/24, sleep [...] condensation with water. The patient wears a [employer] large Yanique nasal mask without chin strap. [...] slight chance of dozing. Jeronimo Cardona MD [address] [place] [address], [address] [address], [place], [address], [facility] 08/17/2024 09:15:03
--- OUTSIDE RECORDS SUMMARY | 2024-10-24 12:29 | XMS_ITS | Encounter Summary ---
Author Organization [facility] Address [address] [place] [address]. [place], [place] [address] [place] [address] Care Team Providers Care Wooden Tank Erector Name Role Phone Unavailable Primary Care Provider Unavailabl e Encounter Details Date Type Department Care Team (Late st Contact Info) Description 02/19/[address] [facility] [place] [address] , Milagro Uribe MD Social History Tobacco [...]
--- OUTSIDE RECORDS SUMMARY | 2024-10-24 12:29 | XMS_ITS | Patient Health Record ---
Author Organization [facility] Address [address] [place] [address] Care Team Providers Care Tallier Name Role Phone Alton Seo Primary Care Provider UnavailMadison Ayala Unavailable [phone] [employer], Provider Unavailable Unavailab le Allergies No Known Allergies Reason For Referral No Information Medications Medication SIG (Take, Route, Frequency, Duration) Notes Start Date End Date Status Zoloft 100 MG 1 tab(s) orally once a day Active Wellbutrin XL 300 MG 1.5 tab(s) orally every 24 hours Active ZOLOFT 100 mg 1 tab(s) orally once a day Active WELLBUTRIN XL 300 mg/24 hours 1.5 tab(s) orally every 24 hours Active SILDENAFIL 50 mg 1 tab(s) orally Qday, PRN Active ZyrTEC Allergy 10 MG 1 tab(s) orally once a day Active VALTREX 500 mg 1 tab(s) orally once a day Active Protonix 20 MG 1 tab(s) orally once a day Active PROAIR HFA 90 MCG/INH 2 PUFF(S) INHALED EVERY 6 HOURS *Please review for potential replacement for e-prescription and drug interaction check* Active PROTONIX 20 mg 1 tab(s) orally once a day Active ZYRTEC 10 mg 1 tab(s) orally once a day Active Sildenafil Citrate 50 MG 1 tab(s) orally Qday, PRN Active Valtrex 500 MG 1 tab(s) orally once a day Active Immunizations Vaccine Route Administration Date Status Comme nts Covid 19 (Pfizer) Unknown 10/28/2020 Administered Covid 19 (Pfizer) Unknown 11/18/2020 Administered Social History Tobacco Use: Social History Observation Description Date Details (start date - stop date) Never Smoker NA - NA Smoking Smart Form: Question Answer Notes Are you a: never smoker Problems Problem Type SNOMED Code ICD Code Onset Dates Problem Status W/U Status Risk Notes Problem Shortness of breath (293994368) Shortness of breath (R06.02) Active confirmed Problem Lactose intolerance, unspecified (E73.9) Active confirmed Problem Major depression, single episode (70465861) Major depressive disorder, single episode, unspecified (F32.9) Active confirmed Problem Anxiety disorder (770067775) Anxiety disorder, unspecified (F41.9) Active confirmed Problem Chronic allergic conjunctivitis (61807276) Other chronic allergic conjunctivitis (H10.45) Active confirmed Problem Allergic rhinitis caused by pollen (disorder) (20427858) Allergic rhinitis due to pollen (J30.1) Active confirmed Problem Gastro-esophageal reflux disease without esophagitis (705751145) Gastro-esophageal reflux disease without esophagitis (K21.9) Active confirmed Problem Erectile dysfunction (disorder) (819266708) Male erectile dysfunction, unspecified (N52.9) Active confirmed Problem Food allergy (466292597) Allergy to other foods (Z91.018) Active confirmed Encounters Encounter Location Date Provider Diagnosis [address] [address] 03/28/2024 Provider Jose Allergic rhinitis due to pollen J30.1 and Gastro-esophageal reflux disease without esophagitis K21.9 Assessments Encounter Date Diagnosis (ICD Code) Assessment Notes Treatment Notes Treatment Clinical Notes Section Notes 03/28/2024 Allergic rhinitis due to pollen (ICD-10 - J30.1) 03/28/2024 Gastro-esophagea l reflux disease without esophagitis (ICD-10 - K21.9) Plan Of Treatment No Information Insurance Providers Payer Name Payer Address Payer Phone Subscriber Number Group Number Insured Name Patient Relationship to Insured Coverage Start Date Coverage End Date [facility] [id number] [place] [address] [id number] Zeke Sandoval Self - patient is the insured Medical (General) History Medical History History ICD Code Major depressive disorder, single episod e, unspecified F32.9 Anxiety disorder, unspecified F41.9 Gastro-esophageal reflux disease without esophagitis K21.9 Male erectile dysfunction, unspecified N 52.9 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
--- OUTSIDE RECORDS SUMMARY | 2024-10-24 12:29 | XMS_ITS | Encounter Summary ---
Author Organization [facility] Address [address] [place] [address]. [place], [place] [address] [place] [address] Care Team Providers Care Wound Care Technician Name Role Phone Alton Seo MD Primary Care Provider [phone] Encounter Details Date Type Department Care Team (Latest Contact Info) Description 06/26/2022 Travel Social History Tobacco Use Types Packs/Day Years [...] on filedocumented in this encounter Care Teams Wound Care Technician Relationship Specialty Start Date End Date Alton Seo MD PCP - General HOSPITALIST 06/04/22 documented as of this encounter
--- OUTSIDE RECORDS SUMMARY | 2024-10-24 12:29 | XMS_ITS | Encounter Summary ---
Author Organization [facility] Address [address] [place] [address]. [place], [place] [address] [place] [address] Care Team Providers Care Speech Therapy Teacher Name Role Phone Unavailable Primary Care Provider Unavailabl e Encounter Details Date Type Department Care Team (Late st Contact Info) Description 03/17/[address] [facility] [place] [address] , Milagro Uribe MD Social History Tobacco [...]
--- OUTSIDE RECORDS SUMMARY | 2024-10-24 12:29 | XMS_ITS | Patient Health Summary ---
Author Organization [facility] Address [address] [place] [address] Care Team Providers Care Washer Meat Name Role Phone Alton Seo MD Primary Care Provider [phone] Note from [facility],non-owned Affiliates and Associated Physician Practices is amultiple site organization consisting of ambulatory clinics and hospital sitesin [place], [place], [place] and [place]. This disclosure is being madepursuant to the Care Everywhere program and may not contain all information available regarding this patient. Last updated 18.[facility] Allergies No known active allergies Medications * Be aware that medications may not be up to date on this document. Alwaysverify current medications with the patient. * buPROPion XL 24hr (Wellbutrin-XL) 300 MG tablet Take 1 (one) tablet by mouth every morning * DULoxetine (Cymbalta) 60 MG capsule Take 1 (one) capsule by mouth once daily * valACYclovir (Valtrex) 500 MG tablet Take by mouth 2 times daily * pantoprazole EC (Protonix) 20 MG tablet Take 1 (one) tablet by mouth once daily * rosuvastatin (Crestor) 10 MG tablet Take 1 (one) tablet by mouth once daily * dapagliflozin propanediol (Farxiga) 10 MG tablet Take 1 (one) tablet by mouth every morning * albuterol HFA (Proventil; Ventolin; Proair) 108 (90 Base) MCG/ACT inhaler (Started 10/24/2023) Inhale 1 (one) puff by mouth as directed Active Problems No known active problems Social [...] Comments Blood Pressure 128/78 10/15/2024 10:12 AM MEDICAL SECRETARY RECEPTIONIST Pulse 75 10/15/2024 10:12 AM MEDICAL SECRETARY RECEPTIONIST Temperature 36.5 ??C (97.7 ??F) 10/15/2024 1 0:12 AM MEDICAL SECRETARY RECEPTIONIST Respiratory Rate 16 10/15/2024 10:1 2 AM MEDICAL SECRETARY RECEPTIONIST Oxygen Saturation 93% 10/15/2024 10: 12 AM MEDICAL SECRETARY RECEPTIONIST Inhaled Oxygen Concentration - - Weight 101.1 kg (222 lb 12.8 oz) 2024 10:12 AM MEDICAL SECRETARY RECEPTIONIST Height - - Body Mass Index - - Procedures * ERYTHROCYTE SEDIMENTATION RATE(Performed 10/16/2024) Performed for Polyarthralgia, Raynaud's syndrome without gangrene, Cervicalgia, Encounter for long-term (current) use of high-risk medication * CYCLIC CITRULLINATED PEPTIDE(CCP) AB IGG(Performed 10/16/2024) Performed for Polyarthralgia, Raynaud's syndrome without gangrene, Cervicalgia, Encounter for long-term (current) use of high-risk medication * C-REACTIVE PROTEIN(Performed 10/16/2024) Performed for Polyarthralgia, Raynaud's syndrome without gangrene, Cervicalgia, Encounter for long-term (current) use of high-risk medication * CK BLOOD(Performed 10/16/2024) Performed for Polyarthralgia, Raynaud's syndrome without gangrene, Cervicalgia, Encounter for long-term (current) use of high-risk medication * ANGIOTENSIN CONVERTING ENZYME BLOOD(Performed 10/16/2024) Performed for Polyarthralgia, Raynaud's syndrome without gangrene, Cervicalgia, Encounter for long-term (current) use of high-risk medication * FERRITIN(Performed 10/16/2024) Performed for Polyarthralgia, Raynaud's syndrome without gangrene, Cervicalgia, Encounter for long-term (current) use of high-risk medication * SS-A (SJOGREN'S) ANTIBODY(Performed 10/16/2024) Performed for Polyarthralgia, Raynaud's syndrome without gangrene, Cervicalgia, Encounter for long-term (current) use of high-risk medication * ANCA SCREEN W MPO+PR3 W REFEX ANCA TITER(Performed 10/16/2024) Performed for Polyarthralgia, Raynaud's syndrome without gangrene, Cervicalgia, Encounter for long-term (current) use of high-risk medication * THIOPURINE METHYLTRANSFERASE(Performed 10/16/2024) Performed for Polyarthralgia, Raynaud's syndrome without gangrene, Cervicalgia, Encounter for long-term (current) use of high-risk medication * URIC ACID BLOOD(Performed 10/16/2024) Performed for Polyarthralgia, Raynaud's syndrome without gangrene, Cervicalgia, Encounter for long-term (current) use of high-risk medication * SS-B (SJOGREN'S) ANTIBODY(Performed 10/16/2024) Performed for Polyarthralgia, Raynaud's syndrome without gangrene, Cervicalgia, Encounter for long-term (current) use of high-risk medication * HLA TYPING B27(Performed 10/16/2024) Performed for Polyarthralgia, Raynaud's syndrome without gangrene, Cervicalgia, Encounter for long-term (current) use of high-risk medication * XR CERVICAL SPINE 2 OR 3VW(Performed 10/16/2024) Performed for Polyarthralgia * XR HAND BILAT 2VW(Performed 10/16/2024) Performed for Polyarthralgia * XR SHOULDER BILAT 2VW OR MORE(Performed 10/16/2024) Performed for Polyarthralgia Results * C-REACTIVE PROTEIN (10/16/2024 2:20 PM MEDICAL SECRETARY RECEPTIONIST) C-Reactive Protein 7.7 <8.0 mg/L [facility] Comment: Test Performed at: [facility] [address] [address] ??[id number] FRANKLIN MCGEE MD Blood BLOOD SPECIMEN / Unknown 10/16/2024 2:20 PM MEDICAL SECRETARY RECEPTIONIST 10/16/2024 2:20 PM MEDICAL SECRETARY RECEPTIONIST Johnson Jhaveri MD LAB - CHEMISTRY MANPREET FOSTER [address] [address] * ANGIOTENSIN CONVERTING ENZYME BLOOD (10/16/2024 2:20 PM MEDICAL SECRETARY RECEPTIONIST) Angiotensin-Conv erting Enzyme 40 9 - 67 U/L [facility] Comment: Test Performed at: [facility] [address] [place] [address] ??[phone] FRANKLIN MCGEE MD Blood BLOOD SPECIMEN / Unknown 10/16/2024 2:20 PM MEDICAL SECRETARY RECEPTIONIST 10/16/2024 2:20 PM MEDICAL SECRETARY RECEPTIONIST Johnson Jhaveri MD LAB - CHEMISTRY MANPREET FOSTER Performing Organization Address [facility] de Phone Number [address] [address] * CYCLIC CITRULLINATED PEPTIDE(CCP) AB IGG (10/16/2024 2:20 PM MEDICAL SECRETARY RECEPTIONIST) Pathologist [facility] Cyclic Citrullinated Peptide Antibody IgG <16 UNITS [facility] Comment: Reference Range Negative: ?<20 Weak Positive: ? 20-39 Moderate Positive: ?? 40-59 Strong Positive: ? >59 Test Performed at: [facility] [address] [place] [address] ??[phone] FRANKLIN MCGEE MD Blood BLOOD SPECIMEN / Unknown 10/16/2024 2:20 PM MEDICAL SECRETARY RECEPTIONIST 10/16/2024 2:20 PM MEDICAL SECRETARY RECEPTIONIST Johnson Jhaveri MD LAB - CHEMISTRY MANPREET FOSTER Performing Organization Address [facility] Co de Phone Number [facility] [id number] [place] [address] * (ABNORMAL) ERYTHROCYTE SEDIMENTATION RATE (10/16/2024 2:20 PM MEDICAL SECRETARY RECEPTIONIST) Pathologist [facility] Erythrocyte Sedimentation Rate Westergren 17(H) < OR = 15 mm/h [facility] Comment: Test Performed at: [facility] ??[phone] FRANKLIN MCGEE MD Blood BLOOD SPECIMEN / Unknown 10/16/2024 2:20 PM MEDICAL SECRETARY RECEPTIONIST 10/16/2024 2:20 PM MEDICAL SECRETARY RECEPTIONIST Johnson Jhaveri MD LAB - HEMATOLOGY ORD ERABLES Performing Organization Address [facility] Co de Phone Number [facility] [id number] [place] [address] * CK BLOOD (10/16/2024 2:20 PM MEDICAL SECRETARY RECEPTIONIST) CK 80 44 - 196 U/L [facility] Comment: Test Performed at: [employer] [facility] [place] [place] ??[phone] FRANKLIN MCGEE MD Blood BLOOD SPECIMEN / Unknown 10/16/2024 2:20 PM MEDICAL SECRETARY RECEPTIONIST 10/16/2024 2:20 PM MEDICAL SECRETARY RECEPTIONIST Johnson Jhaveri MD LAB - CHEMISTRY ORDTim FOSTER Performing Organization Address [facility] Co de Phone Number [facility] [address] [place] [address] * SS-A (SJOGREN'S) ANTIBODY (10/16/2024 2:17 PM MEDICAL SECRETARY RECEPTIONIST) Sjogren's Antibodies (SSA) <1.0 NEG <1.0 NEG AI [facility] Comment: Test Performed at: [employer] [place], [place] ??[phone] FRANKLIN MCGEE MD Blood BLOOD SPECIMEN / Unknown 10/16/2024 2:17 PM MEDICAL SECRETARY RECEPTIONIST 10/16/2024 2:19 PM MEDICAL SECRETARY RECEPTIONIST Johnson Jhaveri MD LAB - CHEMISTRY ORDTim FOSTER Performing Organization Address [facility] Co de Phone Number [facility] [address] [place] [address] * (ABNORMAL) FERRITIN (10/16/2024 2:17 PM MEDICAL SECRETARY RECEPTIONIST) Ferritin 23(L) 38 - 380 ng/mL [facility] Comment: Test Performed at: [employer] [facility] [place] ??[phone] FRANKLIN MCGEE MD Blood BLOOD SPECIMEN / Unknown 10/16/2024 2:17 PM MEDICAL SECRETARY RECEPTIONIST 10/16/2024 2:19 PM MEDICAL SECRETARY RECEPTIONIST Johnson Jhaveri MD LAB - CHEMISTRY MANPREET FOSTER [facility] [address] [place] [address] * ANCA SCREEN W MPO+PR3 W REFEX ANCA TITER (10/16/2024 2:16 PM MEDICAL SECRETARY RECEPTIONIST) ANCA Screen Negative Negative [facility] Comment: ANCA [...] >or=1.0 AI: Antibody Detected Autoantibodies to proteinase-3 (MA-3) are accepted as characteristic for granulomatosis with polyangiitis (GPA, Quan's), and are detectable in 95% of the histologically proven cases. The cytoplasmic IFA pattern, (c-ANCA), is based largely on autoantibody to MA-3 which serves as the primary antigen. These autoantibodies are present in active disease. Test Performed at: [facility] [id number] [place] [address] ??[phone] ELIEZER DELGADO MD,PHD Blood BLOOD SPECIMEN / Unknown 10/16/2024 2:16 PM MEDICAL SECRETARY RECEPTIONIST 10/16/2024 2:16 PM MEDICAL SECRETARY RECEPTIONIST Johnson Jhaveri MD LAB - CHEMISTRY MANPREET FOSTER Performing Organization Address [facility] Co de Phone Number [facility] [address] [place] [address] * URIC ACID BLOOD (10/16/2024 2:16 PM MEDICAL SECRETARY RECEPTIONIST) Uric Acid 6.0 4.0 - 8.0 mg/dL [facility] Comment: Therapeutic target for gout patients: <6.0 mg/dL ?? Test Performed at: [facility] [address] [place], [place] ??[phone] FRANKLIN MCGEE MD Blood BLOOD SPECIMEN / Unknown 10/16/2024 2:16 PM MEDICAL SECRETARY RECEPTIONIST 10/16/2024 2:16 PM MEDICAL SECRETARY RECEPTIONIST Johnson Jhaveri MD LAB - CHEMISTRY MANPREET FOSTER Performing Organization Address [facility] Co de Phone Number [facility] [phone] [place] [address] * HLA TYPING B27 (10/16/2024 2:16 PM MEDICAL SECRETARY RECEPTIONIST) HLA-B27 Antigen NEGATIVE NEGATIVE [facility] Comment: Test Performed at: [facility] [address] ??[phone] DYLLAN HURLEY Blood BLOOD SPECIMEN / Unknown 10/16/2024 2:16 PM MEDICAL SECRETARY RECEPTIONIST 10/16/2024 2:16 PM MEDICAL SECRETARY RECEPTIONIST Johnson Jhaveri MD LAB - CHEMISTRY MANPREET FOSTER Performing Organization Address [facility] Co de Phone Number [facility] [address] [place] [address] * SS-B (SJOGREN'S) ANTIBODY (10/16/2024 2:16 PM MEDICAL SECRETARY RECEPTIONIST) Pathologist [facility] Sjogren's Antibodies (SSB) <1.0 NEG <1.0 NEG AI [facility] Comment: Test Performed at: [facility] [address] ??[phone] FRANKLIN MCGEE MD Blood BLOOD SPECIMEN / Unknown 10/16/2024 2:16 PM MEDICAL SECRETARY RECEPTIONIST 10/16/2024 2:16 PM MEDICAL SECRETARY RECEPTIONIST Johnson Jhaveri MD LAB - CHEMISTRY MANPREET FOSTER Performing Organization Address [facility] de Phone Number [facility] [phone] [place] [address] * THIOPURINE METHYLTRANSFERASE (10/16/2024 2:16 PM MEDICAL SECRETARY RECEPTIONIST) Pathologist [facility] TPMT Activity 17 nmol/hr/mL RBC [facility] Comment: Reference Range for TPMT Activity: ?? >12 ? Normal ??4-12 ? Heterozygote or low metabolizer ?<4 ? Homozygote Deficient Range This test was developed and its analytical performance characteristics have been determined by [employer]. It has not been cleared or approved by FDA. This assay has been validated pursuant to the CLIA regulations and is used for clinical purposes. Test Performed at: [facility] [address] [place], [place] ??[phone] JOSHUA WILLAMS MD,PHD,BOB Blood BLOOD SPECIMEN / Unknown 10/16/2024 2:16 PM MEDICAL SECRETARY RECEPTIONIST 10/16/2024 2:16 PM MEDICAL SECRETARY RECEPTIONIST Johnson Jhaveri MD LAB - CHEMISTRY MANPREET FOSTER Performing Organization Address [facility] Co de Phone Number [facility] [address] [place] [address] * XR Hand Bilat 2Vw (10/16/2024) Anatomical [...] Johnson Jhaveri MD DIAGNOSTIC IMAGING O RDERABLES Care Teams Washer Meat Relationship Specialty Start Date End Date Alton Seo MD [address] [place] [phone] PCP - General Family Medicine 10/02/24
--- OUTSIDE RECORDS SUMMARY | 2024-10-24 12:30 | XMS_ITS | Encounter Summary ---
Author Organization [employer] [facility] Address [address] 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> Procedures Ultrasound renal complete Taqueria Quarles DO [address] [facility] [address] [place] [address] Phone: tel: fax: Referral ID Status Reason Start Date Expiration Date V isits Requested Visits Authorized [id number] Pending Review 07/21/2024 07/21/2025 1 1 Encounter Details Date Type Department Care Team (Late st Contact Info) Description 07/21/2024 1:30 PM CDT Office Visit [email or web address] [address] [facility] [address] [place] [address] Taqueria Quarles DO [address] [facility] [address] [place] [id number] Stage 3 chronic kidney disease, not otherwise specified (HCC) (Primary Dx); Obstructive sleep apnea syndrome; Gastroesophageal reflux disease; Pure hypercholesterolemia , not otherwise specified; 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> Social History Tobacco Use Types Packs/Day Years Used Date Smoking Tobacco: Never Assessed Sex and Gender Information Value Date Recorded Sex Assigned at Not on file Legal Sex Male 12:39 PM EDT Gender Identity Not on file Sexual Orientation Not on file documented as of this encounter Last Filed Vital Signs Vital Sign Reading Time Taken Comments Blood Pressure 130/60 07/21/2024 2:15 PM CDT Pulse 86 07/21/2024 2:15 PM CDT Temperature 36.7 ??C (98 ??F) 07/21/2024 2:15 PM CDT Respiratory Rate 18 07/21/2024 2:15 PM CDT Oxygen Saturation 97% 07/21/2024 2:15 PM CDT Inhaled Oxygen Concentration - - Weight 101 kg (222 lb 4.8 oz) 07/21/2024 2:15 PM CDT Height - - Body Mass Index - - documented in this encounter Progress Notes * Taqueria Quarles DO - 07/21/2024 1:30 PM CDT Images from the original note were not included. CC: Alton Pham MD ASSESSMENT: Stage 3 chronic kidney disease without proteinuria, possibly related to prior salicylate use. Mild FABY GERD on PPI HLD on statin Polyneuropathy controlled on Duloxetine Anxiety on Welbutrin & thrapy PLAN: - no medication changes today - risk of CKD progression with PPI and salicylates has been discussed. - kidney ultrasound - labs including a 24 hour urine creatinine clearance. - Return in 2 months Thank you for allowing me to participate in the care of your patient. Sincerely, Taqueria Quarles DO SUBJECTIVE: Mr. Zeke Sandoval is a 43 y.o. WM with a PMHx of anxiety, morbid obesity, HLD, and stage 3a chronic kidney disease without proteinuria for which we follow. Routine labs in April found him to have a SCr of 1.6 mg/dL which would estimated GFR of about 50-60 mL/min. Spot urine albumin to creatinine ratio was normal. He has no clear cause of kidney function by history at this time. He previously used much salicylates. A 12 point review of systems is otherwise negative. 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 . EXAM: BP 130/60 Pulse 86 Temp 98 ??F Resp 18 Wt 222 lb 4.8 oz (101 kg) SpO2 97% NAD, alert and appropriate No JVD, moist oropharynx HRRR without murmur Lungs B CTA without expiratory wheezes Abdomen benign, nontender LE without edema Skin without petechae, purpura or livido Gait normal No focal neurologic deficits RESULTS: No lab exists for component: PTHINTACT No lab exists for component: IRON SATURATION Labs 05/12/24: Cr 1.29, BUN 15, K 3.9, Ca 9.6, Alt 24, VitD 41, LDL 93, Labs 04/21/24: Cr 1.58, BUN 13, K 3.8, Na 140, Bicarb 29, Ca 9.6, Labs 04/21/24: RPR nr, HIV nr, HAV Ab nr, HBV SAg nr, HBV Sab +, HCV Ab nr, ACR nl, . . CT chest WO 06/26/22: No plaque consistent with CAD. Thank you for allowing me to participate in the care of your patient. Sincerely, Taqueria Quarles DO documented in this encounter Plan of Treatment Upcoming Encounters Date Type Department Care Team (Late st Contact Info) Description 04/08/2025 12:30 PM CDT Office Visit [facility], [address] [address] Taqueria Quarles DO [address] [place] [phone] Scheduled Orders Name Type Priority Associated Diagnoses Orde r Schedule Ultrasound renal complete Imaging Routine Stage 3 chronic kidney disease, not otherwise specified (HCC) Obstructive sleep apnea syndrome Gastroesophageal reflux disease Pure hypercholesterolemia, not otherwise specified 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> Expected: 07/21/2024, Expires: 07/21/2025 Cystatin C w/GFR Lab Routine Stage 3 chronic kidney disease, not otherwise specified (HCC) Obstructive sleep apnea syndrome Gastroesophageal reflux disease Pure hypercholesterolemia, not otherwise specified 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> Expected: 07/21/2024, Expires: 08/21/2025 Vitamin D 25 hydroxy Lab Routine Stage 3 chronic kidney disease, not otherwise specified (HCC) Obstructive sleep apnea syndrome Gastroesophageal reflux disease Pure hypercholesterolemia, not otherwise specified 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> Expected: 07/21/2024, Expires: 08/21/2025 Urine Protein / creatinine ratio Lab Routine Stage 3 chronic kidney disease, not otherwise specified (HCC) Obstructive sleep apnea syndrome Gastroesophageal reflux disease Pure hypercholesterolemia, not otherwise specified 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> Expected: 07/21/2024, Expires: 08/21/2025 Urine Albumin / Creatinine Ratio Lab Routine Stage 3 chronic kidney disease, not otherwise specified (HCC) Obstructive sleep apnea syndrome Gastroesophageal reflux disease Pure hypercholesterolemia, not otherwise specified 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> Expected: 07/21/2024, Expires: 08/21/2025 Urinalysis with microscopic Lab Routine Stage 3 chronic kidney disease, not otherwise specified (HCC) Obstructive sleep apnea syndrome Gastroesophageal reflux disease Pure hypercholesterolemia, not otherwise specified 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> Expected: 07/21/2024, Expires: 08/21/2025 Magnesium Lab Routine Stage 3 chronic kidney disease, not otherwise specified (HCC) Obstructive sleep apnea syndrome Gastroesophageal reflux disease Pure hypercholesterolemia, not otherwise specified 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> Expected: 07/21/2024, Expires: 08/21/2025 Renal function panel Lab Routine Stage 3 chronic kidney disease, not otherwise specified (HCC) Obstructive sleep apnea syndrome Gastroesophageal reflux disease Pure hypercholesterolemia, not otherwise specified 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> Expected: 07/21/2024, Expires: 08/21/2025 CBC Lab Routine Stage 3 chronic kidney disease, not otherwise specified (HCC) Obstructive sleep apnea syndrome Gastroesophageal reflux disease Pure hypercholesterolemia, not otherwise specified 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> Expected: 07/21/2024, Expires: 08/21/2025 Urine Creatinine clearance, 24 hour Lab Routine Stage 3 chronic kidney disease, not otherwise specified (HCC) Obstructive sleep apnea syndrome Gastroesophageal reflux disease Pure hypercholesterolemia, not otherwise specified 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> Expected: 07/21/2024, Expires: 07/21/2025 C3 complement Lab Routine Stage 3 chronic kidney disease, not otherwise specified (HCC) Obstructive sleep apnea syndrome Gastroesophageal reflux disease Pure hypercholesterolemia, not otherwise specified 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> Expected: 07/21/2024, Expires: 08/21/2025 C4 complement Lab Routine Stage 3 chronic kidney disease, not otherwise specified (HCC) Obstructive sleep apnea syndrome Gastroesophageal reflux disease Pure hypercholesterolemia, not otherwise specified 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> Expected: 07/21/2024, Expires: 08/21/2025 Sedimentation Rate Lab Routine Stage 3 chronic kidney disease, not otherwise specified (HCC) Obstructive sleep apnea syndrome Gastroesophageal reflux disease Pure hypercholesterolemia, not otherwise specified 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> Expected: 07/21/2024, Expires: 08/21/2025 C-Reactive Protein Lab Routine Stage 3 chronic kidney disease, not otherwise specified (HCC) Obstructive sleep apnea syndrome Gastroesophageal reflux disease Pure hypercholesterolemia, not otherwise specified 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
--- OUTSIDE RECORDS SUMMARY | 2024-10-24 12:30 | XMS_ITS | Encounter Summary ---
Author Organization [facility] Address [address] [place], [place] [address] [place] [address] Phone Care Team Providers Care Respiratory Therapist Assistant Name Role Phone Alton Seo MD Primary Care Provider [phone] Encounter Details Date Type Department Care Team (Late st Contact Info) Description 10/01/2024 Orders Only [place] [facility] [address] [place] [address] Taqueria Quarles DO [address] [facility] 1 [place] [address] Social History Tobacco Use Types Packs/Day Years Used Date Smoking Tobacco: Never Assessed Sex and Gender Information Value Date Recorded Sex Assigned at Not on file Legal Sex Male 12:39 PM EDT Gender Identity Not on file Sexual Orientation Not on file documented as of this encounter Plan of Treatment Upcoming Encounters Date Type Department Care Team (Late st Contact Info) Description 04/08/2025 12:30 PM CDT Office Visit [place] [facility] [address] [place] [address] Taqueria Quarles DO [address] [facility] 1 [place] [address] documented as of this encounter Procedures Procedure Name Priority Date/Time Associated Diagnosis Comments REFLEXIVE URINE CULTURE (HC) Routine 10/01/2024 6:44 AM [facility] CYSTATIN C WITH EGFR Routine 10/01/2024 6:44 AM [facility] URINALYSIS, COMPLETE Routine 10/01/2024 6:44 AM [facility] PROTEIN / CREATININE RATIO, URINE Routine 10/01/2024 6:44 AM [facility] URINE ALBUMIN / CREATININE RATIO Routine 10/01/2024 6:44 AM [facility] VITAMIN D 25 HYDROXY Routine 10/01/2024 6:44 AM [facility] SEDIMENTATION RATE, AUTOMATED Routine 10/01/2024 6:44 AM [facility] CBC AND DIFFERENTIAL Routine 10/01/2024 6:44 AM [facility] C3 COMPLEMENT Routine 10/01/2024 6:44 AM [facility] C4 COMPLEMENT Routine 10/01/2024 6:44 AM [facility] C-REACTIVE PROTEIN Routine 10/01/2024 6: 44 AM [facility] MAGNESIUM Routine 10/01/2024 6:44 AM [facility] RENAL FUNCTION PANEL Routine 10/01/2024 6:44 AM [facility] documented in this encounter Results * Reflexive Urine Culture (10/01/2024 6:44 AM [facility]) Culture Result, Urine See order comments Comment:NO CULTURE INDICATED 10/01/2024 6:44 AM [facility] 10/01/2024 6:49 AM [facility] Narrative [facility] - 10/02/2024 11:30 AM [facility] COLLECTION KIT GIVEN TO PATIENT. PATIENT ADVISED TO RETURN. URINE VOLUME: NOTV Resulting Agency Comment Performing Organization Information: ?Site ID: [place] ?Name: [facility] ?Address: [address] [place] [address] ?Director: Viridiana Boss MD us Taqueria Quarles DO LAB [id number] NSOLICITED RESULTS Final Result Performing Organization Address [facility] de Phone Number [facility] See order comments [place] [address] * Protein, Total, Random Urine w/Creatinine (Protein/Creat Ratio) (10/01/2024 6:44 AM [facility]) Creatinine, Ur 129 20 - 320 mg/dL See order comments Urine Protein/Creatin ine Ratio 78 25 - 148 mg/g creat See order comments Protein/Creatin ine Ratio, Urine 0.078 0.025 - 0.148 mg/mg creat See order comments Protein Urine Random 10 5 - 25 mg/dL See order comments 10/01/2024 6:44 AM [facility] 10/01/2024 6:49 AM [facility] Narrative [facility] - 10/02/2024 11:30 AM [facility] COLLECTION KIT GIVEN TO PATIENT. PATIENT ADVISED TO RETURN. URINE VOLUME: NOTV Resulting Agency Comment Performing Organization Information: ?Site ID: [place] ?Name: [facility] [facility] ?Address: [facility] [place] [address] ?Director: Viridiana Boss MD us Taqueria Quarles DO LAB URINE ORDERABLES Final R esult Performing Organization Address [facility] de Phone Number [facility] See order comments [place] [address] * Vitamin D 25 Hydroxy (10/01/2024 6:44 AM [facility]) Vitamin D, 25-OH, Total, IA 37 30 - 100 ng/mL See order comments Comment: Vitamin D Status ? 25-OH Vitamin D: Deficiency: ?<20 ng/mL Insufficiency: ? 20 - 29 ng/mL Optimal: ? > or = 30 ng/mL For 25-OH Vitamin D testing on patients on D2-supplementation and patients for whom quantitation of D2 and D3 fractions is required, the QuestAssureD(TM) 25-OH VIT D, (D2,D3), LC/MS/MS is recommended: order code 24225 (patients >2yrs). See Note 1 Note 1 For additional information, please refer to http://education.[employer]/faq/XFI804 (This link is being provided for informational/ educational purposes only.) 10/01/2024 6:44 AM [facility] 10/01/2024 6:49 AM [facility] Narrative [facility] - 10/02/2024 11:30 AM [facility] COLLECTION KIT GIVEN TO PATIENT. PATIENT ADVISED TO RETURN. URINE VOLUME: NOTV Resulting Agency Comment Performing Organization Information: ?Site ID: [place] ?Name: [facility] ?Address: [address] [place] [address] ?Director: Viridiana Boss MD Taqueria Quarles DO LAB BLOOD ORDERABLES Final R esult LAUREN AMADOR See order comments [place] [address] * (ABNORMAL) Cystatin C w/GFR (10/01/2024 6:44 AM [facility]) Cystatin C 1.41(H) 0.52 - 1.27 mg/L See order comments eGFR 52(L) > OR = 60 mL/min/1.73 m2 See order comments 10/01/2024 6:44 AM [facility] 10/01/2024 6:49 AM [facility] Narrative [facility] - 10/02/2024 11:30 AM [facility] COLLECTION KIT GIVEN TO PATIENT. PATIENT ADVISED TO RETURN. URINE VOLUME: NOTV Resulting Agency Comment Performing Organization Information: ?Site ID: [place] ?Name: [facility] ?Address: [address] [place] [address] ?Director: Viridiana Boss MD us Taqueria Quarles DO LAB BLOOD ORDERABLES Final R esult Performing Organization Address [facility] Co de Phone Number [facility] See order comments [place] [address] * (ABNORMAL) C-Reactive Protein (10/01/2024 6:44 AM [facility]) CRP 12.9(H) <8.0 mg/L See order comments 10/01/2024 6:44 AM [facility] 10/01/2024 6:49 AM [facility] Narrative [facility] - 10/02/2024 11:30 AM [facility] COLLECTION KIT GIVEN TO PATIENT. PATIENT ADVISED TO RETURN. URINE VOLUME: NOTV Resulting Agency Comment Performing Organization Information: ?Site ID: [place] ?Name: [facility] ?Address: [address] [place] [address] ?Director: Viridiana Boss MD Taqueria Quarles DO LAB BLOOD ORDERABLES Final R esult Performing Organization Address [facility] de Phone Number [facility] See order comments [place] [address] * C4 Complement (10/01/2024 6:44 AM [facility]) Complement Component C4C 30 15 - 53 mg/dL See order comments 10/01/2024 6:44 AM [facility] 10/01/2024 6:49 AM [facility] Narrative [facility] - 10/02/2024 11:30 AM [facility] COLLECTION KIT GIVEN TO PATIENT. PATIENT ADVISED TO RETURN. URINE VOLUME: NOTV Resulting Agency Comment Performing Organization Information: ?Site ID: [place] ?Name: [facility] ?Address: [address] [place], [place] [address]ner [facility] [place] [address] ?Director: Viridiana Boss MD Taqueria Quarles DO LAB BLOOD ORDERABLES Final R esult Performing Organization Address [facility]/ZIP Co de Phone Number [facility] See order comments [place] [address] * C3 Complement (10/01/2024 6:44 AM [facility]) Pathologist [facility] Complement Component C3C 179 82 - 185 mg/dL See order comments 10/01/2024 6:44 AM [facility] 10/01/2024 6:49 AM [facility] Narrative [facility] - 10/02/2024 11:30 AM [facility] COLLECTION KIT GIVEN TO PATIENT. PATIENT ADVISED TO RETURN. URINE VOLUME: NOTV Resulting Agency Comment Performing Organization Information: ?Site ID: [place] ?Name: [facility] ?Address: [address] [address] ?Director: Viridiana Boss MD Taqueria Quarles DO LAB BLOOD ORDERABLES Final R esult Performing Organization Address [facility] Co de Phone Number [facility] See order comments [place] [address] * CBC and Differential (10/01/2024 6:44 AM [facility]) Pathologist [facility] WBC 6.6 3.8 - 10.8 Thousand/ uL See order comments RBC 4.59 4.20 - 5.80 Million/u L See order comments Hemoglobin 14.5 13.2 - 17.1 g/dL See order comments Hematocrit 44.1 38.5 - 50.0 % See order comments MCV 96.1 80.0 - 100.0 fL See order comments MCH 31.6 27.0 - 33.0 pg See order comments MCHC 32.9 32.0 - 36.0 g/dL See order comments Comment: For adults, a slight decrease in the calculated MCHC value (in the range of 30 to 32 g/dL) is most likely not clinically significant; however, it should be interpreted with caution in correlation with other red cell parameters and the patient's clinical condition. RDW 13.0 11.0 - 15.0 % See order comments Platelets 314 140 - 400 Thousand/ uL See order comments MPV 9.4 7.5 - 12.5 fL See order comments Neutrophils Absolute 3,346 1,500 - 7,800 cells/uL See order comments Band Neutrophils Absolute, Manual Count CANCELED 0 - 750 cells/uL See order comments Comment:Result canceled by t he ancillary. Metamyelocytes Absolute CANCELED 0 cells/uL See order comments Comment:Result canceled by t he ancillary. Absolute Myelocytes CANCELED 0 cells/uL See order comments Comment:Result canceled by t he ancillary. Absolute Promyelocytes CANCELED 0 cells/uL See order comments Comment:Result canceled by t he ancillary. Lymphocytes Absolute 2,640 850 - 3,900 cells/uL See order comments Monocytes Absolute 449 200 - 950 cells/uL See order comments Eosinophils Absolute 132 15 - 500 cells/uL See order comments Basophils Absolute 33 0 - 200 cells/uL See order comments Blasts Absolute CANCELED 0 cells/uL See order comments Comment:Result canceled by t he ancillary. NRBC Absolute CANCELED 0 cells/uL See order comments Comment:Result canceled by t he ancillary. Neutrophils Relative 50.7 % See order comments Bands Absolute CANCELED % See o rder comments Comment:Result canceled by t he ancillary. Metamyelocytes Percent CANCELED % See order comments Comment:Result canceled by t he ancillary. Myelocytes Relative CANCELED % See order comments Comment:Result canceled by t he ancillary. Promyelocytes Relative CANCELED % See order comments Comment:Result canceled by t he ancillary. Lymphocytes 40.0 % See orde r comments Variant lymphocytes/100 WBC (Bld) CANCELED 0 - 10 % See order comments Comment:Result canceled by t he ancillary. Monocytes 6.8 % See order comments Eosinophils 2.0 % See orde r comments Basophils Relative 0.5 % S ee order comments Blasts CANCELED % See order comments Comment:Result canceled by t he ancillary. nRBC CANCELED 0 /100 WBC See order comments Comment:Result canceled by t he ancillary. Comment(s) CANCELED See order comments Comment:Result canceled by t he ancillary. 10/01/2024 6:44 AM [facility] 10/01/2024 6:49 AM [facility] Narrative [facility] - 10/02/2024 11:30 AM [facility] COLLECTION KIT GIVEN TO PATIENT. PATIENT ADVISED TO RETURN. URINE VOLUME: NOTV Resulting Agency Comment Performing Organization Information: ?Site ID: ?Name[facility] ?Address: [facility] [place] [address] ?Director: Viridiana Boss Taqueria Quarles DO LAB BLOOD ORDERABLES Final R esult Performing Organization Address [facility] de Phone Number [facility] See order comments [place] [address] * (ABNORMAL) Sedimentation Rate (10/01/2024 6:44 AM [facility]) Sed Rate 24(H) < OR = 15 mm/h See order comments 10/01/2024 6:44 AM [facility] 10/01/2024 6:49 AM [facility] Narrative [facility] - 10/02/2024 11:30 AM [facility] COLLECTION KIT GIVEN TO PATIENT. PATIENT ADVISED TO RETURN. URINE VOLUME: NOTV Resulting Agency Comment Performing Organization Information: ?Site ID: ?Name: [facility] ?Address: [facility] [place] [address] ?Director: Viridiana Boss Taqueria Quarles DO LAB BLOOD ORDERABLES Final R esult Performing Organization Address [facility] de Phone Number [facility] See order comments [place] [address] * (ABNORMAL) Urinalysis, Complete w/reflex to Culture (10/01/2024 6:44 AM [facility]) Color, Urine YELLOW YELLOW See ord er comments Appearance Urine CLEAR CLEAR See order comments Specific [place], UA 1.017 1.001 - 1.035 See order comments pH Urine 6.0 5.0 - 8.0 See order comments Glucose, Ur 3+(A) NEGATIVE See orde r comments Bilirubin, Urine NEGATIVE NEGATIVE See order comments Ketones, Urine NEGATIVE NEGATIVE See o rder comments Hemoglobin Ur Ql Strip NEGATIVE NEGATIVE See order comments Protein, Ur NEGATIVE NEGATIVE See orde r comments Nitrite, Urine NEGATIVE NEGATIVE See o rder comments WBC Esterase Urine NEGATIVE NEGATIVE See order comments WBC, Urine NONE SEEN < OR = 5 /HPF See order comments RBC, Urine NONE SEEN < OR = 2 /HPF See order comments Epithelial Cells in Urine NONE SEEN < OR = 5 /HPF See order comments Trans Epithelial, Urine CANCELED < OR = 5 /HPF See order comments Comment:Result canceled by t he ancillary. Renal Epithelial Cells, Urine CANCELED < OR = 3 /HPF See order comments Comment:Result canceled by t he ancillary. Bacteria NONE SEEN NONE SEEN /HPF See order comments Calcium Oxalate Crystals, Urine CANCELED NONE OR FEW /HPF See order comments Comment:Result canceled by t he ancillary. Triple Phosphate Crystals, Urine CANCELED NONE OR FEW /HPF See order comments Comment:Result canceled by t he ancillary. Uric Acid Crystals, Urine CANCELED NONE OR FEW /HPF See order comments Comment:Result canceled by t he ancillary. Amorphous Sediments CANCELED NONE OR FEW /HPF See order comments Comment:Result canceled by t he ancillary. Crystals CANCELED NONE SEEN /HPF See order comments Comment:Result canceled by t he ancillary. Hyaline Casts, Urine NONE SEEN NONE SEEN /LPF See order comments Granular Casts, Urine CANCELED NONE SEEN /LPF See order comments Comment:Result canceled by t he ancillary. Casts CANCELED NONE SEEN /LPF See order comments Comment:Result canceled by t he ancillary. Yeast, UA CANCELED NONE SEEN /HPF See order comments Comment:Result canceled by t he ancillary. Comments CANCELED See order comments Comment:Result canceled by t he ancillary. Note: CANCELED See order comments Comment:Result canceled by t he ancillary. 10/01/2024 6:44 AM [facility] 10/01/2024 6:49 AM [facility] Narrative [facility] - 10/02/2024 11:30 AM [facility] COLLECTION KIT GIVEN TO PATIENT. PATIENT ADVISED TO RETURN. URINE VOLUME: NOTV Resulting Agency Comment Performing Organization Information: ?Site ID: [place] ?Name: [facility] ?Address: [address] [address] ?Director: Viridiana Boss MD us Taqueria Quarles DO LAB URINE ORDERABLES Final R esult Performing Organization Address [facility] de Phone Number [facility] See order comments [place] [address] * Urine Albumin / Creatinine Ratio (10/01/2024 6:44 AM [facility]) Creatinine, Ur 129 20 - 320 mg/dL See order comments Urine Microalbumin 0.2 See Note: mg/dL See order comments Comment: Reference Range: Reference Range Not established Microalb/Creat Ratio 2 <30 mg/g creat See order comments Comment: The ADA defines abnormalities in albumin excretion as follows: Albuminuria Category ?Result (mg/g creatinine) Normal to Mildly increased ?? <30 Moderately increased ? 30-299 Severely increased ? > OR = 300 The ADA recommends that at least two of three specimens collected within a 3-6 month period be abnormal before considering a patient to be within a diagnostic category. 10/01/2024 6:44 AM [facility] 10/01/2024 6:49 AM [facility] Narrative [facility] - 10/02/2024 11:30 AM [facility] COLLECTION KIT GIVEN TO PATIENT. PATIENT ADVISED TO RETURN. URINE VOLUME: NOTV Resulting Agency Comment Performing Organization Information: ?Site ID: [place] ?Name: [facility] ?Address: [id number] [place], [place] [address] [place] [address] ?Director: Viridiana Boss MD Taqueria Quarles DO LAB URINE ORDERABLES Final R esult Performing Organization Address [facility] de Phone Number [facility] See order comments [place] [address] * (ABNORMAL) Renal Function Panel (10/01/2024 6:44 AM [facility]) Glucose 115(H) 65 - 99 mg/dL See order comments Comment: ? Fasting reference interval For someone without known diabetes, a glucose value between 100 and 125 mg/dL is consistent with prediabetes and should be confirmed with a follow-up test. BUN 12 7 - 25 mg/dL See order comments Creatinine 1.42(H) 0.60 - 1.29 mg/dL See order comments eGFR CKD-EPI CR 2020 62 > OR = 60 mL/min/1.7 3m2 See order comments BUN/Creatinine Ratio 8 6 - 22 (calc) See order comments Sodium 141 135 - 146 mmol/L See order comments Potassium 3.7 3.5 - 5.3 mmol/L See order comments Chloride 104 98 - 110 mmol/L See order comments Bicarbonate (CO2) 27 20 - 32 mmol/L See order comments Calcium 9.2 8.6 - 10.3 mg/dL See order comments Phosphorus 4.4 2.5 - 4.5 mg/dL See order comments Albumin 4.2 3.6 - 5.1 g/dL See order comments 10/01/2024 6:44 AM [facility] 10/01/2024 6:49 AM [facility] Narrative [facility] - 10/02/2024 11:30 AM [facility] COLLECTION KIT GIVEN TO PATIENT. PATIENT ADVISED TO RETURN. URINE VOLUME: NOTV Resulting Agency Comment Performing Organization Information: ?Site ID: [place] ?Name: [facility] ?Address: [facility] [place] [address] ?Director: Viridiana Boss us Taqueria Quarles DO LAB BLOOD ORDERABLES Final R esult [facility] See order comments [place] [address] * Magnesium (10/01/2024 6:44 AM [facility]) Magnesium 2.4 1.5 - 2.5 mg/dL See order comments 10/01/2024 6:44 AM [facility] 10/01/2024 6:49 AM [facility] Narrative [facility] - 10/02/2024 11:30 AM [facility] COLLECTION KIT GIVEN TO PATIENT. PATIENT ADVISED TO RETURN. URINE VOLUME: NOTV Resulting Agency Comment Performing Organization Information: ?Site ID: [place] ?Name: [facility] ?Address: [facility] [place] [address] ?Director: Viridiana Boss us Taqueria Quarles DO LAB BLOOD ORDERABLES Final R esult [facility] See order comments [place] [address] documented in this encounter Visit Diagnoses Not on filedocumented in this encounter Care Teams Respiratory Therapist Assistant Relationship Specialty Start Date End Date Alton Seo MD [address] [place] [phone] PCP - General Family Medicine 04/28/24 documented as of this encounter
--- OUTSIDE RECORDS SUMMARY | 2024-10-24 12:30 | XMS_ITS | Encounter Summary ---
Author Organization [facility] Facility Address [address] [place] [address] Care Team Providers Care Boarding Mother Name Role Phone Alton Seo MD Primary Care Provider Encounter Details Date Type Department Care Team (Latest Contact Info) Description 07/14/2024 Travel Social History Tobacco Use Types Packs/Day [...] Description 04/08/2025 12:30 PM CDT Office Visit [facility], [address] [address] Taqueria Quarles, [address] [place] [phone] documented as of this encounter Visit Diagnoses Not on filedocumented in this encounter Care Teams Boarding Mother Relationship Specialty Start Date End Date Alton Seo MD [address] [place] [phone] PCP - General Family Medicine 04/28/24 documented as of this encounter
--- OUTSIDE RECORDS SUMMARY | 2024-10-24 12:30 | XMS_ITS | Clinical Summary ---
Author Organization [facility] Address [address] [place] [address] Care Team Providers Care Labor Arbitrator Hearing Office Name Role Phone Alton Seo MD Primary Care Provider [phone] Encounters Date Type Department Care Team Description 10/08/2024 1:00 PM [employer] Office Visit [facility], [address] [phone] Taqueria Quarles DO Stage 3 chronic kidney disease, not otherwise specified (HCC) (Primary Dx); Obstructive sleep apnea syndrome; Secondary inflammatory arthritis; Gastroesophageal reflux disease; Pure hypercholesterolemia , not otherwise specified; 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> 10/07/2024 Travel 10/05/2024 Orders Only [facility], [address] [phone] Taqueria Quarles DO 10/01/2024 Orders Only [facility] [address] [phone] Taqueria Quarles DO 07/29/2024 Documentation Only [facility] [address] [phone] Taqueria Quarles DO from Last 3 Months Social History Tobacco Use Types Packs/Day Years Used Date Smoking Tobacco: Never Assessed Sex and Gender Information Value Date Recorded Sex Assigned at Not on file Legal Sex Male 12:39 PM EDT Gender Identity Not on file Sexual Orientation Not on file Last Filed Vital Signs Vital Sign Reading Time Taken Comments Blood Pressure 122/80 10/08/2024 1:15 PM [employer] Pulse 81 10/08/2024 1:15 PM [employer] Temperature 36.1 ??C (97 ??F) 10/08/2024 1:15 PM [employer] Respiratory Rate 18 10/08/2024 1:15 PM [employer] Oxygen Saturation 99% 10/08/2024 1:15 PM [employer] Inhaled Oxygen Concentration - - Weight 98.8 kg (217 lb 12.8 oz) 10/08/2024 1:15 PM [employer] Height - - Body Mass Index - - Plan of Treatment Upcoming Encounters Date Type Department Care Team (Late st Contact Info) Description 04/08/2025 12:30 PM CDT Office Visit [facility] [employer], [address] [phone] [place] [address] [place] [phone] Health Maintenance Due Date Last Done Comments Pneumococcal Vaccine: Pediat rics (0 to 5 Years) and At-Risk Patients (6 to 64 Years) (1 of 2 - PCV) 1985 Hepatitis B Vaccine (1 of 3 - 19+ 3-dose series) 1998 Diabetes: Hemoglobin A1C 05/12/2024 Diabetes: Ophthalmology Exam 05/12/2024 Diabetes: Pedal Pulse Checked 05/12/2024 Diabetes: Sensory Foot Exam 05/12/2024 Diabetes: Visual Foot Exam 05/12/2024 Influenza Vaccine (#1) 2024 2, 10/18/2021, 10/14/2014 Procedures Procedure Name Priority Date/Time Associated Diagnosis Comments CREATININE, URINE, 24 HOUR Routine 10/05/2024 8:40 AM [employer] REFLEXIVE URINE CULTURE (HC) Routine 10/01/2024 6:44 AM [employer] PROTEIN / CREATININE RATIO, URINE Routine 10/01/2024 6:44 AM [employer] VITAMIN D 25 HYDROXY Routine 10/01/2024 6:44 AM [employer] CYSTATIN C WITH EGFR Routine 10/01/2024 6:44 AM [employer] C-REACTIVE PROTEIN Routine 10/01/2024 6: 44 AM [employer] C4 COMPLEMENT Routine 10/01/2024 6:44 AM [employer] C3 COMPLEMENT Routine 10/01/2024 6:44 AM [employer] CBC AND DIFFERENTIAL Routine 10/01/2024 6:44 AM [employer] SEDIMENTATION RATE, AUTOMATED Routine 10/01/2024 6:44 AM [employer] URINALYSIS, COMPLETE Routine 10/01/2024 6:44 AM [employer] URINE ALBUMIN / CREATININE RATIO Routine 10/01/2024 6:44 AM [employer] RENAL FUNCTION PANEL Routine 10/01/2024 6:44 AM [employer] MAGNESIUM Routine 10/01/2024 6:44 AM [employer] from Last 3 Months Results * Creatinine, urine, 24 hour (10/05/2024 8:40 AM [employer]) Creatinine in 24 hour Urine 1.70 0.50 - 2.15 g/24 h See order comments Comment:URINE VOLUME: 1600/2 4 10/05/2024 8:40 AM [employer] 10/05/2024 5:39 PM [employer] Narrative [facility] - 10/05/2024 11:38 PM [employer] SPLIT 10/01/2024 FROM [id number] Resulting Agency Comment Performing Organization Information: ?Site ID: ?Name: [facility] ?Address: [facility] [place] [address] ?Director: Viridiana Boss us Taqueria Quarles DO LAB URINE ORDERABLES Final R esult Performing Organization Address [facility] de Phone Number [facility] See order comments [place] [address] * Reflexive Urine Culture (10/01/2024 6:44 AM [employer]) Culture Result, Urine See order comments Comment:NO CULTURE INDICATED 10/01/2024 6:44 AM [employer] 10/01/2024 6:49 AM [employer] Narrative [facility] - 10/02/2024 11:30 AM [employer] COLLECTION KIT GIVEN TO PATIENT. PATIENT ADVISED TO RETURN. URINE VOLUME: NOTV Resulting Agency Comment Performing Organization Information: ?Site ID: [place] ?Name: [facility] ?Address: [address] [place], [place] [address] [place] [address] ?Director: Viridiana Boss MD us aTqueria Quarles DO LAB [id number] NSOLICITED RESULTS Final Result Performing Organization Address [facility] de Phone Number [facility] See order comments [place] [address] * (ABNORMAL) Cystatin C w/GFR (10/01/2024 6:44 AM [employer]) Cystatin C 1.41(H) 0.52 - 1.27 mg/L See order comments eGFR 52(L) > OR = 60 mL/min/1.73 m2 See order comments 10/01/2024 6:44 AM [employer] 10/01/2024 6:49 AM [employer] Narrative [facility] - 10/02/2024 11:30 AM [employer] COLLECTION KIT GIVEN TO PATIENT. PATIENT ADVISED TO RETURN. URINE VOLUME: NOTV Resulting Agency Comment Performing Organization Information: ?Site ID: [place] ?Name: [facility] ?Address: [address] [place], [place] [address] [address] ?Director: Viridiana Boss MD us Taqueria Quarles DO LAB BLOOD ORDERABLES Final R esult LAUREN AMADOR See order comments [place] [address] * (ABNORMAL) Urinalysis, Complete w/reflex to Culture (10/01/2024 6:44 AM [employer]) Color, Urine YELLOW YELLOW See ord er comments Appearance Urine CLEAR CLEAR See order comments Specific [place], UA 1.017 1.001 - 1.035 See order [...] CANCELED See order comments Comment:Result canceled by [facility]. Note: CANCELED See order comments Comment:Result canceled by [facility]. 10/01/2024 6:44 AM [employer] 10/01/2024 6:49 AM [employer] Narrative [facility] - 10/02/2024 11:30 AM [employer] COLLECTION KIT GIVEN TO PATIENT. PATIENT ADVISED TO RETURN. URINE VOLUME: NOTV Resulting Agency Comment Performing Organization Information: ?Site ID: [facility] ?Name: [facility] ?Address: [facility] [place] [address] ?Director: Viridiana Boss MD Taqueria Quarles DO LAB URINE ORDERABLES Final R Ad Dynamo Performing Organization Address [facility] de Phone Number [facility] See order comments [place] [address] * Protein, Total, Random Urine w/Creatinine (Protein/Creat Ratio) (10/01/2024 6:44 AM [employer]) Creatinine, Ur 129 20 - 320 mg/dL See order comments Urine Protein/Creatin ine Ratio 78 25 - 148 mg/g creat See order comments Protein/Creatin ine Ratio, Urine 0.078 0.025 - 0.148 mg/mg creat See order comments Protein Urine Random 10 5 - 25 mg/dL See order comments 10/01/2024 6:44 AM [employer] 10/01/2024 6:49 AM [employer] Narrative [facility] - 10/02/2024 11:30 AM [employer] COLLECTION KIT GIVEN TO PATIENT. PATIENT ADVISED TO RETURN. URINE VOLUME: NOTV Resulting Agency Comment Performing Organization Information: ?Site ID: SHIVAM ?Name: [facility] ?Address: [facility] [place] [address] ?Director: Viridiana Boss MD Taqueria Quarles DO LAB URINE ORDERABLES Final R esult Performing Organization Address City/[facility]/ZIP Co de Phone Number [facility] See order comments [place] [address] * Urine Albumin / Creatinine Ratio (10/01/2024 6:44 AM [employer]) Creatinine, Ur 129 20 - 320 mg/dL [...] within a diagnostic category. 10/01/2024 6:44 AM [employer] 10/01/2024 6:49 AM [employer] Narrative [facility] - 10/02/2024 11:30 AM [employer] COLLECTION KIT GIVEN TO PATIENT. PATIENT ADVISED TO RETURN. URINE VOLUME: NOTV Resulting Agency Comment Performing Organization Information: ?Site ID: [place] ?Name: [facility] ?Address: [address] [place] [address] ?Director: Viridiana Boss MD us Taqueria Quarles DO LAB URINE ORDERABLES Final R esult [facility] See order comments [place] [address] * Vitamin D 25 Hydroxy (10/01/2024 6:44 AM [employer]) Vitamin D, 25-OH, Total, IA 37 30 [...] D, (D2,D3), LC/MS/MS is recommended: order code 19441 (patients >2yrs). See Note 1 Note 1 For additional information, please refer to http://education.Verdezyne/faq/QEA754 (This link is being provided for informational/ educational purposes only.) 10/01/2024 6:44 AM [employer] 10/01/2024 6:49 AM [employer] Narrative [facility] - 10/02/2024 11:30 AM [employer] COLLECTION KIT GIVEN TO PATIENT. PATIENT ADVISED TO RETURN. URINE VOLUME: NOTV Resulting Agency Comment Performing Organization Information: ?Site ID: [place] ?Name: [facility] ?Address: [address] [facility] [address] ?Director: Viridiana Boss MD us Taqueria Quarles DO LAB BLOOD ORDERABLES Final R esult [facility] See order comments [place] [address] * (ABNORMAL) Sedimentation Rate (10/01/2024 6:44 AM [employer]) Sed Rate 24(H) < OR = 15 mm/h See order comments 10/01/2024 6:44 AM [employer] 10/01/2024 6:49 AM [employer] Narrative [facility] - 10/02/2024 11:30 AM [employer] COLLECTION KIT GIVEN TO PATIENT. PATIENT ADVISED TO RETURN. URINE VOLUME: NOTV Resulting Agency Comment Performing Organization Information: ?Site ID: ?Name: [facility] ?Address: [address] [place] [address] ?Director: Viridiana Boss us Taqueria Quarles DO LAB BLOOD ORDERABLES Final R esult [facility] See order comments [place] [address] * CBC and Differential (10/01/2024 6:44 AM [employer]) WBC 6.6 3.8 - 10.8 Thousand/ uL [...] by t he ancillary. 10/01/2024 6:44 AM [employer] 10/01/2024 6:49 AM [employer] Narrative [facility] - 10/02/2024 11:30 AM [employer] COLLECTION KIT GIVEN TO PATIENT. PATIENT ADVISED TO RETURN. URINE VOLUME: NOTV Resulting Agency Comment Performing Organization Information: ?Site ID: [place] ?Name: [facility] ?Address: [facility] [place] [address] ?Director: Viridiana Boss us Taqueria Quarles DO LAB BLOOD ORDERABLES Final R esult [facility] See order comments [place] [address] * C3 Complement (10/01/2024 6:44 AM [employer]) Complement Component C3C 179 82 - 185 mg/dL See order comments 10/01/2024 6:44 AM [employer] 10/01/2024 6:49 AM [employer] Narrative [facility] - 10/02/2024 11:30 AM [employer] COLLECTION KIT GIVEN TO PATIENT. PATIENT ADVISED TO RETURN. URINE VOLUME: NOTV Resulting Agency Comment Performing Organization Information: ?Site ID: [place] ?Name: [facility] ?Address: [facility] [place] [address] ?Director: Viridiana Boss MD Taqueria Quarles DO LAB BLOOD ORDERABLES Final R esult Performing Organization Address [facility] Co de Phone Number [facility] See order comments [place] [address] * C4 Complement (10/01/2024 6:44 AM [employer]) Complement Component C4C 30 15 - 53 mg/dL See order comments 10/01/2024 6:44 AM [employer] 10/01/2024 6:49 AM [employer] Narrative [facility] - 10/02/2024 11:30 AM [employer] COLLECTION KIT GIVEN TO PATIENT. PATIENT ADVISED TO RETURN. URINE VOLUME: NOTV Resulting Agency Comment Performing Organization Information: ?Site ID: [place] ?Name: [facility] ?Address: [facility] [place] [address] ?Director: Viridiana Boss MD us Taqueria Quarles DO LAB BLOOD ORDERABLES [facility] Performing Organization Address [facility] de Phone Number [facility] See order comments [place] [address] * (ABNORMAL) C-Reactive Protein (10/01/2024 6:44 AM [employer]) CRP 12.9(H) <8.0 mg/L See order comments 10/01/2024 6:44 AM [employer] 10/01/2024 6:49 AM [employer] Narrative [facility] - 10/02/2024 11:30 AM [employer] COLLECTION KIT GIVEN TO PATIENT. PATIENT ADVISED TO RETURN. URINE VOLUME: NOTV Resulting Agency Comment Performing Organization Information: ?Site ID: [place] ?Name: [facility] ?Address: [address] [place] [address] ?Director: Viridiana Boss MD Taqueria Quarles DO LAB BLOOD ORDERABLES Final R esult Performing Organization Address City/[facility] Co de Phone Number [facility] See order comments [place] [address] * Magnesium (10/01/2024 6:44 AM [employer]) Pathologist [facility] Magnesium 2.4 1.5 - 2.5 mg/dL See order comments 10/01/2024 6:44 AM [employer] 10/01/2024 6:49 AM [employer] Narrative [facility] - 10/02/2024 11:30 AM [employer] COLLECTION KIT GIVEN TO PATIENT. PATIENT ADVISED TO RETURN. URINE VOLUME: NOTV Resulting Agency Comment Performing Organization Information: ?Site ID: ?Name: [facility] ?Address: [facility] [place] [address] ?Director: Viridiana Boss Taqueria Quarles DO LAB BLOOD ORDERABLES Final R [facility] Performing Organization Address [facility] Co de Phone Number [facility] ST See order comments [place] [address] * (ABNORMAL) Renal Function Panel (10/01/2024 6:44 AM [employer]) Glucose 115(H) 65 - 99 mg/dL See [...] g/dL See order comments 10/01/2024 6:44 AM [employer] 10/01/2024 6:49 AM [employer] Narrative [facility] - 10/02/2024 11:30 AM [employer] COLLECTION KIT GIVEN TO PATIENT. PATIENT ADVISED TO RETURN. URINE VOLUME: NOTV Resulting Agency Comment Performing Organization Information: ?Site ID: [place] ?Name: [facility] ?Address: [facility] [address] [place] [address] ?Director: Viridiana Boss Taqueria Quarles DO LAB BLOOD ORDERABLES Final R esult Performing Organization Address City/State/[facility] Co de Phone Number [facility] See order comments [place] [address] from Last 3 Months Insurance [facility] [place] [facility] Care Teams Labor Arbitrator Hearing Office Relationship Specialty Start Date End Date Alton Seo MD [address] [place] [phone] PCP - General Family Medicine 04/28/24
--- OUTSIDE RECORDS SUMMARY | 2024-10-24 12:30 | XMS_ITS | Encounter Summary ---
Author Organization [facility] Address [address] [place] [address] Phone Care Team Providers Care Straight Line Edger Name Role Phone Alton Seo MD Primary Care Provider [phone] Encounter Details Date Type Department Care Team (Late st Contact Info) Description 04/28/2024 Documentation Only [facility] [address] [address] Provider, MD Raheem [address] [place] [address] Social History Tobacco Use Types Packs/Day Years [...] Description 04/08/2025 12:30 PM CDT Office Visit [email or web address] [address] [place] [address] Taqueria Quarles DO [address] [place] [phone] documented as of this encounter Visit Diagnoses Not on filedocumented in this encounter Care Teams Straight Line Edger Relationship Specialty Start Date End Date Alton Seo MD [address] [place] [address] [place] [address] PCP - General Family Medicine 04/28/24 documented as of this encounter
--- OUTSIDE RECORDS SUMMARY | 2024-10-24 12:30 | XMS_ITS | Encounter Summary ---
Author Organization [facility] Address [address] [place] [address] Care Team Providers Care Clinical Sociologist Name Role Phone Alton Seo MD Primary Care Provider [phone] Encounter Details Date Type Department Care Team (Latest Contact Info) Description 10/07/2024 Travel Social History Tobacco Use Types Packs/Day [...] Description 04/08/2025 12:30 PM CDT Office Visit [facility], [address] [phone] Taqueria Quarles, [address] [place] [phone] documented as of this encounter Visit Diagnoses Not on filedocumented in this encounter Care Teams Clinical Sociologist Relationship Specialty Start Date End Date Alton Seo MD [address] [place] [phone] PCP - General Family Medicine 04/28/24 documented as of this encounter
--- OUTSIDE RECORDS SUMMARY | 2024-10-24 12:30 | XMS_ITS | Encounter Summary ---
Author Organization [facility] Address [address] [place], [place] [address] [place] [address] Phone Care Team Providers Care Crtts Name Role Phone Alton Seo MD Primary Care Provider [phone] Encounter Details Date Type Department Care Team (Late Contact Info) Description 07/29/[address] [facility] [address] [place] [address] Taqueria Quarles DO [address] [facility] 1 [place] [address] Social History Tobacco Use Types [...] Description 04/08/2025 12:30 PM CDT Office Visit [facility] [address] [place] [address] Taqueria Quarles DO [address] [facility] 1 [place] [address] documented as of this encounter Visit Diagnoses Not on filedocumented in this encounter Care Teams Crtts Relationship Specialty Start Date End Date Alton Seo MD [address] [place] [address] PCP - General Family Medicine 04/28/24 documented as of this encounter
--- OUTSIDE RECORDS SUMMARY | 2024-10-24 12:30 | XMS_ITS | Encounter Summary ---
Author Organization [email or web address] Address [address] [place] [phone] Phone Care Team Providers Care Nuclear Engineer Name Role Phone Alton Seo MD Primary Care Provider Encounter Details Date Type Department Care Team (Late st Contact Info) Description 10/08/2024 1:00 PM INSPECTING ENGINEER Office Visit [facility] [address] [place] [address] Taqueria Quarles DO [address] [facility] [address] [place] [address] Stage 3 chronic kidney disease, not otherwise specified (HCC) (Primary Dx); Obstructive sleep apnea syndrome; Secondary inflammatory arthritis; Gastroesophageal reflux disease; Pure hypercholesterolemia, not otherwise specified; Neuropathy of lower limb [...] Comments Blood Pressure 122/80 10/08/2024 1:15 PM INSPECTING ENGINEER Pulse 81 10/08/2024 1:15 PM INSPECTING ENGINEER Temperature 36.1 ??C (97 ??F) 10/08/2024 1:15 PM INSPECTING ENGINEER Respiratory Rate 18 10/08/2024 1:15 PM INSPECTING ENGINEER Oxygen Saturation 99% 10/08/2024 1:15 PM INSPECTING ENGINEER Inhaled Oxygen Concentration - - Weight 98.8 kg (217 lb 12.8 oz) 10/08/2024 1:15 PM INSPECTING ENGINEER Height - - Body Mass Index - - documented in this encounter Progress Notes * Taqueria Quarles DO - 10/08/2024 1:00 PM CST Images from the original note were not included. CC: Alton Pham MD ASSESSMENT: Stage 3a chronic kidney disease without proteinuria, presumably related to solitary kidney with prior salicylate use. Mild FABY GERD on PPI HLD on statin Inflammatory Arthritis with elevated CRP levels, to be followed by Rheumatology. Polyneuropathy controlled on Duloxetine IBS-D on dicyclomine Anxiety on Welbutrin & thrapy PLAN: - no medication changes today - no clear indication for SGLT 2 inhibitor - risk of CKD progression with PPI and salicylates has been discussed. - will attempt a 24 hour urine creatinine clearance with his next lab draw. - Return in 6 months with labs Thank you for allowing me to participate in the care of your patient. Sincerely, Taqueria Quarles DO SUBJECTIVE: Mr. Zeke Sandoval is a 44 y.o. WM with a PMHx of anxiety, morbid obesity, HLD, and congenital solitary right kidney with stage 3a chronic kidney disease without proteinuria for which we follow. His kidney function is stable with a SCr 1.4 mg/dL estimating a GFR of around 60 mL/min. Urines arebland and without proteinuria. Imaging found only one kidney, the left kidney is not visualized andis either atrophic, developmentally absent, or ectopic in an undefined location. Of note, he has multiple joint pains. He describes to be pain worst when His sed rate was relatively normal; however, his CRP was remarkably high. His primary care doctor has scheduled him a Rheumatology consult. He also appears to have a mood disorder with a significant anxiety component that has been complicated by neuropathy pain and irritable bowel syndrome with predominantly diarrhea symptoms. He is on anti anxiety/antidepressants and is being followed by GI. A 12 point review of systems is otherwise negative. 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 . EXAM: BP 122/80 Pulse 81 Temp 97 ??F Resp 18 Wt 217 lb 12.8 oz (98.8 kg) SpO2 99% NAD, alert and appropriate No JVD, moist oropharynx HRRR without murmur Lungs B CTA without expiratory wheezes Abdomen benign, nontender LE without edema Skin without petechae, purpura or livido Gait normal No focal neurologic deficits RESULTS: Chemistry Lab Units 10/01/24 0644 CREATININE mg/dL 1.42* EGFR mL/min/1.73m2 62 52* BUN mg/dL 12 SODIUM mmol/L 141 POTASSIUM mmol/L 3.7 CHLORIDE mmol/L 104 CO2 mmol/L 27 CALCIUM mg/dL 9.2 PHOSPHORUS mg/dL 4.4 VIT D 25 HYDROXY ng/mL 37 ALBUMIN g/dL 4.2 MAGNESIUM mg/dL 2.4 Labs Lab Units 10/01/24 0644 HEMOGLOBIN g/dL 14.5 PLATELETS AUTO Thousand/uL 314 Urine Lab Units 10/01/24 0644 PROT/CREAT RATIO UR mg/g creat 0.078 78 ALB MG/G CREAT UR mg/g creat 2 Labs 10/01/24: Cr 1.42, CC 1.41, BUN 12, K 3.7, Bicarb 27, Ca 9.2, VitD 37, Labs 10/01/24: Hgb 14.5, ESR 24, CRP high, C3 nl, C4 nl, Labs 10/01/24: UA bland; ACR nl, UPC nl, Labs 05/12/24: Cr 1.29, BUN 15, K 3.9, Ca 9.6, Alt 24, VitD 41, LDL 93, Labs 04/21/24: Cr 1.58, BUN 13, K 3.8, Na 140, Bicarb 29, Ca 9.6, Labs 04/21/24: RPR nr, HIV nr, HAV Ab nr, HBV SAg nr, HBV Sab +, HCV Ab nr, ACR nl, . . Kidney US 07/29/24: Right 14.2 cm, left kidney not visualized. Right kidney without hydronephrosis. CT chest WO 06/26/22: No plaque consistent with CAD. Thank you for allowing me to participate in the care of your patient. Sincerely, Taqueria Quarles DO documented in this encounter Plan of Treatment Upcoming Encounters Date Type Department Care Team (Late st Contact Info) Description 04/08/2025 12:30 PM CDT Office [facility] [address] [phone] Taqueria Quarles DO [address] [place] [phone] Scheduled Orders Name Type Priority Associated Diagnoses Orde r Schedule Cystatin C w/GFR Lab Routine Stage 3 chronic kidney disease, not otherwise specified (HCC) Obstructive sleep apnea syndrome Secondary inflammatory arthritis Gastroesophageal reflux disease Pure hypercholesterolemia, not otherwise specified 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> Expected: 10/08/2024, Expires: 11/08/2025 CBC Lab Routine Stage 3 chronic kidney disease, not otherwise specified (HCC) Obstructive sleep apnea syndrome Secondary inflammatory arthritis Gastroesophageal reflux disease Pure hypercholesterolemia, not otherwise specified 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> Expected: 10/08/2024, Expires: 11/08/2025 Renal function panel Lab Routine Stage 3 chronic kidney disease, not otherwise specified (HCC) Obstructive sleep apnea syndrome Secondary inflammatory arthritis Gastroesophageal reflux disease Pure hypercholesterolemia, not otherwise specified 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> Expected: 10/08/2024, Expires: 11/08/2025 Magnesium Lab Routine Stage 3 chronic kidney disease, not otherwise specified (HCC) Obstructive sleep apnea syndrome Secondary inflammatory arthritis Gastroesophageal reflux disease Pure hypercholesterolemia, not otherwise specified 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> Expected: 10/08/2024, Expires: 11/08/2025 Vitamin D 25 hydroxy Lab Routine Stage 3 chronic kidney disease, not otherwise specified (HCC) Obstructive sleep apnea syndrome Secondary inflammatory arthritis Gastroesophageal reflux disease Pure hypercholesterolemia, not otherwise specified 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> Expected: 10/08/2024, Expires: 11/08/2025 Urine Protein / creatinine ratio Lab Routine Stage 3 chronic kidney disease, not otherwise specified (HCC) Obstructive sleep apnea syndrome Secondary inflammatory arthritis Gastroesophageal reflux disease Pure hypercholesterolemia, not otherwise specified 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> Expected: 10/08/2024, Expires: 11/08/2025 Urine Albumin / Creatinine Ratio Lab Routine Stage 3 chronic kidney disease, not otherwise specified (HCC) Obstructive sleep apnea syndrome Secondary inflammatory arthritis Gastroesophageal reflux disease Pure hypercholesterolemia, not otherwise specified 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> Expected: 10/08/2024, Expires: 11/08/2025 Urine Creatinine clearance, 24 hour Lab Routine Stage 3 chronic kidney disease, not otherwise specified (HCC) Obstructive sleep apnea syndrome Secondary inflammatory arthritis Gastroesophageal reflux disease Pure hypercholesterolemia, not otherwise specified 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> Expected: 10/08/2024, Expires: 10/08/2025 Sedimentation Rate Lab Routine Stage 3 chronic kidney disease, not otherwise specified (HCC) Obstructive sleep apnea syndrome Secondary inflammatory arthritis Gastroesophageal reflux disease Pure hypercholesterolemia, not otherwise specified 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> Expected: 10/08/2024, Expires: 11/08/2025 C-Reactive Protein Lab Routine Stage 3 chronic kidney disease, not otherwise specified (HCC) Obstructive sleep apnea syndrome Secondary inflammatory arthritis Gastroesophageal reflux disease Pure hypercholesterolemia, not otherwise specified 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> Expected: 10/09/2024, Expires: 11/08/2025 documented as of this encounter Visit Diagnoses Diagnosis Stage 3 chronic kidney disease, not otherwise specified (HCC)- Primary Obstructive sleep apnea syndrome Secondary inflammatory arthritis Gastroesophageal reflux disease Pure hypercholesterolemia, not otherwise specified 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> documented in this encounter Care Teams Nuclear Engineer Relationship Specialty Start Date End Date Alton Seo MD [address] [place] [phone] PCP - General Family Medicine 04/28/24 documented as of this encounter
--- OUTSIDE RECORDS SUMMARY | 2024-10-24 12:30 | XMS_ITS | Encounter Summary ---
Author Organization [facility] Address [address] [place] [phone] Phone Care Team Providers Care Facility Maintenance Worker Name Role Phone Alton Seo MD Primary Care Provider [phone] Encounter Details Date Type Department Care Team (Late Contact Info) Description 10/05/2024 Orders Only [facility] [address] [place] [address] Taqueria Quarles DO [address] [facility] 1 [place] [phone] Social History Tobacco Use Types [...] Description 04/08/2025 12:30 PM CDT Office Visit [facility] [address] [place] [phone] Taqueria Quarles DO [address] [facility] 1 [place] [phone] documented as of this encounter Procedures Procedure Name Priority Date/Time Associated Diagnosis Comments CREATININE, URINE, 24 HOUR Routine 10/05/2024 8:40 AM RN PAR[place]GAL documented in this encounter Results * Creatinine, urine, 24 hour (10/05/2024 8:40 AM RN PARALEGAL) Creatinine in 24 hour Urine 1.70 0.50 - 2.15 g/24 h See order comments Comment:URINE VOLUME: 1600/2 4 10/05/2024 8:40 AM RN PAR[place]GAL 10/05/2024 5:39 PM RN [facility]GAL Narrative [facility] - 10/05/2024 11:38 PM RN PAR[place]GAL SPLIT 10/01/2024 FROM [id number] Resulting Agency Comment Performing Organization Information: ?Site ID: ?[email or web address] ?Address: [facility] [place] [address] ?Director: Viridiana Boss us Taqueria Quarles DO LAB URINE ORDERABLES Final R esult [facility] See order comments [place] [address] documented in this encounter Visit Diagnoses Not on filedocumented in this encounter Care Teams Facility Maintenance Worker Relationship Specialty Start Date End Date Alton Seo MD [address] [place] [phone] PCP - General Family Medicine 04/28/24 documented as of this encounter
== END 2024-10-17 11:34 | disposition home or self-care (01) ==
PROVIDERS: Emergency Provider Emergency Medicine; PCP Family Medicine
DX: K52.9 Noninfective gastroenteritis and colitis, unspecified (principal); E86.0 Dehydration; Z90.5 Acquired absence of kidney; R93.41 Abnormal radiologic findings on diagnostic imaging of renal pelvis, ureter, or bladder
CPT/HCPCS: 36415; 74177; 80053; 81001; 83690; 85025; 96361; 96374; 96375; 99284; J2405; J3010; J7030; Q9967